=== PATIENT | female | born 1945 | race Caucasian/White ===

== ENCOUNTER 2016-05-27 22:04 | Emergency (ER) | payer OTHER ==
[~2016-05-27] VITALS: Ht 162.6 cm; Wt 49.9 kg
[~2016-05-27 22:04] MED LIST: AMBIEN10 M1 PO; AUGMENTIN 875 M1 TAB PO; BONIVA150 MG PO; CORGARD80 M1 PO; EXCEDRIN EXTRA1 SGL PO; FIORICET 325 MG1 TAB PO; LEADER MELATONIN5 MG PO; LEVOTHYROXINE100 MC1 PO; MULTIVITAMIN1 TAB PO; ONDANSETRON ODT4 MG PO; PRAVACHOL40 M1 PO; PREDNISONE 20MG20 MG PO; PRINIVIL10 M1 PO; SINGULAIR10 M1 PO; SUMATRIPTAN SU100 MG PO; VENLAFAXINE HY150 MG PO; VENLAFAXINE HYD75 MG PO; VITAMIN C500 M3 PO
--- NOTE | 2016-05-27 23:16 | ED HEADACHE COMPLAINT ---
History of Present Illness General Chief Complaint: Headache Stated Complaint: HEADACHE X 2 DAYS,DOUBLE VISION Source: patient Exam Limitations: no limitations Vital Signs & Intake/Output Vital Signs & Intake/Output Vital Signs Date Time Temp Pulse Resp B/P Pulse O2 O2 Flow FiO2 Ox Delivery Rate 05/28 0611 98.5 84 18 125/66 95 Room Air 05/28 0330 101.3 05/28 0134 101.3 83 20 186/94 96 Room Air 05/27 2315 199/98 05/27 2212 101.2 87 18 193/98 93 Room Air ED Intake and Output 05/28 0000 05/27 1200 Intake Total 0 Output Total Balance 0 Intake, Oral 0 Patient 110 lb Weight Allergies Coded Allergies: azithromycin (Intermediate, HIGH BP 05/27/16) carisoprodol (From Soma) (Intermediate, MAKES ME DRUNK 05/27/16) Reconcile Medications Acetaminophen/Butalbital/Caf (Fioricet 325 MG-50 MG-40 MG) 1 TAB TAB 1 TAB PO TID PRN HEADACHES AMOXICILLIN/POTASSIUM CLAV (Augmentin 875-125 Tablet) 875 MG/125 MG TAB 1 TAB PO BID SINSUITIS Ascorbic Acid (Vitamin C) (Unknown Strength) TAB (Unknown Dose) PO DAILY SUPPLEMENT (Reported) ASPIRIN/ACETAMINOPHEN/CAFFEINE (Excedrin Extra Strength Gelcap) 1 SGL SGL 1-5 TAB PO PRN MIGRAINES (Reported) Ibandronate Sodium (Boniva) 150 MG TAB 1 TAB PO Q30D BONES (Reported) on the same date with a full glass of water at least 30 minutes before first food or drink of the day; remain in an upright posi Levothyroxine Sodium (Levothroid Sodium) 0.1 MG TAB 1 TAB PO DAILY HASHIMOTOS (Reported) Lisinopril (Prinivil) 5 MG TAB 1 TAB PO DAILY BP (Reported) Melatonin 5 MG TAB 1 TAB PO QPM SLEEP (Reported) Montelukast Sodium (Singulair) 10 MG TAB 1 TAB PO DAILY COPD (Reported) Multivitamin (Multiple Vitamins) 1 TAB TAB 1 TAB PO DAILY SUPPLEMENT ( Reported) Nadolol 80 MG TAB 1 TAB PO DAILY BP (Reported) Ondansetron (Ondansetron Odt) 4 MG ODT 1 TAB PO PRN N/V (Reported) Oseltamivir Phosphate (Tamiflu) 75 MG CAPSULE 1 CAP PO BID FLU Pravastatin Sodium 40 MG TAB 1 TAB PO QPM CHOLESTEROL (Reported) Prednisone 20 MG TAB 3 TAB PO DAILY MIGRAINE Sumatriptan Succinate 100 MG TAB 1 TAB PO AD PRN MIGRAINES (Reported) may repeat in 2 hours; do not exceed 200 mg in 24 hours VENLAFAXINE HCL (Venlafaxine Hydrochloride) 75 MG TAB 1 TAB PO QAM MENTAL HEALTH (Reported) VENLAFAXINE HCL (Venlafaxine HCl ER) 150 MG CER 1 CAP PO Q1600 MENTAL HEALTH (Reported) Zolpidem Tartrate (Ambien 10MG) 10 MG TAB 1 TAB PO QPM PRN SLEEP (Reported) Triage Note: PT TO TRIAGE WITH C/O HEADACHE 11/09, SINUS CONGESTION, PRODUCTIVE COUGH, NAUSEA x2DAYS. TEMP 101.9 IN TRIAGE, BP 193/98. PT DENIES CHEST PAIN,SOB, DENIES ABD PAIN,V/D, DENIES URINARY S/S. ALSO PT REPORTS DOUBLE VISION TO L EYE WHICH IS CRONIC. Triage Nurses Notes Reviewed? yes HPI: Patient presents for evaluation of a migratory headache that began yesterday. She states she was seen once before for a headache like this and was treated for migraine with improvement. She denies any associated fever or cold symptoms. She denies any trouble moving her neck around. The headache pain described as severe constant and nothing seems to make it feel better or worse. Also had nasal congestion. She had a CAT scan done yesterday by her primary care physician though she doesn't know the result. Past History Travel History Traveled to [place] past 21 day No Medical History Any Pertinent Medical History? see below for history Cardiovascular: hypertension, HIGH CHOLESTEROL Respiratory: COPD Gastrointestinal: DIVERTICULITIS Musculoskeletal: OSTEOPOROSIS Psychiatric: anxiety, depression Endocrine: JENNY'S Cancer(s): BREAST CA Surgical History Surgical History: non-contributory Psychosocial History What is your primary language Persian Tobacco Use: Never used Family History Hx Contributory? No Review of Systems Review of Systems Constitutional: Reports: no symptoms. Eyes: Reports: no symptoms. Ears, Nose, Throat, Mouth: Reports: see HPI. Respiratory: Reports: no symptoms. Cardiovascular: Reports: no symptoms. Gastrointestinal/Abdominal: Reports: no symptoms. Genitourinary: Reports: no symptoms. Musculoskeletal: Reports: no symptoms. Skin: Reports: no symptoms. Neurological/Psychological: Reports: headache. Hematologic/Endocrine: Reports: no symptoms. Endocrine: Reports: no symptoms. Immunologic/Allergic: Reports: no symptoms. All Other Systems: Reviewed and Negative Physical Exam Physical Exam Cranial Nerves: SEE BELOW Comments: Gen.: Well-nourished, well-developed, no acute respiratory distress. Head: Normocephalic, atraumatic. Eyes: Normal inspection bilaterally Ears: Normal inspection bilaterally Nose: Normal inspection Throat/mouth : Moist mucosa Neck: Supple, full range of motion, no goiter Heart: Regular rate and rhythm, no murmurs rubs or gallops Lungs: Clear to auscultation bilaterally with normal air entry Chest: Nontender Back: Normal range of motion Abdomen: Soft, nontender, nondistended, normal bowel sounds Extremities: Normal range of motion grossly, equal radial pulses, no cyanosis clubbing or edema Neurologic: Cranial nerves grossly intact, speech is clear Skin: warm and dry Psychiatric: Calm, cooperative, no apparent delusions or hallucinations Core Measures Severe Sepsis Present: No Septic Shock Present: No Progress Differential Diagnosis: migraine CROCKETT, musculoskeletal pain, viral cephalgia Plan of Care: Orders Procedure Date/time Status RAPID VIRAL INFLUENZA A 05/27 2316 Complete Microbiology 05/27 2317 NASOPHARYN: Influenza Virus A & B Rapid Smear - COMP INFLUENZA TYPE A Comments: 05/28/2016 12:41:19 AM Kristina is unsure if she requires any additional medication. When her nurse came in to give her additional pain medications she stated that she didn't need it. I went in to reevaluate her she stated that her head still hurts. But then she seemed to recanted. Seems that she is rather sedated by the Phenergan so I will reevaluate later and medicate accordingly. Hopefully at that time her sensorium will have cleared. 05/28/2016 3:22:06 AM Kristina is answering questions much more readily and her sensorium seems considerably clearer. She states her headache is now over the right forehead (the headache seems to move around). We will recheck a temperature and give a dose of acetaminophen. 05/28/2016 6:40:20 AM Per patient's RN, she is afebrile and her headache is resolved. Departure Departure Disposition: HOME OR SELF CARE Condition: Stable Clinical Impression Primary Impression: Migraine Qualifiers: Migraine type: unspecified Status migrainosus presence: with status migrainosus Intractability: not intractable Qualified Code: G43.901 - Migraine, unspecified, not intractable, with status migrainosus Secondary Impressions: Influenza Referrals: VISHAL SCHWARZ MD (PCP/Family) Additional Instructions: Tamiflu as prescribed. Ibuprofen 600 mg every 6 hours as needed for fever or cold symptoms or pain. Follow-up with your primary care physician this week for reevaluation if not improving. Return if any concerns or sudden worsening. Departure Forms: Customer Survey General Discharge Information Prescriptions: Current Visit Scripts Oseltamivir Phosphate (Tamiflu) 1 CAP PO BID #10 CAP
[2016-05-28 06:11] VITALS: BP 125/66
[2016-05-28] MEDS ORDERED: TAMIFLU75 M1 PO (06:15)
== END 2016-05-28 07:09 ==
LOC: ERH 22:04
DX: G43.909 Migraine, unspecified, not intractable, without status migrainosus (principal); J11.1 Influenza due to unidentified influenza virus with other respiratory manifestations
CPT/HCPCS: 87804; 87804-59; 96374; 96375; J0131; J1885; J2550

== ENCOUNTER 2016-06-05 05:24 | Inpatient (IN) | payer OTHER ==
[~2016-06-05] VITALS: Ht 161.3 cm; Wt 47.3 kg
[~2016-06-05 05:24] MED LIST changes: +TAMIFLU75 M1 PO
--- NOTE | 2016-06-05 05:42 | NUR ---
PT TO ED C/O INSOMNIA, FATIGUE AND POOR APPETITE FOR 2 DAYS. DX WITH FLU 1 WEEK AGO. JUSTFINISHED TAMILFLU. "FOOD IS TASTELESS" DR ALEJANDRO INTO EVAL PT
--- NOTE | 2016-06-05 05:50 | ED AMS/SEIZURE/WEAK/DIZZY ---
History of Present Illness General Chief Complaint: General Adult Stated Complaint: "NOT ABLE TO SLEEP NOR EAT X2DAYS,WEAKNESS" Source: patient Exam Limitations: no limitations Vital Signs & Intake/Output Vital Signs & Intake/Output Vital Signs Date Time Temp Pulse Resp B/P Pulse O2 O2 Flow FiO2 Ox Delivery Rate 06/05 1457 97.3 68 18 156/90 96 06/05 0651 97.3 68 18 127/69 97 Room Air 06/05 0555 95 Room Air 06/05 0545 184/96 06/05 0540 95.9 79 18 178/101 95 Room Air Allergies Coded Allergies: azithromycin (Intermediate, HIGH BP 05/27/16) carisoprodol (From Soma) (Intermediate, MAKES ME DRUNK 05/27/16) Triage Note: PT TO ED C/O INSOMNIA, FATIGUE AND POOR APPETITE FOR 2 DAYS. DX WITH FLU 1 WEEK AGO. JUSTFINISHED TAMILFLU. "FOOD IS TASTELESS" DR FLAVIA GOMEZ EVAL PT Triage Nurses Notes Reviewed? yes Onset: Gradual Duration: day(s): Timing: recent history Injury Environment: home Severity: moderate Modifying Factors: Improves With: rest. Associated Symptoms: weakness HPI: 70-year-old woman presents with weakness and insomnia. She states that she was diagnosed with influenza last week. She completed 5 days of Tamiflu. She states, "since then I have been so weak. I can't eat. The food tastes so plan. I haven't slept in days. I just feel so weak and so tired all over." She denies fever diarrhea dysuria chest pain shortness of breath. (FLAVIA ESPINOSA,MALCOLM Zamorano) Reconcile Medications Ibandronate Sodium (Boniva) 150 MG TABLET 1 TAB PO Q30D BONE (Reported) on the same date with a full glass of water at least 30 minutes before first food or drink of the day; remain in an upright posi Levothyroxine Sodium 100 MCG TABLET 1 TAB PO DAILY AC THYROID (Reported) Lisinopril (Prinivil) 10 MG TABLET 1 TAB PO DAILY HEART (Reported) Mirtazapine 30 MG TABLET 1 TAB PO QPM SLEEP (Reported) Montelukast Sodium (Singulair) 10 MG TABLET 1 TAB PO DAILY COPD (Reported) Nadolol (Corgard) 80 MG TABLET 1 TAB PO DAILY HEART (Reported) Oseltamivir Phosphate (Tamiflu) 75 MG CAPSULE 1 CAP PO BID FLU Pravastatin Sodium (Pravachol) 40 MG TABLET 1 TAB PO DAILY CHOLESTEROL ( Reported) Zolpidem Tartrate (Ambien) 10 MG TABLET 1 TAB PO QPM SLEEP (Reported) (LIZBETH ESPINOSA,ELIAZAR Fletcher) Past History Travel History Traveled to [place] past 21 day No Medical History Any Pertinent Medical History? see below for history Cardiovascular: hypertension, HIGH CHOLESTEROL Respiratory: COPD Gastrointestinal: DIVERTICULITIS Musculoskeletal: OSTEOPOROSIS Psychiatric: anxiety, depression Endocrine: JENNY'S Cancer(s): BREAST CA Surgical History Surgical History: non-contributory Psychosocial History What is your primary language Italian Family History Hx Contributory? No (FLAVIA ESPINOSA,MALCOLM Zamorano) Review of Systems Review of Systems Constitutional: Reports: no symptoms. EENTM: Reports: no symptoms. Respiratory: Reports: no symptoms. Cardiovascular: Reports: no symptoms. GI: Reports: no symptoms. Genitourinary: Reports: no symptoms. Musculoskeletal: Reports: no symptoms. Skin: Reports: no symptoms. Neurological/Psychological: Reports: no symptoms. Hematologic/Endocrine: Reports: no symptoms. Immunologic/Allergic: Reports: no symptoms. All Other Systems: Reviewed and Negative (FLAVIA ESPINOSA,MALCOLM Zamorano) Physical Exam Physical Exam General Appearance: well developed/nourished, moderate distress Head: atraumatic Eyes: Bilateral: normal appearance. Ears, Nose, Throat: normal pharynx, normal ENT inspection, dry mucosa Neck: normal inspection, supple, full range of motion Respiratory: normal breath sounds, chest non-tender, no respiratory distress, quiet respiration, lungs clear Cardiovascular: regular rate/rhythm Gastrointestinal: normal bowel sounds, soft, non-tender, no organomegaly Back: normal inspection, normal range of motion, vertebral tenderness Extremities: normal range of motion Neurologic/Psych: no motor/sensory deficits, awake, alert, oriented x 3 Skin: intact, normal color, warm/dry Core Measures ACS in differential dx? No CVA/TIA Diagnosis: No Severe Sepsis Present: No Septic Shock Present: No (FLAVIA ESPINOSA,MALCOLM Zamorano) Progress Differential Diagnosis: dehydration versus renal failure versus postviral syndrome versus other Plan of Care: Orders Procedure Date/time Status Regular Diet 06/05 D Active Patient Data - inpatient psych 06/05 1406 Active Admit to inpatient psych 06/05 1406 Active Add-on Test (ER Only) 06/05 1308 Active ED CRISIS PSYCH CONSULT 06/05 1308 Active THYROID STIMULATING HORMONE 06/05 0555 Complete ETHANOL 06/05 0555 Complete Intake & Output 06/05 0554 Active URINE DRUGS OF ABUSE 06/05 0532 Complete URINALYSIS 06/05 0532 Complete TROPONIN LEVEL 06/05 0532 Complete COMPREHENSIVE METABOLIC PANEL 06/05 0532 Complete CBC WITHOUT DIFFERENTIAL 06/05 0532 Complete EKG 06/05 0532 Active Vital Signs 06/05 UNK Active Nursing Misc 06/05 UNK Active Alternative Nursing Therapy 06/05 UNK Active Activity/Ambulation 06/05 UNK Active Current Medications Sig/Dylan Start time Last Medication Dose Stop Time Status Admin Lisinopril 10 MG DAILY 06/06 1000 UNVr (Prinivil) Nadolol 80 MG DAILY 06/06 1000 UNVr (Corgard) Pravastatin Sodium 40 MG DAILY 06/06 1000 UNVr (Pravachol) Levothyroxine Sodium 0.1 MG DAILY AC 06/06 0700 UNVr (Synthroid) Mirtazapine 30 MG AT BEDTIME 06/05 2200 AC (Remeron) Montelukast Sodium 10 MG AT BEDTIME 06/05 2200 AC (Singulair) Zolpidem Tartrate 10 MG AT BEDTIME 06/05 2200 AC (Ambien) Acetaminophen 500 MG Q6P PRN 06/05 1430 UNVr (Tylenol) Al Hydroxide/Mg 30 ML Q6-PRN PRN 06/05 1430 UNVr Hydroxide (Maalox Plus) Magnesium Hydroxide 30 ML AT BEDTIME PRN 06/05 1430 UNVr (Milk Of Magnesia) Laboratory Tests 06/05/16 0850: Urine Opiates Screen < 100.00, Methadone Screen < 40, Barbiturate Screen < 60, Ur Phencyclidine Scrn < 6.00, Amphetamines Screen < 100, U Benzodiazepines Scrn < 85, Urine Cocaine Screen < 50, Urine Cannabis Screen < 5.00, Urine Color YEL, Urine Clarity CLEAR, Urine pH 6.5, Ur Specific [place] 1.010, Urine Protein NEG, Urine Ketones NEG, Urine Nitrite NEG, Urine Bilirubin NEG, Urine Urobilinogen 0.2, Ur Leukocyte Esterase NEG, Ur Microscopic EXAM NOT REQUIRED, Urine Hemoglobin NEG, Urine Glucose NEG 06/05/16 0555: Anion Gap 9, Estimated GFR > 60, BUN/Creatinine Ratio 34.4 H, Glucose 96, Calcium 9.9, Total Bilirubin 0.8, AST 27, ALT 40, Alkaline Phosphatase 56, Troponin I < 0.01, Total Protein 7.1, Albumin 3.7, Globulin 3.4, Albumin/ Globulin Ratio 1.1, TSH 11.800 H, CBC w Diff NO MAN DIFF REQ, RBC 4.85, MCV 86.7, MCH 28.2, RDW 13.2, MPV 6.9 L, Gran % 76.0 H, Lymphocytes % 12.5 L, Monocytes % 8.2, Eosinophils % 2.7, Basophils % 0.6, Absolute Granulocytes 10.7 H, Absolute Lymphocytes 1.8, Absolute Monocytes 1.2 H, Absolute Eosinophils 0.4 , Absolute Basophils 0.1, PUBS MCHC 32.5 L, Serum Alcohol < 10.0 Initial ED EKG: normal axis, normal intervals, normal p-waves, normal QRS complex, normal sinus rhythm Hand-Off Endorsed To: LIZBETH ESPINOSA,ELIAZAR Fletcher Endorsed Time: 717 Pending: labs, other (CLINICAL RESPONSE) (FLAVIA ESPINOSA,MALCOLM Zamorano) Comments: 06/05/2016 10:45:33 AM patient signed out to me by Dr. Davey at shift acid changer. I have reevaluated Kristina and she is still concerned about her worsening insomnia over the past week or so. She states the Ambien is no longer helping her. She states she has been treated for depression in the past and feels that there is an element of depression recently (she doesn't take any antidepressant medications currently). She is willing to speak with crisis about these issues. 06/05/2016 11:33:53 AM patient's case discussed with crisis. 06/05/2016 1:08:37 PM the patient appears to be severely depressed and inpatient psychiatry admission is being considered. (LIZBETH ESPINOSA,ELIAZAR Fletcher) Departure Departure Condition: Stable Departure Forms: Customer Survey General Discharge Information Comments pt with elevated bun/cr ratio... likely post-viral myalgia/dehydration/ weakness... Will hydrate... Pt signed out to dr. smith for clinical response. (FLAVIA ESPINOSA,MALCOLM Zamorano) Departure Disposition: STILL A PATIENT Clinical Impression Primary Impression: Weakness Secondary Impressions: Depression Qualifiers: Depression Type: unspecified Qualified Code: F32.9 - Major depressive disorder, single episode, unspecified Referrals: VISHAL SCHWARZ MD (PCP/Family) (ELIAZAR SMITH MD
--- NOTE | 2016-06-05 05:53 | NUR ---
DRY COUGH NOTED. RHONCHI ON AUSCULTAION PT STATES SHE HAS HAD COUGH FOR A COUPLE OF WEEKS "IT WILL BECOME MORE PRODUCTIVE LATER IN THE DAY, IT ALSWAYS STARTS OUT DRY"
[2016-06-05 06:05] LABS: ABSOLUTE BASOPHIL COUNT 0.1 /CUMM (0.0-0.2); ABSOLUTE EOSINOPHIL COUNT 0.4 /CUMM (0.0-0.7); ABSOLUTE GRANULOCYTE CT 10.7 /CUMM (1.4-6.5); ABSOLUTE LYMPH COUNT 1.8 /CUMM (1.2-3.4); ABSOLUTE MONOCYTE COUNT 1.2 /CUMM (0.10-0.60); BASOPHIL % 0.6 % (0.0-2.0); EOSINOPHIL % 2.7 % (0-5); HEMATOCRIT 42.1 % (37-47); MEAN CORPUSCULAR HGB 28.2 PG (27.0-31.0); MEAN CORPUSCULAR HGB CONC 32.5 G/DL (33.0-37.0); MEAN CORPUSCULAR VOLUME 86.7 FL (81.0-99.0); MEAN PLATELET VOLUME 6.9 FL (7.4-10.4); PLATELET COUNT 414 /CUMM (130-400); RBC DISTRIBUTION WIDTH 13.2 % (11.5-14.5); RED BLOOD CELL CT 4.85 /CUMM (4.20-5.40); WHITE BLOOD CELL COUNT 14.1 /CUMM (4.8-10.8)
--- NOTE | 2016-06-05 06:05 | NUR ---
PT MEDICATED WITH 0.5 MG ATIVAN PO ORDERED. 1L NS INFUSING
--- NOTE | 2016-06-05 07:30 | NUR ---
PT RESTING COMFORTABLY AT THIS TIME, PT AWARE OF NEED FOR URINE SPECIMEN WHEN ABLE TO PROVIDE. PT STATING "I'M JUST WIPED OUT".
--- NOTE | 2016-06-05 07:53 | RADIOLOGY REPORT ---
EXAMINATION: XR PORTABLE CHEST CLINICAL INFORMATION: Cough and dyspnea. COMPARISON: None TECHNIQUE: Portable AP view of the chest was obtained. FINDINGS: The cardiomediastinal silhouette is within normal limits. The lungs are hyperexpanded. There is bronchial wall thickening with reticular nodular opacities throughout both lungs. Biapical scarring. No focal consolidation or effusion. IMPRESSION: Hyperexpanded lungs with airway wall thickening and reticulonodular interstitial pattern throughout both lungs. Findings may reflect chronic bronchitis, but an acute component cannot be excluded as there is no prior for comparison. The nodular opacities may reflect mucous plugging, but true parenchymal nodules cannot be excluded. Recommend CT chest with intravenous contrast for further evaluation.
--- NOTE | 2016-06-05 09:00 | NUR ---
PT AMBULATORY TO BATHROOM, GAIT STABLE. URINE TRIO SENT TO LAB.
--- NOTE | 2016-06-05 09:43 | NUR ---
PT NAPPING AT THIS TIME, NO COMPLAINTS AT PRESENT.
--- NOTE | 2016-06-05 10:20 | NUR ---
PT RESTING ON STRETCHER, WATCHING TV AT THIS TIME. NO COMPLAINTS AT PRESENT, PT STATING "I JUST WISH I COULD SLEEP".
[2016-06-05] MEDS ORDERED: BONIVA150 M1 PO (10:51)
[2016-06-05] MEDS ORDERED: MIRTAZAPINE30 M2 PO (10:51)
--- NOTE | 2016-06-05 12:23 | NUR ---
CRISIS NNAMDI IN TO [facility] PT, PT CURRENTLY ON PHONE WITH DAUGHTER AT THIS TIME.
--- NOTE | 2016-06-05 12:46 | NUR ---
PT NOW OFF PHONE, AMBULATORY TO DOORWAY ASKING OF WATER. PT'S CUP FROM HOME FILLED WITH ICE WATER.
--- NOTE | 2016-06-05 13:10 | NUR ---
CRISIS NNAMDI IN TO [facility] PT CONSENTING FOR CPS ADMISSION. SECURITY MAGALYS AT BEDSIDE FOR WANDING AT THIS TIME.
--- NOTE | 2016-06-05 13:38 | ED PSYCH CRISIS CONSULTATION ---
Crisis Consult Basic Assessment Date of Consult: 06/05/16 Responsible Person/Accompanied By: self Insurance Authorization: Insurance #1: Insurance name: [employer] Phone number: Policy number: [id number] Group number: [id number] Authorization number: ED Provider: Patient's ED Provider: ELIAZAR NIEVES MD Primary Care Physician: Patient's PCP: VISHAL SCHWARZ MD PCP's Current Psychiatrist: none Chief Complaint: General Adult Patient's Quote: "There is no purpose to life anymore" Present Illness: Pt is a 70yo female who self presented to the emergency room due to feeling weak and unable to sleep. As the ED MD was speaking with her it became clear that pt is suffering from severe Depression, so crisis was asked to evaluate her. Pt presents as very despondent and tearful. She reports that she has not been sleeping, eating, going to work, cleaning her home, nor attending to her personal hygiene due to the severity of her depression. Pt also reports that she has been isolating. Pt reports low motivation, lose of interest, hopelessness and helplessness. Pt denies any suicidal ideation, but she does express there is "There is no purpose to life anymore." Pt denies any alcohol or substance use. Pt denies that she is in any current mental health tx, but admits to prior inpt psych tx in the at [facility] and was also in out pt tx ther. Pt does not remember the specific year. Pt would like to be admitted voluntarily to address her depression. Crisis spoke with Pt's daughter Concepción zSymanski [phone] who expressed great concern for her Mom and is worried that if she does not get help that she may become suicidal sincere she is already stating that there is no more purpose. She supports her mother being admitted to treat her depression. She asks that pt not be given xanax as pt was on it for 10 years and became dependent on it. case reviewed with Dr. Ho who approved admit to [facility]. Patient's Address: [address] [place] [address] Other Phone Number: Who Do You Live With? Patient/Self Family/Informants Interviewed: daughter Allergies - Coded Allergies: azithromycin (Intermediate, HIGH BP 05/27/16) carisoprodol (From Soma) (Intermediate, MAKES ME DRUNK 05/27/16) Current Medications - Scheduled Medications Ibandronate Sodium (Boniva) 150 MG TABLET 1 TAB PO Q30D BONE #3 (Reported) Entered as Reported by SUSAN GOMES on 06/05/16 1051 Levothyroxine Sodium 100 MCG TABLET 1 TAB PO DAILY AC THYROID (Reported) Entered as Reported by RODY FARRIS on 02/19/15 190 Lisinopril (Prinivil) 10 MG TABLET 1 TAB PO DAILY HEART (Reported) Entered as Reported by RODY FARRIS on 02/19/15 190 Mirtazapine 30 MG TABLET 1 TAB PO QPM SLEEP #30 (Reported) Entered as Reported by SUSAN GOMES on 06/05/16 1051 Montelukast Sodium (Singulair) 10 MG TABLET 1 TAB PO DAILY COPD (Reported) Entered as Reported by RODY FARRIS on 02/19/15 190 Nadolol (Corgard) 80 MG TABLET 1 TAB PO DAILY HEART (Reported) Entered as Reported by RODY FARRIS on 02/19/15 191 Oseltamivir Phosphate (Tamiflu) 75 MG CAPSULE 1 CAP PO BID FLU #10 CAP Prescribed by ELIAZAR NIEVES MD on 05/28/16 Pravastatin Sodium (Pravachol) 40 MG TABLET 1 TAB PO DAILY CHOLESTEROL ( Reported) Entered as Reported by RODY FARRIS on 02/19/151904 Zolpidem Tartrate (Ambien) 10 MG TABLET 1 TAB PO QPM SLEEP (Reported) Entered as Reported by RODY FARRIS on 02/19/151906 Laboratory Results: Laboratory Tests 06/05/16 0850: Urine Opiates Screen < 100.00, Methadone Screen < 40, Barbiturate Screen < 60, Ur Phencyclidine Scrn < 6.00, Amphetamines Screen < 100, U Benzodiazepines Scrn < 85, Urine Cocaine Screen < 50, Urine Cannabis Screen < 5.00, Urine Color YEL, Urine Clarity CLEAR, Urine pH 6.5, Ur Specific Mcroberts 1.010, Urine Protein NEG, Urine Ketones NEG, Urine Nitrite NEG, Urine Bilirubin NEG, Urine Urobilinogen 0.2, Ur Leukocyte Esterase NEG, Ur Microscopic EXAM NOT REQUIRED, Urine Hemoglobin NEG, Urine Glucose NEG 06/05/16 0555: Anion Gap 9, Estimated GFR > 60, BUN/Creatinine Ratio 34.4 H, Glucose 96, Calcium 9.9, Total Bilirubin 0.8, AST 27, ALT 40, Alkaline Phosphatase 56, Troponin I < 0.01, Total Protein 7.1, Albumin 3.7, Globulin 3.4, Albumin/ Globulin Ratio 1.1, TSH 11.800 H, CBC w Diff NO MAN DIFF REQ, RBC 4.85, MCV 86.7, MCH 28.2, RDW 13.2, MPV 6.9 L, Gran % 76.0 H, Lymphocytes % 12.5 L, Monocytes % 8.2, Eosinophils % 2.7, Basophils % 0.6, Absolute Granulocytes 10.7 H, Absolute Lymphocytes 1.8, Absolute Monocytes 1.2 H, Absolute Eosinophils 0.4 , Absolute Basophils 0.1, PUBS MCHC 32.5 L, Serum Alcohol < 10.0 Past History Past Medical History Cardiovascular: hypertension, HIGH CHOLESTEROL Respiratory: COPD Gastrointestinal: DIVERTICULITIS Musculoskeletal: OSTEOPOROSIS Psychiatric: anxiety, depression Endocrine: JENNY'S Cancer(s): BREAST CA Past Surgical History Surgical History: non-contributory Psychosocial History Strengths/Capabilities: supportive family, accepting help Physical Limitations (Interventions): none reported Psychiatric Treatment History Psych Treatment Psychiatric Treatment Yes Inpatient Treatment Yes Outpatient Treatment Yes Location of Treatment [facility] Reason for Treatment Depression Dates of Treatment Response to Treatment unclear Diagnosis by History: Depression Substance Use/Abuse History Drug Use/Abuse Substances Used/Abused No Substance Abuse Treatment Substance Abuse Treatment Past Substance Abuse [place] No Inpatient Treatment No Outpatient Treatment No Current Mental Status Mental Status Orientation: Person, Place, Situation Affect: Depressed, Hopeless, Sad Speech: WNL Neuro-vegetative: Anhedonia, Appetite Decreased, Concentration Poor, Energy Decreased, Helpless, Loss of Interest, Sleep Disturbance Appearance Appearance- Dress/Hygiene: pt reports that she has only showered 1x in a week Behaviors Thought Process: WNL Thought Content: WNL Memory: WNL Insight: WNL SI/HI Risk Assessment Past Suicidal Ideation/Attempts No Current Suicidal Ideation/Att No Past Homicidal Ideation/Att: No Current Homicidal Ideation/Attempts No Degree of Intent: None Gravely Disabled: Inability Risk Factors: age (under 24/over 65), access to lethal means, isolate/no social support, lives alone, limited support Lethality Ratin PTSD Checklist PTSD Done? patient declined (denies trauma hx) ED Management Sitter: No Restraints: No DSM5/PS Stressors/Medical Prob Diagnosis' (DSM 5, Stressors, Medical): Unspecified Depression F32.9 Current GAF: 25 Departure Disposition Psych Medical Clearance Date: 06/05/16 Medically Cleared at: 1300 Time Started: 1300 Time Ended: 1400 Psychiatrist Consulted: Dr. Sheth Date Disposition Established: 06/05/16 Time Disposition Established: 1400 Plan for Disposition - Modality: Inpatient Psychiatry Facility: [facility] Rationale for Disposition: Treatment to stabilize depression Type of IP Admission: Voluntary Referrals VISHAL SCHWARZ MD (PCP/Family)
--- NOTE | 2016-06-05 14:00 | NUR ---
CRISIS NNAMDI IN TO EVAL.
--- NOTE | 2016-06-05 15:09 | IP CRISIS DIAG ASSESS PSYCH ---
Diagnostic Assessment Basic Assessment Insurance Authorization: Insurance #1: Insurance name: [facility] Phone number: [phone] Policy number: [id number] Group number: [id number] Authorization number: [id number] 5 days approved by Chrystal 06/05/16-06/09/16 Primary Care Physician: Patient's PCP: VISHAL SCHWARZ MD PCP's Patient's Quote: "There is no purpose to life anymore" Present Illness: Pt is a 70yo female who self presented to the emergency room due to feeling weak and unable to sleep. As the ED MD was speaking with her it became clear that pt is suffering from severe Depression, so community hospital was asked to evaluate her. Pt presents as very despondent and tearful. She reports that she has not been sleeping, eating, going to work, cleaning her home, nor attending to her personal hygiene due to the severity of her depression. Pt also reports that she has been isolating. Pt reports low motivation, lose of interest, hopelessness and helplessness. Pt denies any suicidal ideation, but she does express there is "There is no purpose to life anymore." Pt denies any alcohol or substance use. Pt denies that she is in any current mental health tx, but admits to prior inpt psych tx in the at [facility] and was also in out pt tx ther. Pt does not remember the specific year. Pt would like to be admitted voluntarily to address her depression. Crisis spoke with Pt's daughter Concepción Szymanski [phone] who expressed great concern for her Mom and is worried that if she does not get help that she may become suicidal sincere she is already stating that there is no more purpose. She supports her mother being admitted to treat her depression. She asks that pt not be given xanax as pt was on it for 10 years and became dependent on it. case reviewed with Dr. Ho who approved admit to [facility]. Patient's Address: [address] [place] [id number] Other Phone Number: Who Do You Live With? Patient/Self Feel Safe Where You Live? No (afraid to be home right now) Feel Safe in Your Relationship Yes Marital Status: Do You Have Children? Yes Ages? 41 and 43 Primary Language? Erit[place] Language(s) Spoken At Home: Eritrean Family/Informants Interviewed: daughter Allergies - Coded Allergies: azithromycin (Intermediate, HIGH BP 05/27/16) carisoprodol (From Soma) (Intermediate, MAKES ME DRUNK 05/27/16) Current Medications - Scheduled Medications Ibandronate Sodium (Boniva) 150 MG TABLET 1 TAB PO Q30D BONE #3 (Reported) Entered as Reported by SUSAN GOMES on 06/05/16 1051 Levothyroxine Sodium 100 MCG TABLET 1 TAB PO DAILY AC THYROID (Reported) Entered as Reported by RODY FARRIS on 02/19/151908 Lisinopril (Prinivil) 10 MG TABLET 1 TAB PO DAILY HEART (Reported) Entered as Reported by RODY FARRIS on 02/19/151904 Mirtazapine 30 MG TABLET 1 TAB PO QPM SLEEP #30 (Reported) Entered as Reported by SUSAN GOMES on 06/05/16 1051 Montelukast Sodium (Singulair) 10 MG TABLET 1 TAB PO DAILY COPD (Reported) Entered as Reported by RODY FARRIS on 02/19/151905 Nadolol (Corgard) 80 MG TABLET 1 TAB PO DAILY HEART (Reported) Entered as Reported by RODY FARRIS on 02/19/151910 Oseltamivir Phosphate (Tamiflu) 75 MG CAPSULE 1 CAP PO BID FLU #10 CAP Prescribed by ELIAZAR NIEVES MD on 05/28/16 Pravastatin Sodium (Pravachol) 40 MG TABLET 1 TAB PO DAILY CHOLESTEROL ( Reported) Entered as Reported by RODY FARRIS on 02/19/151904 Zolpidem Tartrate (Ambien) 10 MG TABLET 1 TAB PO QPM SLEEP (Reported) Entered as Reported by RODY FARRIS on 02/19/151906 Lab Results: Laboratory Tests 06/05/16 0850: Urine Opiates Screen < 100.00, Methadone Screen < 40, Barbiturate Screen < 60, Ur Phencyclidine Scrn < 6.00, Amphetamines Screen < 100, U Benzodiazepines Scrn < 85, Urine Cocaine Screen < 50, Urine Cannabis Screen < 5.00, Urine Color YEL, Urine Clarity CLEAR, Urine pH 6.5, Ur Specific [place] 1.010, Urine Protein NEG, Urine Ketones NEG, Urine Nitrite NEG, Urine Bilirubin NEG, Urine Urobilinogen 0.2, Ur Leukocyte Esterase NEG, Ur Microscopic EXAM NOT REQUIRED, Urine Hemoglobin NEG, Urine Glucose NEG 06/05/16 0555: Anion Gap 9, Estimated GFR > 60, BUN/Creatinine Ratio 34.4 H, Glucose 96, Calcium 9.9, Total Bilirubin 0.8, AST 27, ALT 40, Alkaline Phosphatase 56, Troponin I < 0.01, Total Protein 7.1, Albumin 3.7, Globulin 3.4, Albumin/ Globulin Ratio 1.1, TSH 11.800 H, CBC w Diff NO MAN DIFF REQ, RBC 4.85, MCV 86.7, MCH 28.2, RDW 13.2, MPV 6.9 L, Gran % 76.0 H, Lymphocytes % 12.5 L, Monocytes % 8.2, Eosinophils % 2.7, Basophils % 0.6, Absolute Granulocytes 10.7 H, Absolute Lymphocytes 1.8, Absolute Monocytes 1.2 H, Absolute Eosinophils 0.4 , Absolute Basophils 0.1, PUBS MCHC 32.5 L, Serum Alcohol < 10.0 Toxicology Screen Completed? Yes Results: negative Past History Past Surgical History Surgical History CATARACT Abuse/Trauma History Trauma History/Current Trauma: Denies Legal History Current Legal Status: none Have you ever been arrested? No Number of Arrests: 0 Psychosocial History Strengths/Capabilities: supportive family, accepting help Physical Limitations (Interventions): none reported Psychiatric Treatment History Psych Treatment Psychiatric Treatment Yes Inpatient Treatment Yes Outpatient Treatment Yes Location of Treatment [facility] Reason for Treatment Depression Dates of Treatment Response to Treatment unclear Diagnosis by History: Depression Risk Factors: age (under 24/over 65), access to lethal means, isolate/no social support, lives alone, limited support Substance Use/Abuse History Drug Use/Abuse minimum 12mo Hx Substances Used/Abused No Substance Abuse Treatment Substance Abuse Treatment Past Substance Abuse [place] No Inpatient Treatment No Outpatient Treatment No Sexual History Sexually Active No # of partners 0 Sexual Orientation Heterosexual Sexual Concerns: none reported Education History Highest Level of Education: bachelor's degree Preferred Learning Style: visual, auditory, experiential Current Mental Status Mental Status Orientation: Person, Place, Situation Affect: Depressed, Hopeless, Sad Speech: WNL Neuro-vegetative: Anhedonia, Appetite Decreased, Concentration Poor, Energy Decreased, Helpless, Loss of Interest, Sleep Disturbance Appearance Appearance- Dress/Hygiene: pt reports that she has only showered 1x in a week Behaviors Thought Process: WNL Thought Content: WNL Memory: WNL Insight: WNL SI/HI Risk Assessment - Minimum 6mo History- Past Suicidal Ideation/Attempts No Current Suicidal Ideation/Att No Past Homicidal Ideation/Att: No Current Homicidal Ideation/Attempts No Degree of Intent: None Gravely Disabled: Inability Risk Factors: age (under 24/over 65), access to lethal means, isolate/no social support, lives alone, limited support Lethality Ratin Needs/Init TX Plan/Goals: safety and stabilization of sx, individual group and family therapy, med eval AUDIT-C Questionnaire: AUDIT-C Questionnaire: Response Value ETOH use in the past year Never 0 # drinks typical/day Doesn't Drink 0 6 or > drinks per occasion Never 0 Total 0 DSM5/PS Stressors/Medical Prob Diagnosis' (DSM 5, Stressors, Medical): Unspecified Depression F32.9 Current GAF: 25
--- NOTE | 2016-06-05 15:14 | SOCIAL WORKER SOCIAL HX PSYCH ---
Social History Basic Assessment Insurance Authorization: Insurance #1: Insurance name: [facility] Phone number: Policy number: [id number] Group number: [id number] Authorization number: Curr Source of Income/Entitlements: employment, Medicare Primary Care Physician: Patient's PCP: VISHAL SCHWARZ MD PCP's Present Problem: Pt is a 70yo female who self presented to the emergency room due to feeling weak and unable to sleep. As the ED MD was speaking with her it became clear that pt is suffering from severe Depression, so crisis was asked to evaluate her. Pt presents as very despondent and tearful. She reports that she has not been sleeping, eating, going to work, cleaning her home, nor attending to her personal hygiene due to the severity of her depression. Pt also reports that she has been isolating. Pt reports low motivation, lose of interest, hopelessness and helplessness. Pt denies any suicidal ideation, but she does express there is "There is no purpose to life anymore." Pt denies any alcohol or substance use. Pt denies that she is in any current mental health tx, but admits to prior inpt psych tx in the at [facility] and was also in out pt tx ther. Pt does not remember the specific year. Pt would like to be admitted voluntarily to address her depression. Crisis spoke with Pt's daughter Concepción Szymanski [phone] who expressed great concern for her Mom and is worried that if she does not get help that she may become suicidal sincere she is already stating that there is no more purpose. She supports her mother being admitted to treat her depression. She asks that pt not be given xanax as pt was on it for 10 years and became dependent on it. case reviewed with Dr. Ho who approved admit to CPS. Primary Language? Pakistani Language(s) Spoken At Home: Pakistani Living Situation Rents or Owns Home? owns Feel Safe Where You Are Living No Feel Safe in Relationships? Yes Comments: Pt lives alone and reports that she is afraid to be in the home alone because if something happened to her no one would know. Allergies - Coded Allergies: azithromycin (Intermediate, HIGH BP 05/27/16) carisoprodol (From Soma) (Intermediate, MAKES ME DRUNK 05/27/16) Current Medications - Scheduled Medications Ibandronate Sodium (Boniva) 150 MG TABLET 1 TAB PO Q30D BONE #3 (Reported) Entered as Reported by SUSAN GOMES on 06/05/16 1051 Levothyroxine Sodium 100 MCG TABLET 1 TAB PO DAILY AC THYROID (Reported) Entered as Reported by RODY FARRIS on 02/19/15 190 Lisinopril (Prinivil) 10 MG TABLET 1 TAB PO DAILY HEART (Reported) Entered as Reported by RODY FARRIS on 02/19/151904 Mirtazapine 30 MG TABLET 1 TAB PO QPM SLEEP #30 (Reported) Entered as Reported by SUSAN GOMES on 06/05/16 1051 Montelukast Sodium (Singulair) 10 MG TABLET 1 TAB PO DAILY COPD (Reported) Entered as Reported by ORDY FARRIS on 02/19/151905 Nadolol (Corgard) 80 MG TABLET 1 TAB PO DAILY HEART (Reported) Entered as Reported by RODY FARRIS on 02/19/15 191 Oseltamivir Phosphate (Tamiflu) 75 MG CAPSULE 1 CAP PO BID FLU #10 CAP Prescribed by ELIAZAR NIEVES MD on 05/28/16 Pravastatin Sodium (Pravachol) 40 MG TABLET 1 TAB PO DAILY CHOLESTEROL ( Reported) Entered as Reported by RODY FARRIS on 02/19/151904 Zolpidem Tartrate (Ambien) 10 MG TABLET 1 TAB PO QPM SLEEP (Reported) Entered as Reported by RODY FARRIS on 02/19/151906 Past History Past Medical History Cardiovascular: hypertension, HIGH CHOLESTEROL Respiratory: COPD Gastrointestinal: DIVERTICULITIS Musculoskeletal: OSTEOPOROSIS Psychiatric: anxiety, depression Endocrine: JENNY'S Cancer(s): BREAST CA Past Surgical History Surgical History: non-contributory /Family History Place/Country of Origin: [place], [place] Childhood Family Constellation: Raised by Mom and Dad with 6 sibs Primary Childhood Caretakers: father, mother Family Life During Childhood: "normal" "fine" DCF Involvement? No Relationship w/Mother: Mom is . Pt reports that she was not close with her Mom Relationship w/Father: Father is . Pt reports she was close with her father Any Sibling(s)? Yes Sibling's Gender(s)/Age(s): female Sibling 1:, female Sibling 2:, male Sibling 3:, male Sibling 4:, male Sibling 5:, male Sibling 6: Relationship w/Sibling(s): Pt reports that hasal her sibs "have pushed away." Relationship w/Friends: Pt reports she has no close friends due to isolating Family Psych/Sub Abuse/Add Hx: Father alcoholism Number of Pregnancies: 2 Number of Miscarriages: 0 Number of Abortions: 0 Abuse/Trauma History Trauma History/Current Trauma: Denies Legal History Current Legal Status: none Have you ever been arrested No Number of Arrests: 0 Hx of Juvenile Legal Charges? No Psychosocial History Primary Support System: daughter, son Strengths/Capabilities: supportive family, accepting help Weaknesses: none identified at this time Physical Limitations (Interventions): none reported Last Physical: 6 months ago History of Seizures? No History of Blackouts? No ADL Limitations: none reported [place]/Social/Peer Relations Pt reports she has been isolative Meaningful Activities: Pt states that she no longer enjoys anything due to her depression but used to enjoy reading, cross stitch, knitting, juani Childhood Hoahaoism: Zoroastrian Current Sabianism Affiliation: Zoroastrian Is Spirituality Important to You? yes Patient's Ethnicity: Pakistani (Cymraes), Syriac, Mexican Cultural/Ethnic Issues: none reported Are There Developmental Issues? No Milestones Achieved: fine motor, gross motor Psychiatric Treatment History Psych Treatment Inpatient Treatment Yes Outpatient Treatment Yes Location of Treatment [place] Reason for Treatment Depression Dates of Treatment Response to Treatment unclear Precipitating Factors: Pt is a 70yo female who self presented to the emergency room due to feeling weak and unable to sleep. As the ED MD was speaking with her it became clear that pt is suffering from severe Depression, so crisis was asked to evaluate her. Pt presents as very despondent and tearful. She reports that she has not been sleeping, eating, going to work, cleaning her home, nor attending to her personal hygiene due to the severity of her depression. Pt also reports that she has been isolating. Pt reports low motivation, lose of interest, hopelessness and helplessness. Pt denies any suicidal ideation, but she does express there is "There is no purpose to life anymore." Pt denies any alcohol or substance use. Pt denies that she is in any current mental health tx, but admits to prior inpt psych tx in the at [facility] and was also in out pt tx ther. Pt does not remember the specific year. Pt would like to be admitted voluntarily to address her depression. Crisis spoke with Pt's daughter Concepción Szymanski [phone] who expressed great concern for her Mom and is worried that if she does not get help that she may become suicidal sincere she is already stating that there is no more purpose. She supports her mother being admitted to treat her depression. She asks that pt not be given xanax as pt was on it for 10 years and became dependent on it. case reviewed with Dr. Ho who approved admit to CPS. Current Ranger Aide: none Treatment of Prior Episodes: Diagnosis: Depression Psychodynamic Issues: isolative behavior Risk Factors: age (under 24/over 65), access to lethal means, isolate/no social support, lives alone, limited support Substance Use/Abuse History Drug Use/Abuse Substance Used/Abused No History Substance Abuse Treatment Substance Abuse Treatment Inpatient Treatment No Outpatient Treatment No Sexual History Sexually Active No # of partners 0 Sexual Orientation Heterosexual Sexual Concerns: none reported Education History Highest Level of Education: bachelor's degree Number of College Years: 4 College Degree/Major: education Preferred Learning Style: visual, auditory, experiential HX of Learning Difficulties: None reported Barriers to Learning: None reported Special Communication Needs: None reported Employment History Employment Employed Vocation/Occupational Hx: works at [employer] for 10 years No. of Jobs in Last 5 Years: 1 Attendance: Normal Performance: Good History Have You Been in The ? No Current Mental Status Problem List: 1. Weakness 2. Depression Mental Status Orientation: Person, Place, Situation Affect: Depressed, Hopeless, Sad Speech: WNL Neuro-vegetative: Anhedonia, Appetite Decreased, Concentration Poor, Energy Decreased, Helpless, Loss of Interest, Sleep Disturbance Appearance Appearance- Dress/Hygiene: pt reports that she has only showered 1x in a week Behaviors Thought Process: WNL Thought Content: WNL Memory: WNL Insight: WNL SI/HI Risk Assessment Past Suicidal Ideation/Attempts No Current Suicidal Ideation/Att No Past Homicidal Ideation/Att: No Current Homicidal Ideation/Attempts No Degree of Intent: None Gravely Disabled: Inability Risk Factors: Age (under 24 or over 65), High Anxiety/Distress, SA/MH Hospitalization(s), Isolated/no social suppor, Lives alone Lethality Ratin - Conclusion and Recommendations for treatment - and discharge planning Summary: Pt is a 70yo female who self presented to the emergency room due to feeling weak and unable to sleep. As the ED MD was speaking with her it became clear that pt is suffering from severe Depression, so crisis was asked to evaluate her. Pt presents as very despondent and tearful. She reports that she has not been sleeping, eating, going to work, cleaning her home, nor attending to her personal hygiene due to the severity of her depression. Pt also reports that she has been isolating. Pt reports low motivation, lose of interest, hopelessness and helplessness. Pt denies any suicidal ideation, but she does express there is "There is no purpose to life anymore." Pt denies any alcohol or substance use. Pt denies that she is in any current mental health tx, but admits to prior inpt psych tx in the at [facility] and was also in out pt tx ther. Pt does not remember the specific year. Pt would like to be admitted voluntarily to address her depression. Crisis spoke with Pt's daughter Concepción Szymanski who expressed great concern for her Mom and is worried that if she does not get help that she may become suicidal sincere she is already stating that there is no more purpose. She supports her mother being admitted to treat her depression. She asks that pt not be given xanax as pt was on it for 10 years and became dependent on it. case reviewed with Dr. Ho who approved admit to CPS.
--- NOTE | 2016-06-05 15:36 | NUR ---
MEDICATION VALUABLE BAG BROUGHT TO PHARMACY. 1 VALUABLE BAG TO MED ROOM SAFE.
--- NOTE | 2016-06-05 15:45 | NUR ---
1 CLOTHING BAG TO CLOSET,1 VALUABLE TO MED ROOM SAFE, 1 MED BAG TO PHARMACY. PT REMAINS CALM AND COOPERATIVE, "I THINK I MADE A GOOD DECISION".
--- NOTE | 2016-06-05 15:54 | NUR ---
REPORT CALLED TO [facility] NURSE ED. DISTRIBUTION CALLED FOR TRANSPORT.
--- NOTE | 2016-06-05 16:13 | NUR ---
PT TRANSPORTED AT THIS TIME. BELONGINGS BAG X 2 (2ND BAG CREATED FOR PATIENTS SHOES AND SOCKS) AND VALUABLES BAG X 1 SENT WITH PATIENT. SECURITY, TRANSPORT AND FEMALE FLOAT TECH BIRD WITH PATIENT ON TRANSPORT.
--- NOTE | 2016-06-05 17:58 | NUR ---
Admitted from ED on voluntary for depression. Denies any thoughts of suicide but reports feeling alone and depressed with decreased appetite, energy and poor sleep. 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 Recently came down with the flu despite getting flu shot. Medical hx of HTN, Hypothyroid, Hypercholesterol and breast CA. Had some lumpectomys, has no restrictions on blood pressure assessments.
--- NOTE | 2016-06-05 19:23 | History & Physical ---
General Information and HPI MD Statement: I have seen and personally examined OZZIE CLEARY and documented this H&P. The patient is a 70 year old F who presented with a patient stated chief complaint of "is no purpose to live anymore"]. Source of Information: patient Exam Limitations: no limitations History of Present Illness: 70-year-old white female who recently had "the flu" has been feeling weak unable to sleep. In the emergency room was noted to be very depressed and tearful and despondent him and not sleeping, eating or going to work him isolating has had lack of interest, feels hopeless and helpless with no suicidal ideations for those reasons is admitted for evaluation and treatment and also was noted that her TSH is high at 11.800 will adjust her medications Allergies/Medications Allergies: Coded Allergies: azithromycin (Intermediate, HIGH BP 05/27/16) carisoprodol (From Soma) (Intermediate, MAKES ME DRUNK 05/27/16) Home Med list Ibandronate Sodium (Boniva) 150 MG TABLET 1 TAB PO Q30D BONE (Reported) on the same date with a full glass of water at least 30 minutes before first food or drink of the day; remain in an upright posi Levothyroxine Sodium 100 MCG TABLET 1 TAB PO DAILY AC THYROID (Reported) Lisinopril (Prinivil) 10 MG TABLET 1 TAB PO DAILY HEART (Reported) Mirtazapine 30 MG TABLET 1 TAB PO QPM SLEEP (Reported) Montelukast Sodium (Singulair) 10 MG TABLET 1 TAB PO DAILY COPD (Reported) Nadolol (Corgard) 80 MG TABLET 1 TAB PO DAILY HEART (Reported) Oseltamivir Phosphate (Tamiflu) 75 MG CAPSULE 1 CAP PO BID FLU Pravastatin Sodium (Pravachol) 40 MG TABLET 1 TAB PO DAILY CHOLESTEROL ( Reported) Zolpidem Tartrate (Ambien) 10 MG TABLET 1 TAB PO QPM SLEEP (Reported) Compliance With Home Meds: GOOD Past History Travel History Traveled to [place] past 21 day No Medical History Neurological: migraine EENT: NONE, cataracts Cardiovascular: hypertension, HIGH CHOLESTEROL Respiratory: COPD Gastrointestinal: DIVERTICULITIS Hepatic: NONE Renal: NONE Musculoskeletal: OSTEOPOROSIS Psychiatric: anxiety, depression Endocrine: JENNY'S Blood Disorders: anemia Cancer(s): BREAST CA 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 Home ETOH Use: denies use Illicit Drug Use: denies illicit drug use Employment History Employment Employed Profession/Employer works at [employer] for 10 years Review of Systems Review of Systems Constitutional: Reports: see HPI. Exam & Diagnostic Data Last 24 Hrs of Vital Signs/I&O Vital Signs Date Time Temp Pulse Resp B/P Pulse O2 O2 Flow FiO2 Ox Delivery Rate 06/05 1600 97.7 76 18 177/93 96 Room Air 06/05 1457 97.3 68 18 156/90 96 06/05 0651 97.3 68 18 127/69 97 Room Air 06/05 0555 95 Room Air 06/05 0545 184/96 06/05 0540 95.9 79 18 178/101 95 Room Air Intake & Output 06/05 1600 06/05 0800 06/05 0000 Intake Total 0 Output Total Balance 0 Intake, Oral 0 Patient 108 lb Weight Physical Exam General Appearance Alert, Oriented X3, Cooperative, No Acute Distress Skin No Rashes, No Breakdown, No Significant Lesion HEENT PERRLA, EOMI Neck Supple, No JVD, No thryomegaly Lymphatic Axillary nl, Cervical nl Cardiovascular Regular Rate Lungs Clear to Auscultation, Normal Air Movement Abdomen Normal Bowel Sounds, Soft, No Tenderness Neurological Exam Findings: Normal Gait, Normal Speech, Strength at 5/5 X4 Ext, Normal Tone, Sensation Intact, Cranial Nerves 3-12 NL, Reflexes 2+ Cranial Nerves II through XII: Intact Extremities No Edema Vascular Normal Pulses, Pulses Symmetrical Last 24 Hrs of Labs/Eddi: Laboratory Tests 06/05/16 0850: Urine Opiates Screen < 100.00, Methadone Screen < 40, Barbiturate Screen < 60, Ur Phencyclidine Scrn < 6.00, Amphetamines Screen < 100, U Benzodiazepines Scrn < 85, Urine Cocaine Screen < 50, Urine Cannabis Screen < 5.00, Urine Color YEL, Urine Clarity CLEAR, Urine pH 6.5, Ur Specific [place] 1.010, Urine Protein NEG, Urine Ketones NEG, Urine Nitrite NEG, Urine Bilirubin NEG, Urine Urobilinogen 0.2, Ur Leukocyte Esterase NEG, Ur Microscopic EXAM NOT REQUIRED, Urine Hemoglobin NEG, Urine Glucose NEG 06/05/16 0555: Anion Gap 9, Estimated GFR > 60, BUN/Creatinine Ratio 34.4 H, Glucose 96, Calcium 9.9, Total Bilirubin 0.8, AST 27, ALT 40, Alkaline Phosphatase 56, Troponin I < 0.01, Total Protein 7.1, Albumin 3.7, Globulin 3.4, Albumin/ Globulin Ratio 1.1, TSH 11.800 H, CBC w Diff NO MAN DIFF REQ, RBC 4.85, MCV 86.7, MCH 28.2, RDW 13.2, MPV 6.9 L, Gran % 76.0 H, Lymphocytes % 12.5 L, Monocytes % 8.2, Eosinophils % 2.7, Basophils % 0.6, Absolute Granulocytes 10.7 H, Absolute Lymphocytes 1.8, Absolute Monocytes 1.2 H, Absolute Eosinophils 0.4 , Absolute Basophils 0.1, PUBS MCHC 32.5 L, Serum Alcohol < 10.0 Diagnostic Data EKG Results Normal Assessment/Plan As Ranked By This Provider Problem List: 1. Depression Qualifiers Depression Type: unspecified Qualified Code: F32.9 - Major depressive disorder, single episode, unspecified 2. Weakness 3. Influenza 4. Hypothyroidism Miscellaneous Miscellaneous Documentation Attending Case Discussed With: THOM ESPINOSA,GABY Primary Care Physician: VISHAL SCHWARZ MD Patient sees these Specialists Psychiatry Level of Patient Care: [facility] Consults Needed: Consulting Specialty: Psychiatry Consulting Physician: Dr Goodman Reason for Consult: increased depression, hypothyroidism
[2016-06-05 19:45] VITALS: BP 138/73
--- NOTE | 2016-06-06 04:16 | NUR ---
SLEPT WELL QUIET NO ISSUES THIS SHIFT.
[2016-06-06 07:37] VITALS: BP 135/90
--- NOTE | 2016-06-06 12:24 | NUR ---
PTS AFFECT IS FLAT AND MOOD IS DEPRESSED. WHEN ASKED SHE DENIED ANY SUICIDAL THOUGHTS BUT FEELS OVERWHELMED AT TIMES. SHE VERBALIZED HER CONCERNS APPROPRIATELY IN GROUPS AND WITH STAFF AND PEERS. SHE IS COMPLIANT WITH SAFF AND UNIT ROUTINE
[2016-06-06 12:48] VITALS: BP 153/78
--- NOTE | 2016-06-06 15:34 | CPS MD/APRN INITIAL ASSE PSYCH ---
Psychiatric Admission Insurance Underwriter's Note Reviewed: Yes Patient Seen and Examined: Yes Identifying Information: 70 yo DWF admitted 06/05/16 on a voluntary basis, referred by ER. Chief Complaint: Depression in the context of recent, confirmed Influenza A. Reaction to Hospitalization: Was feeling ambivalent about it but knew she needed some help. History of Present Illness Onset of Illness: Feeling depressed x months. "I think I'm a robot. I just function." Circumstances Leading to Admission: Had diagnoses Influenza A, was prescribed Tamiflu. Was out of work for a week. Had poor sleep for a week. Reports she was pacing and yelling at herself and could not focus. Buras drained. Had no energy. Wasn't feeling ready to return to work. Daughter and patient felt she was depressed. Problem(s) Justifying Need for Admission: Depressed mood. Low energy. Poor appetite. Poor sleep. 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 Feels she needs to downsize and sell home. Not sure whether to work or to retire. Sleep was good last night; it was spotty x 2 weeks. Appetite: decreased. Not finding food appetizing. Reports weight loss of 6#/couple of months. Energy: very low. Past Psychiatric History Past Diagnosis(es)- if any: Hx depression. Past Precipitating Factors- if any: Depression. - Include inpatient and outpatient treatment Treatment History: Not in outpatient tx. Inpatient at [facility] in the x 1 for depression. History of Suicide Attempts or Gestures No suicide attempts. Substance Abuse History: No tobacco, alcohol or drugs. Allergies: Coded Allergies: azithromycin (Intermediate, HIGH BP 05/27/16) carisoprodol (From Soma) (Intermediate, MAKES ME DRUNK 05/27/16) Home Med List: Nadolol 80 mg daily Lisinopril 10 mg daily Levothyroxine 100 mcg daily Remeron 30 mg qhs Ambient 10 mg qhs Singulair 10 mg qhs Pravachol 40 mg qPM Excedrin or Tylenol for sinus headaches Came of 10 years of Xanax in 12/15. 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 Substance Use: Father was alcoholic. Suicides: None. Social History Living Situation: Lives alone. Significant Relationships (family/friends): Son, 43, in [place]. Daughter, 41, in [place], with patient's 12 yo grandson. Education: Bachelors degree. Vocation/Occupation: Works "[employer]" at [employer] in [place]. Legal: No hx arrests. Healthly Behaviors Screening Tobacco Screening Tobacco Use from ED Docu: Never used - If tobacco counseling indicated - the following topics are required. - #1 Recognizing dangerous situations. - #2 Coping Skills. - #3 Basic information about quitting. Status of Tobacco Cessation Counseling: N/A B/C NO TOB USE Cessation Med Status: No Tobacco Use last 30d Alcohol Screening - ETOH screen POS if BAL >=80 or Audit-C>= M4/F3 Audit-C Score from Diag Assess: 0 Blood Alcohol Level: Laboratory Tests 06/05 0555 Toxicology Serum Alcohol (<10 MG/DL) < 10.0 Alcohol Use Screening Results: Neg per Audit C &/or BAL - If ETOH counseling indicated - the following topics are required. - #1 Express concern about the patient's - drinking at unhealthy levels, include informing - of national norms for moderate drinking: - men <= 14 drinks/week, max 4 drinks/occasion - women <= 7 drinks/week, max 3 drinks/occasion - #2 Providing feedback, including linking alcohol to - negative physical effects (liver injury, hypertension) - negative emotional effects (relationship problems and - depression) - negative occupational consequences (reduced work - performance) - #3 Advising the patient to abstain from alcohol or - to drink below national norms for moderate drinking - (as listed above). Status of ETOH Use Counseling: N/A B/C NO ETOH Use Metabolic Screening - Screen if on a Neuroleptic Medication - Metabolic screening should include: - Blood Pressure, BMI, Glucose or Hgb A1c, & a - Lipid profile from within the past 365 days. Metabolic Screening () Not Applicable, patient not on a neuroleptic. OR () Patient on a neuroleptic(s) . Enter below results for Glucose or Hemoglobin A1C, and lipid panel if obtained during the last 365 days. BMI: 18.000 Blood Pressure: 153/78 Laboratory Results (If applicable): Exam and Plan Mental Status Examination Ambulation Status: Ambulatory, sitting in a chair in NAD. Appearance: Thin WF in blue scrubs, wrapped in a blanket. Attitude towards examiner: Calm, polite and cooperative. Psychomotor activity: No psychomotor agitation/retardation. Behavior: WNL. Quality of speech: Speech normal in volume, rate and tone. Affect: Calm and blunted. Mood: "Kind of down." Sad: "definitely a or 10/09." Anxiety 6-10/09. Unsure if feeling hopeless. Feels helpless and worthless. Denies feeling guilty but states she is angry about the way life turns out. Angry with her siblings. Suicidal Ideation: Denies active and passive SI. Homicidal Ideation: Denies HI. Hallucinations: Denies AH and VH. Paranoid/Delusional Material: Denies PI and magical huggins. Difficulties with thought organization: None. Insight: Fair. Judgment: Fair. Orientation: Ox3. Cognition: Grossly intact. Memory Function: Grossly intact. Estimate of intellectual functioning: Average. Assets/Strengths Patient Identified Assets/Strengths: Very strong work ethic. Compassionate. People skills. Problem-solvinig. Impression/Plan Impression and Plan: The patient's low mood and neurovegetative symptoms may be due to recent ( confirmed) Influenza A. Hopefully symptoms will improve with sleep, hydration and nutrition. The patient is reticent about psychiatric medications. - Include all active medical diagnosis that require tx DSM 5 Diagnosis(es): Unspecified depression. R/o depression due to general medical condition (Influenza A). Hypothyroidism (hx Serjio's). Hypertension. Sinus headaches. Hypercholesterolemia. - Initial Tx Plan for Active Psych & Medical Conditions Treatment Plan: Monitor on the unit for mood, safety and neurovegetative symptoms. Family meeting with daughter will be important. Encourage rest, hydration and nutrition. Hold off on changing psychiatric medications. Anticipate likely discharge within the next 1-3 days to home with referral to an IOP or OPS. - Factors that would help patient function - in a less restrictive setting. Factors: Improved mood, energy, sleep and nutrition.
--- NOTE | 2016-06-06 15:37 | SOCIAL WORKER PROG NOTE PSYCH ---
Social Work Progress Note Progress Note SW met with patient for the first time today. Patient presented reserved with constricted affect and somewhat uneasy. Patient reported that she is unsure if she needs to be here and is concerned about work. Patient denies any suicidal thoughts at present but does report some concern for her recent depressive episode. Patient reports that she feels her depression stemmed from having the flu for a week. Patient reports that she had no thoughts or plans to hurt herself but felt that she was not acting like her normal self which is why she brought herself to the hospital. Patient reports working at [employer] and asked this freelance writer to fax a letter confirming her current hospitalization. Patients daughter, Concepción, was contacted and is coming in for a family meeting tomorrow at 1:30pm. Patient is aware that she will not be in the hospital for too many days and is preparing herself and her daughter for discharge sometime this week.
--- NOTE | 2016-06-06 15:38 | SOCIAL WORKER TX PLAN PSYCH ---
Treatment Plan - Please Document: - Evidence that there is ongoing collaboration between - the patient and the interdisciplinary team, - including the patient's active participation and - responsibility for engaging in the treatment regimen, - and that the treatment plan is individualized and - relevant to the patient's conditions. - Treatment plan should reflect documentation indicating - that all active therapeutic efforts are included. Strengths/Capabilities: supportive family, accepting help Physical Limitations (Interventions): none reported Patient Identified Trmt Goals: " I want to feel better overall and get back to work." Discharge Plan: IOP Problem/Goals #1 Problem #1: depression Goal (Short Term): Today I will attend 2 groups Today I will identify 2 stressors Today I will identify 2 positive supports Today I will work on recognizing 3 emotions I am feeling Goal (Jail): Be free of suicidal thoughts/attempts Develop 3 coping skills to deal with depression Identify 3 positive support systems to call in crisis Develop a crisis plan with 3 moffett people Identify 2 positive traits per week about myself Identify 2 things I have to look forward to Identify 2 positive people in my life and 1 thing I appreciate about them Interventions: Learn ways to manage depressive symptoms accordingly and identify positive supports to manage life stressors and mood fluctuations. Modalities: Encourage groups, education on depression, provide CBT treatment, family meeting. DSM5/PS Stressors/Medical Prob Diagnosis' (DSM 5, Stressors, Medical): Unspecified Depression F32.9 Current GAF: 25 Treatment Team - Responsibilities of members of the treatment team include: - Medication Management- MD or GUILLOTINE TRIMMER - Medication Administration and Monitoring- Nurse - Group Therapy- Occupational Therapist - 1:1 Therapy,Disch Planning,family involvement-Dry Transfer Man
[2016-06-06 16:11] VITALS: BP 150/79
[2016-06-06 19:42] VITALS: BP 130/75
--- NOTE | 2016-06-06 22:43 | NUR ---
PT IS COOPERATIVE WITH STAFF AND PEERS, AND COMPLIANT WITH UNIT RULES. PT REMAINS IN [place] MOST OF THE TIME, INTERACTING WELL WITH STAFF AND PEERS THROUGHOUT EVENING. PT APPEARS EXTREMELY LETHARGIC, COMPLAINING OF BEING TIRED WELL, THOUGH DOES NOT WANT TO FALL ASLEEP BECAUSE SHE EXPRESSES THAT ATTEMPTING TO FALL ASLEEP IS A STRESSOR. PT EVENTUALLY WENT TO PT ROOM DURING THE EVENING TO ATTEMPT TO REST LATER ON. MOOD IS STABLE, AFFECT IS EUTHYMIC TO FULL RANGE, COMMUNICATION IS NORMAL, AND APPETITE IS NORMAL. PT DENIES SI AT THIS TIME.
[2016-06-07 07:34] VITALS: BP 138/87
[2016-06-07 12:24] VITALS: BP 131/75
--- NOTE | 2016-06-07 12:57 | NUR ---
PT VISIBLE IN THE MILIEU TODAY. HER GOAL WAS TO COME UP WITH COPING SKILLS. PT HAS BEEN ATTENDING GROUPS TODAY, AND INTERACTS MINIMALLY WITH OTHERS. PT HAS BEEN COOPERATIVE HOWEVER, AND FOLLOWING THE RULES OF THE UNIT. PT DENIES HAVING THOUGHTS TO HURT HERSELF WHEN SHE WAS ASKED.
--- NOTE | 2016-06-07 14:13 | SOCIAL WORKER PROG NOTE PSYCH ---
Social Work Progress Note Progress Note Patient had family meeting today with her daughter, Concepción. Patient presented very withdrawn in the meeting with little eye contact and head down majority of the time. Patients daughter reported that patient appeared "off" and "down and out" this past week which was concerning to her. Patient had made a comment to her that there was "no point in anything anymore." When asked to elaborate what she meant by this patient reported that she saw no purpose in life, her life was over and she needed to move on. Patients daughter reports that patient appeared to be in a better state yesterday when she visited compared to today. She believes it appears her mother is experiencing a "rollercoaster of emotions, very up and down." Patient expressed great concern over sleep and states that she is having a difficult time sleeping at night which results in her feeling exhausted during the day. Patient inquired about med changes for sleep and this film writer will speak to her prescriber further about this. We discussed the discharge plan of IOP from the hospital and patients daughter was in total support of this plan where as patient was much more reluctant. Patient expressed fear of change and fear of getting better. With the support and encouragement of her daughter patient ultimately agreed to attend and try it out. Patient has intake tomorrow at 9:30AM. Patient denied any suicidal thoughts today but did report continued depression and fear of returning home.
[2016-06-07 15:45] VITALS: BP 130/78
--- NOTE | 2016-06-07 16:36 | CP SOUTH PROGRESS NOTE PSYCH ---
Psych (Inpt) Progress Note Progress Note Progress Note: I discussed this patient's progress to date, current mental status, treatment process in the context of the treatment plan, and discharge planning with staff/ team in the daily morning inpatient team meeting. I also met with the patient myself in individual session. A total of 25 minutes was spent with the patient with more than 50% spent in counseling and/or coordination of care. SUBJECTIVE: "I'm not finding a purpose in life. I feel depleted." OBJECTIVE: Current Medications Sig/Dylan Start time Last Medication Dose Route Stop Time Status Admin Acetaminophen 1,000 MG Q4 HRS NEEDED PRN 06/07 1430 AC 06/07 PO 1455 Acetaminophen 500 MG Q6P PRN 06/05 1430 DC 06/07 PO 1121 Al Hydroxide/Mg 30 ML Q6P PRN 06/05 1430 AC Hydroxide PO Gabapentin 300 MG AT BEDTIME 06/07 2200 AC PO Levothyroxine Sodium 0.125 MG DAILY AC 06/06 0700 AC 06/07 PO 0638 Lisinopril 10 MG DAILY 06/06 1000 AC 06/07 PO 0815 Magnesium Hydroxide 30 ML AT BEDTIME PRN 06/05 1430 AC PO Mirtazapine 30 MG AT BEDTIME 06/05 2200 AC 06/06 PO 2136 Montelukast Sodium 10 MG AT BEDTIME / 2200 AC 06/06 PO 2136 Nadolol 80 MG DAILY 06/06 1000 AC / PO 0815 Pravastatin Sodium 40 MG 1700 /06 1700 AC / PO 1608 Zolpidem Tartrate 10 MG AT BEDTIME 06/05 2200 AC / PO 2136 Vital Signs Date Time Temp Pulse Resp B/P Pulse O2 O2 Flow FiO2 Ox Delivery Rate 06/07 1948 96.9 77 142/79 / 1545 96.9 76 130/78 /08 1224 77 131/75 /08 0815 80 138/87 /08 0815 80 138/87 /08 0734 97.1 80 138/87 ASSESSMENT: Patient reports continuing depression and anxiety. Denies suicidal ideation today. States her primary care physician started her on mirtazapine as an appetite enhancer. Although she has been eating, states that food is "tasteless." States that headache and loss of appetite are related to sinus issues, had sinus surgery last year. States that major problem is insomnia, which is unrelieved with Ambien. We discussed discontinuing or lowering the dose of the Ambien, patient states that she is afraid to do that at this time. We discussed the benefits of attending IOP. Patient states that she will attend IOP, however is reticent to participate. I offered encouragement that IOP could be helpful. 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 Feels that her life no longer has purpose. Depression:8/10; Anxiety:8/10 (with 10 the worst.) Denies suicidal ideation, homicidal ideation, auditory hallucinations, visual hallucinations, paranoid ideation. Speech is well articulated, goal-directed, average in rate, volume and tone. Sad affect. A&Ox3. Calm, cooperative. The patient understands the risks/benefits/side effects of the medication and is agreeable to continue taking them. PLAN:Gabapentin tonight at bedtime for anxiety and to promote sleep. Anticipate discharge tomorrow. Continue with current management as patient is improving. Continue to provide support and encouragement.
[2016-06-07 19:48] VITALS: BP 142/79
--- NOTE | 2016-06-07 20:31 | NUR ---
PT IS CALM, COOPERATIVE WITH STAFF AND PEERS, AND COMPLIANT WITH UNIT RULES. PT REMIANS IN MILIEU, SLIGHTLY ISOLATIVE AND WITHDRAWN, SPENDING MOST OF THE TIME BY SELF. PT WILL INTERACT WHEN DIRECTLY ENGAGED. MOOD IS STABLE, AFFECT IS EUTHYMIC TO FULL RANGE, COMMUNICATION IS NORMAL AND ORGANIZED, AND APPETITE IS NORMAL. PT DENIES SI AT THIS TIME.
--- NOTE | 2016-06-08 05:41 | NUR ---
PT APPEARED TO SLEEP THRU THE NIGHT. EARLY DC AT 0930.
[2016-06-08 07:31] VITALS: BP 147/94
--- NOTE | 2016-06-08 08:09 | NUR ---
PT IS SCHDULED FOR D/C TO [facility] [place]. SHE AGREES TO FOLLOW UP WITH IOP AND HAS HER INTAKE TODAY AT 0930.SHE REPORTS FEELING A LITTLE SLEEPY FROM HER NEW MEDS BUT SHE DENIES ANY THOUGHTS OF SUICIDE OR SELF HARM. SHE IS LOOKING FORWARD TO GOING HOME. SHE IS IVEN EDUCATION R/T MANAGING DEPRESSION AND PREVENTING SUICIDE
--- NOTE | 2016-06-08 08:42 | CP SOUTH PROGRESS NOTE PSYCH ---
Psych (Inpt) Progress Note Progress Note Progress Note: I discussed this patient's progress to date, current mental status, treatment process in the context of the treatment plan, and discharge planning with staff/ team in the daily morning inpatient team meeting. I also met with the patient myself in individual session. A total of 30 minutes was spent with the patient with more than 50% spent in counseling and/or coordination of care. SUBJECTIVE: "I slept like a rock last night (after taking gabapentin)." OBJECTIVE: Current Medications Sig/Dylan Start time Last Medication Dose Route Stop Time Status Admin Acetaminophen 1,000 MG Q4 HRS NEEDED PRN 06/07 1430 AC 06/07 PO 2035 Acetaminophen 500 MG Q6P PRN 06/05 1430 DC 06/07 PO 1121 Al Hydroxide/Mg 30 ML Q6P PRN 06/05 1430 AC Hydroxide PO Gabapentin 300 MG AT BEDTIME 06/07 2200 AC 06/07 PO 2139 Levothyroxine Sodium 0.125 MG DAILY AC 06/06 0700 AC 06/08 PO 0647 Lisinopril 10 MG DAILY 06/06 1000 AC 06/07 PO 0815 Magnesium Hydroxide 30 ML AT BEDTIME PRN 06/05 1430 AC PO Mirtazapine 30 MG AT BEDTIME 06/05 2200 AC / PO 2139 Montelukast Sodium 10 MG AT BEDTIME 06/05 2200 AC / PO 2139 Nadolol 80 MG DAILY 06/06 1000 AC / PO 0815 Pravastatin Sodium 40 MG 1700 /06 1700 AC / PO 1608 Zolpidem Tartrate 10 MG AT BEDTIME 06/05 2200 AC 06/07 PO 2139 Vital Signs Date Time Temp Pulse Resp B/P Pulse O2 O2 Flow FiO2 Ox Delivery Rate 06/08 730 97.6 82 147/94 06/07 1948 96.9 77 142/79 / 1545 96.9 76 130/78 06/07 1224 77 131/75 ASSESSMENT: Patient reports some improvement to her depression and anxiety. Denies suicidal ideation. States of anxiety "I have it controlled." Tolerating her medications well. States she slept well last night, for the first time in a long time, after taking gabapentin 300 mg at bedtime. Reports waking up this morning feeling unsteady, however feels better at the time of this interview, which is approximately 8:30 in the morning. States she now feels safe and steady to walk. She believes at least some of this is due to to her chronic sinus problems, and Mnire's disease. She also appears to be in early recovery from influenza. We discussed the patient's use of Ambien. At this point the patient states that Ambien is no longer helping her for sleep. I suggested that she consider beginning to taper down and off of Ambien, starting with taking 5 mg at bedtime, and then following up with her primary care physician, or her prescriber at [facility]. Depression:5/10; Anxiety:7/10 (with 10 the worst.) Denies suicidal ideation, homicidal ideation, auditory hallucinations, visual hallucinations, paranoid ideation. Patient states and also believes that she will not kill herself. Reports sleeping well last night, after taking gabapentin at bedtime. Reports that her appetite is poor, which is her baseline. Nevertheless she tries to eat healthfully. Speech is well articulated, goal-directed, average in rate, volume and tone. Calm and cooperative. Logical. Alert and oriented 3. The patient understands the risks/benefits/side effects of the medication and is agreeable to continue taking them. PLAN: Discharge today to [facility] intake. Continue with current management as patient is improving. Continue to provide support and encouragement.
--- NOTE | 2016-06-08 08:48 | DISCHARGE SUMMARY REPORT-PSYCH ---
Visit Information Visit Dates/Diagnosis' Admission Date: 06/05/16 Discharge Date: 06/08/16 Reason for Admission: Depression in the context of recent, confirmed Influenza A. Psy Discharge Primary Diag: Unspecified depression. Psy Discharge Secondary Diag: Hypothyroidism (hx Serjio's); HTN: Sinus headaches; Sinus surgery;Hypercholesterole brionna. Hospital Course Significant Lab Findings: Lab BUN 31 mg/dL H 06/05/16 0555 BUN/Creatinine Ratio 34.4 % H 06/05/16 0555 Carbon Dioxide 32 mmol/L H 06/05/16 0555 Creatinine 0.9 mg/dL 06/05/16 0555 Estimated GFR > 60 ml/min 06/05/16 0555 TSH 11.800 uIU/mL H 06/05/16 0555 Plt Count 414 /CUMM H 06/05/16 0555 WBC 14.1 /CUMM H 06/05/16 0555 Course Complications: TSH was high at 11.800. Levothyroxine adjusted as per Dr. Pedroza. Please refer to his H&P for additional information. Consultations: Patient was seen for admission history and physical by Dr. Pedroza. Please refer to his note for additional information. Allergies: Coded Allergies: azithromycin (Intermediate, HIGH BP 05/27/16) carisoprodol (From Soma) (Intermediate, MAKES ME DRUNK 05/27/16) Hospital Course/TX Response: The patient was monitored on the unit for safety, and depression. She participated in multimodal treatments on the unit. Patient was continued on her medications of mirtazapine for depression, and also prescribed by her primary care physician as an appetite enhancer. She was medicated with gabapentin at bedtime for anxiety and as a sleep aid. She was continued on Ambien, which she has been taking on an outpatient basis for insomnia. The patient and I discussed the efficacy of Ambien, and that her current dose is in excess of prescribing guidelines. Patient was advised to decrease her Ambien dose to 5 mg at bedtime, and states she will consider discontinuing Ambien with her outpatient providers. A family meeting was held on the unit by social worker delinquency prevention Keiry Nelson LCSW. Please refer to her note for additional information. Today, the day of discharge, she reports some improvement to her depression and anxiety. Denies suicidal ideation. States of anxiety "I have it controlled." Tolerating her medications well. States she slept well last night, for the first time in a long time, after taking gabapentin 300 mg at bedtime. Reports waking up this morning feeling unsteady, however feels better at the time of this interview, which is approximately 8:30 in the morning. States she now feels safe and steady. She believes the feeling of being unsteady is due to to her chronic sinus problems, and Mnire's disease. She also appears to be in early recovery from influenza. Depression:5/10; Anxiety:7/10 (with 10 the worst.) Denies suicidal ideation, homicidal ideation, auditory hallucinations, visual hallucinations, paranoid ideation. Patient states and also believes that she will not kill herself. Reports sleeping well last night, after taking gabapentin at bedtime. Reports that her appetite is poor, which is her baseline. Nevertheless she tries to eat healthfully. Speech is well articulated, goal-directed, average in rate, volume and tone. Calm and cooperative. Logical. Alert and oriented 3. The patient understands the risks/benefits/side effects of the medication and is agreeable to continue taking them. Patient reports tolerating her medications well, without complaint. States she feels safe and ready for discharge. Discharge HBIPS - Tobacco Use Treatment Offered Post DC Medications Offered: NA-No Tob Use >30 days Post DC Tobacco Treatment Plan: NA-No Tobacco use >30days - EtOH/Drug Use D/O Treatment Offered Post DC Medications Offered: NA-No EtOH/Drug Use D/O Post DC EtOH/SubAbuse TX Plan: NA-No EtOH/Drug Use D/O Metabolic Screening - Screen if on a Neuroleptic Medication - Metabolic screening should include: - Blood Pressure, BMI, Glucose or Hgb A1c, & a - Lipid profile from within the past 365 days. Metabolic Screening ([x]) Not Applicable, patient not on a neuroleptic. OR () Patient on a neuroleptic(s) . Enter below results for Glucose or Hemoglobin A1C, and lipid panel if obtained during the last 365 days. BMI: 18.000 Blood Pressure: 147/94 Laboratory Results (If applicable): Discharge Instructions General Discharge Information Discharge Medications: Discharge Medications- (Dose, route, freq, indication): START taking these NEW Home Medications: Gabapentin Dose: ORAL, AT BEDTIME for Qty: 14 Printed (Gabapentin) 300 MG 300 Milligram ANXIETY AND SLEEP Refills: 0 CAPSULE Last Taken:06/07/16 Time:0 Levothyroxine Sodium Dose: ORAL, DAILY BEFORE Qty: 14 Printed (Synthroid) 125 MCG 0.125 BREAKFAST for THYROID Refills: 0 TABLET Milligram Last Taken:06/08/16 Time:0645 CONTINUE taking these Home Medications: Lisinopril (Prinivil) 10 Dose: ORAL, DAILY for HEART MG TABLET 1 Tablet Last Taken:06/08/16 Time:0900 Pravastatin Sodium Dose: ORAL, DAILY for (Pravachol) 40 MG TABLET 1 Tablet CHOLESTEROL Last Taken:06/07/16 Time:1600 Montelukast Sodium Dose: ORAL, DAILY for COPD (Singulair) 10 MG TABLET 1 Tablet Last Taken:06/07/16 Time:2129 Nadolol (Corgard) 80 MG Dose: ORAL, DAILY for HEART TABLET 1 Tablet Last Taken:06/08/16 Time:0900 Mirtazapine Dose: ORAL, Every night for (Mirtazapine) 30 MG 1 Tablet APPETITE TABLET Ibandronate Sodium Dose: ORAL, ONCE A MONTH for (Boniva) 150 MG TABLET 1 Tablet BONE on the same date with a full glass of water at least 30 minutes before first food or drink of the day; remain in an upright posi STOP taking these DISCONTINUED Home Medications: Zolpidem Tartrate (Ambien) 10 Dose: ORAL, Every night for SLEEP MG TABLET 1 Tablet Please start to taper down Ambien, using 5mg for a few nights. Please follow up with your doctor or IOP prescriber. Reason Stopped: Per Doctor Decision Levothyroxine Sodium Dose: ORAL, DAILY BEFORE BREAKFAST for (Levothyroxine Sodium) 100 MCG 1 Tablet THYROID TABLET Reason Stopped: Changed Dose Oseltamivir Phosphate Dose: ORAL, TWICE DAILY for FLU (Tamiflu) 75 MG CAPSULE 1 Capsule Reason Stopped: Pt Decision, not taking Your Preferred Pharmacy [facility]/pharmacy #[id number] [place] [id number] Multiple Neuroleptics: (x) Not Applicable OR Document below three failed attempts at monotherapy, or a plan to taper to monotherapy, or augmentation of Clozapine. () Patient's Diet: Regular Patient's Activity: No restrictions DC Disposition: Patient returning to her home. Recommendations: Follow-up at IOP. Follow-up with primary care to follow thyroid function. Take medications as prescribed. Referred To: [facility] Service Date: 06/08/16 [address], [place] [id number] Notes: [facility] intake today, 06/08/16, @9:30am. [address] [address]. [phone] Copies To: Dr. Merlin Chapa; [facility]
--- NOTE | 2016-06-08 09:01 | SOCIAL WORKER PROG NOTE PSYCH ---
Social Work Progress Note Progress Note Patient to discharge home today. Patient reports feeling nervous to go home today but denies any thoughts or plans to hurt herself. Patient has agreed to try IOP although initial and continued reluctance. Patient has intake today at 9 :30am and her daughter will pick her up after. Patient plans to return to work in the near future and has agreed to inform them of her availability based on her work schedule. Patient is still concerned about difficulty with sleep and has been encouraged to discuss this with her new prescriber in IOP. Patient has both her daughter and son for support and has agreed that if she starts to have negative thoughts that she can re-present to the ED at anytime.
[2016-06-08 09:03] VITALS: BP 147/94
[2016-06-08] MEDS ORDERED: GABAPENTIN300 M2 PO (09:11)
[2016-06-08] MEDS ORDERED: SYNTHROID125 MCG PO (09:12)
== END 2016-06-08 10:00 | DRG 881 ==
LOC: ENRESERVTM → ENRESERVDT → ERH 05:24 → CP SOUTH 14:06 → ERHI 14:06 → CP SOUTH 16:15
PROVIDERS: Pediatrics; ADMIT Psychiatry & Neurology Psychiatry
DX: F32.9 Major depressive disorder, single episode, unspecified (principal); I10 Essential (primary) hypertension; E03.9 Hypothyroidism, unspecified; G44.89 Other headache syndrome; E78.00 Pure hypercholesterolemia, unspecified
CPT/HCPCS: 80307; 81003; 93005; 93010; 96360; 96361; G0480

== ENCOUNTER 2017-05-31 11:57 | Observation (INO) | payer OTHER ==
[~2017-05-31] VITALS: Ht 162.6 cm; Wt 44.7 kg
[~2017-05-31 11:57] MED LIST changes: +BONIVA150 M1 PO; +BUPROPION XL150 MG PO; +EXCEDRIN EXTRA1 EACH PO; +FAMOTIDINE20 M1 PO; +GABAPENTIN300 M2 PO; +IBUPROFEN400 M1 PO; +IPRATROPIUM BRO30 M2 NASB; +LEVOFLOXACIN500 M1 PO; +LISINOPRIL10 M1 PO; +LOVENOX40 MG/0.1 SC; +MIRTAZAPINE15 M2 PO; +MIRTAZAPINE30 M2 PO; +SYNTHROID125 MCG PO; +TRAMADOL HCL50 M1 PO; +ZOLPIDEM TARTRA10 M1 PO
[2017-05-31 12:20] LABS: ABSOLUTE BASOPHIL COUNT 0 /CUMM (0.0-0.2); ABSOLUTE EOSINOPHIL COUNT 0.3 /CUMM (0.0-0.7); ABSOLUTE GRANULOCYTE CT 13.8 /CUMM (1.4-6.5); ABSOLUTE LYMPH COUNT 1.7 /CUMM (1.2-3.4); ABSOLUTE MONOCYTE COUNT 1.3 /CUMM (0.10-0.60); BASOPHIL % 0.1 % (0.0-2.0); EOSINOPHIL % 1.7 % (0-5); GRANULOCYTE % 80.7 % (42.2-75.2); MEAN CORPUSCULAR HGB 27.7 PG (27.0-31.0); MEAN CORPUSCULAR HGB CONC 32.7 G/DL (33.0-37.0); MEAN CORPUSCULAR VOLUME 84.7 FL (81.0-99.0); MEAN PLATELET VOLUME 6.9 FL (7.4-10.4); PLATELET COUNT 482 /CUMM (130-400); RBC DISTRIBUTION WIDTH 14.2 % (11.5-14.5); RED BLOOD CELL CT 4.83 /CUMM (4.20-5.40); WHITE BLOOD CELL COUNT 17.1 /CUMM (4.8-10.8)
--- NOTE | 2017-05-31 12:45 | ED SYNCOPE COMPLAINT ---
History of Present Illness General Chief Complaint: Syncope and Near-Syncope Stated Complaint: BIBA NEAR SYNCOPE Source: patient Exam Limitations: no limitations Vital Signs & Intake/Output Vital Signs & Intake/Output Vital Signs Date Time Temp Pulse Resp B/P B/P Pulse O2 O2 Flow FiO2 Mean Ox Delivery Rate 05/31 1553 97.6 65 16 144/88 96 Room Air 05/31 1409 74 141/76 05/31 1341 98.1 64 20 119/68 98 Room Air 05/31 1222 98 Room Air 05/31 1158 97.9 70 20 132/71 97 Room Air Allergies Coded Allergies: azithromycin (Intermediate, HIGH BP 11/01/16) carisoprodol (From Soma) (Intermediate, MAKES ME DRUNK 11/01/16) Reconcile Medications Bupropion HCl (Bupropion XL) 150 MG TAB.ER.24H 1 TAB PO DAILY MENTAL HEALTH ( Reported) Famotidine 20 MG TABLET 1 TAB PO BID GI (Reported) Gabapentin 300 MG CAPSULE 300 MG PO AT BEDTIME ANXIETY AND SLEEP Ibandronate Sodium (Boniva) 150 MG TABLET 1 TAB PO Q30D BONE (Reported) on the same date with a full glass of water at least 30 minutes before first food or drink of the day; remain in an upright posi Ipratropium [place] 21 MCG (0.03 %) SPRAY 2 SPRAY NASB BID RHINITIS (Reported ) Levothyroxine Sodium (Synthroid) 125 MCG TABLET 0.125 MG PO DAILY AC THYROID Nadolol (Corgard) 80 MG TABLET 1 TAB PO DAILY HEART (Reported) Olmesartan/Hydrochlorothiazide (Benicar Hct 20-12.5 MG Tablet) 20 MG-12.5 MG TABLET 1 TAB PO DAILY HEART (Reported) Pravastatin Sodium (Pravachol) 40 MG TABLET 1 TAB PO DAILY CHOLESTEROL ( Reported) Zolpidem Tartrate 10 MG TABLET 5 MG PO QPM SLEEP (Reported) Triage Note: PT ARRIVES VIA EMS. POSSIBLE SYNCOPY Triage Nurses Notes Reviewed? yes Timing: single episode today Precipitating Factors: FLUSHED, SLURRED SPEECH Episode Description: Patient suddenly became flushed had slurred speech woke up on the ground sitting Loss of Consciousness: brief (seconds) LMP (ages 10-50): post menopausal : No Patient currently breastfeeds: No HPI: 71-year-old female past medical history hypertension, COPD presents for evaluation after a possible syncopal episode. Patient states that she was at work standing when she suddenly felt very flushed. Her coworker stated that she had slurred speech. The next thing she remembers she was sitting on the ground. Patient states she did not hit her head. She was out for several seconds. She is able to stand up on her own and currently feels well. There is no chest pain shortness of breath lightheadedness dizziness or changes in vision. No hemoptysis or lower extremity edema. No other associated symptoms. She does note that she was recently treated for a Pseudomonas pneumonia with Cipro and prednisone. She stopped prednisone 3 days ago and Cipro was stopped yesterday. Patient denies any fevers no urinary symptoms no abdominal pain. (Ilan Dickey) Past History Travel History Traveled to [place] past 21 day No Medical History Any Pertinent Medical History? 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: hypertension, hyperlipidemia Respiratory: COPD Gastrointestinal: DIVERTICULITIS Hepatic: NONE Renal: NONE Musculoskeletal: OSTEOPOROSIS Psychiatric: anxiety, depression Endocrine: Serjio's thyroiditis Blood Disorders: anemia Cancer(s): R BREAST CA CHARGE NURSE/Reproductive: NONE History of MRSA: No History of VRE: No History of CDIFF: No Pneumonia Vaccine: 01/31/17 Influenza Vaccine: 02/15/17 Surgical History Surgical History: lumpectomy (R), Sinus surgery Psychosocial History Who do you live with Patient/Self Services at Home None What is your primary language Vincentian Tobacco Use: Never used Family History Hx Contributory? No (Ilan Dickey) Review of Systems Review of Systems Constitutional: Reports: no symptoms. EENTM: Reports: no symptoms. Respiratory: Reports: no symptoms. Cardiovascular: Reports: no symptoms. GI: Reports: no symptoms. Genitourinary: Reports: no symptoms. Musculoskeletal: Reports: no symptoms. Skin: Reports: no symptoms. Neurological/Psychological: Reports: see HPI (SYNCOPE). All Other Systems: Reviewed and Negative (Ilan Dickey) Physical Exam Physical Exam General Appearance: well developed/nourished, no apparent distress, alert, awake , thin Head: atraumatic, normal appearance Eyes: Bilateral: normal appearance, PERRL, EOMI. Ears, Nose, Throat: normal pharynx, normal ENT inspection, hearing grossly normal Neck: normal inspection, supple, full range of motion, NO jvd NO CAROTID BRUITS Respiratory: normal breath sounds, chest non-tender, no respiratory distress, lungs clear Cardiovascular: regular rate/rhythm, normal peripheral pulses Gastrointestinal: normal bowel sounds, soft, non-tender, no organomegaly Back: normal inspection, normal range of motion, no vertebral tenderness Extremities: normal inspection, normal range of motion, no edema Psychiatric: awake, alert, oriented x 3 Cranial Nerves: normal hearing, normal speech, PERRL Coordination/Gait: normal finger to nose, normal gait Motor/Sensory: no motor/sensory deficits Skin: intact, normal color, warm/dry Core Measures ACS in differential dx? No CVA/TIA Diagnosis: No Sepsis Present: No Sepsis Focused Exam Completed? No (Manuel NGUYEN,Ilan) Progress Differential Diagnosis: AMI, aortic valve, drug induced syncope, orthostatic syncope, other valvular disease, seizure, subarachnoid hem., TIA/CVA, vasodepressor syncope, ventricular tach/fib Diagnostic Imaging: Viewed by Me: Radiology Read, CT Scan. Discussed w/RAD: Radiology Read, CT Scan. Radiology Impression: PATIENT: OZZIE CLEARY PRESENT AGE: 71 PATIENT ACCOUNT NO: [id number] : 44 LOCATION: [facility] ORDERING PHYSICIAN: Ilan NGUYEN SERVICE DATE: 05/31/17 EXAM TYPE: CAT - CT HEAD WO IV CONTRAST EXAMINATION: CT HEAD WITHOUT CONTRAST CLINICAL INFORMATION: Syncope, weakness, vomiting. Slurred speech. Presumptive diagnosis of intracranial hemorrhage, mass, trauma. COMPARISON: CT scan of the head dated 02/19/2015. TECHNIQUE: Contiguous axial imaging was performed from the skull base to vertex without intravenous administration of contrast. DLP: 620.91 mGy- cm FINDINGS: Evaluation mildly limited by motion artifact. There is no evidence of acute intracranial hemorrhage or territorial infarction. No abnormal mass effect or midline shift is seen. [place] to white matter differentiation is well preserved. No extra-axial fluid collections are identified. The ventricles and sulci are mildly enlarged, consistent with involutional changes. Mild periventricular deep white matter low-attenuation is seen, consistent with ischemic small vessel disease. The osseous structures and soft tissues are normal. There is opacification of several of the ethmoid air cells and of the left sphenoid sinus and portions of the left mastoid sinus and left maxillary sinus. Frontal sinuses are underpneumatized. There is a convex left nasal septal deviation. IMPRESSION: 1. No acute intracranial pathology. 2. Findings consistent with ischemic small vessel disease. 3. Sinus disease. DICTATED BY: Starla Richey MD DATE/TIME DICTATED:05/31/171309 HIDE WASHER:MARILU DATE/TIME TRANSCRIBED:05/31/171309 CONFIDENTIAL, DO NOT COPY WITHOUT APPROPRIATE AUTHORIZATION. CXR Impression: PATIENT: OZZIE CLEARY PRESENT AGE: 71 PATIENT ACCOUNT NO: [id number] : 44 LOCATION: [facility] ORDERING PHYSICIAN: Ilan NGUYEN SERVICE DATE: 05/31/17 EXAM TYPE: RAD - XRY- PORTABLE CHEST XRAY EXAMINATION: XR PORTABLE CHEST CLINICAL INFORMATION: Syncope. Presumptive diagnosis of pneumonia, CHF. COMPARISON: Chest x-rays dated 03/12/2017 and 06/05/2016. TECHNIQUE: Portable AP semierect view of the chest was obtained. FINDINGS: The cardiomediastinal silhouette is within normal limits in size. Lungs bilaterally are symmetrically hyperinflated and again demonstrate diffusely increased reticular opacities, most prominent in the lung apices. Appearance is overall unchanged from prior studies and is suspicious for diffuse underlying interstitial lung disease. No definite new superimposed focal process appreciated. No focal consolidation, effusion or pneumothorax is seen. Bony structures are unremarkable. IMPRESSION: Hyperinflated lungs with chronic diffuse increased reticular opacities, suggestive of obstructive lung disease and associated interstitial changes. Findings are similar to older exams. No new superimposed acute process appreciated. Close clinical correlation and follow-up recommended. DICTATED BY: Starla Richey MD DATE/TIME DICTATED:05/31/171252 HIDE WASHER:MARILU DATE/TIME TRANSCRIBED:05/31/171252 CONFIDENTIAL, DO NOT COPY WITHOUT APPROPRIATE AUTHORIZATION. Initial ED EKG: normal sinus rhythm, no ST T wave changes (Ilan Dickey) Plan of Care: Orders Procedure Date/time Status LACTIC ACID 05/31 1922 Active LACTIC ACID 05/31 1622 Complete Misc Message 05/31 161 Active ED Holding Orders 05/31 161 Active Admit to inpatient 05/31 1615 Active Vital Signs 05/31 161 Active Code Status 05/31 161 Active Add-on Test (ER Only) 05/31 1543 Active MISTAKE 05/31 1250 Active URINALYSIS 05/31 1159 Complete TROPONIN LEVEL 05/31 1159 Complete COMPREHENSIVE METABOLIC PANEL 05/31 1159 Complete CBC WITHOUT DIFFERENTIAL 05/31 1159 Complete EKG 05/31 1159 Active Laboratory Tests 05/31/17 1620: Lactic Acid 1.0 05/31/17 1525: Urine Color YEL, Urine Clarity CLEAR, Urine pH 6.5, Ur Specific [place] 1.015, Urine Protein NEG, Urine Ketones NEG, Urine Nitrite NEG, Urine Bilirubin NEG, Urine Urobilinogen 0.2, Ur Leukocyte Esterase NEG, Ur Microscopic EXAM NOT REQUIRED, Urine Hemoglobin NEG, Urine Glucose NEG 05/31/17 1210: Anion Gap 14, Estimated GFR 55 L, BUN/Creatinine Ratio 38.0 H, Glucose 99, Calcium 10.0, Total Bilirubin 0.5, AST 21, ALT 21, Alkaline Phosphatase 54, Troponin I < 0.01, Total Protein 7.3, Albumin 3.9, Globulin 3.4, Albumin/ Globulin Ratio 1.1, CBC w Diff MAN DIFF ORDERED, RBC 4.83, MCV 84.7, MCH 27.7, MCHC 32.7 L, RDW 14.2, MPV 6.9 L, Gran % 80.7 H, Lymphocytes % 10.0 L, Monocytes % 7.5, Eosinophils % 1.7, Basophils % 0.1, Absolute Granulocytes 13.8 H, Absolute Lymphocytes 1.7, Absolute Monocytes 1.3 H, Absolute Eosinophils 0.3 , Absolute Basophils 0, Platelet Estimate ADEQUATE, Normocytic RBCs VERIFIED, Normochromic RBCs VERIFIED PT seen and evaluated. She had a possible syncopal episode. Due to the slurred speech component TIA also needs to be considered. Patient is currently feeling well and has no concerns. She denies any chest pain or shortness of breath. EKG is stable without ST or T-wave changes. Troponin is negative. CT scan of the brain does not blood cell count of 17.1 however this is decreased from 18, 000 a few days ago. She was recently treated with prednisone. Patient will be admitted to the hospital for observation after a syncopal episode and also to rule out a possible TIA. Patient will require telemetry, serial labs, serial EKGs, echocardiogram, carotid ultrasound, cardiology consult, neurology consult, and monitoring of vital signs. Case discussed with Dr. Mondragon he agrees. (Ilan Dickey) (Alanna ESPINOSA,Ming Smith) Departure Departure Disposition: STILL A PATIENT Condition: Stable Clinical Impression Primary Impression: Syncope Qualifiers: Syncope type: unspecified Qualified Code: R55 - Syncope and collapse Referrals: Merlin Chapa MD (PCP/Family) Departure Forms: Customer Survey General Discharge Information Observation Note Spoke With: Evon Bustos MD Physician Advisor Notified: BRETT ESPINOSA,KIRIT [address]au[address] Place Patient In: Non-ED OBS Care Area Rationale for Observation: My rational for observation is as follows [telemetry, serial EKGs, serial labs, cardiology consult, echocardiogram, medication adjustment, carotid ultrasound neurology consult]. (Ilan Dickey) PA/LUMBER KILN OPERATOR Co-Sign Statement Statement: ED Attending supervision documentation- [X] I saw and evaluated the patient. I have also reviewed all the pertinent lab results and diagnostic results. I agree with the findings and the plan of care as documented in the PA's/LUMBER KILN OPERATOR's documentation. Patient presents for evaluation of a syncopal episode while at work. Physical examination reveals a nonfocal neurologic exam. [] I have reviewed the ED Record and agree with the PA's/LUMBER KILN OPERATOR's documentation. [] Additions or exceptions (if any) to the PAs/LUMBER KILN OPERATOR's note and plan are summarized below: [] (Alanna ESPINOSA,Ming Smith) ED Attending Observation Initial Observation Note: I have seen and personally examined OZZIE CLEARY on 05/31/17 at 1612. I agree with the current emergency department documentation. The disposition (admission or discharge) is uncertain at this time, she needs a period of observation for the following reason(s): The ED Nurse caring for this patient has been personally informed as to what the patient is being observed for. (Ilan Dickey)
[2017-05-31] MEDS ORDERED: BENICAR HCT 201 EACH PO (12:51)
--- NOTE | 2017-05-31 12:59 | RADIOLOGY REPORT ---
EXAMINATION: XR PORTABLE CHEST CLINICAL INFORMATION: Syncope. Presumptive diagnosis of pneumonia, CHF. COMPARISON: Chest x-rays dated 03/12/2017 and 06/05/2016. TECHNIQUE: Portable AP semierect view of the chest was obtained. FINDINGS: The cardiomediastinal silhouette is within normal limits in size. Lungs bilaterally are symmetrically hyperinflated and again demonstrate diffusely increased reticular opacities, most prominent in the lung apices. Appearance is overall unchanged from prior studies and is suspicious for diffuse underlying interstitial lung disease. No definite new superimposed focal process appreciated. No focal consolidation, effusion or pneumothorax is seen. Bony structures are unremarkable. IMPRESSION: Hyperinflated lungs with chronic diffuse increased reticular opacities, suggestive of obstructive lung disease and associated interstitial changes. Findings are similar to older exams. No new superimposed acute process appreciated. Close clinical correlation and follow-up recommended.
--- NOTE | 2017-05-31 13:36 | CT SCAN REPORT ---
EXAMINATION: CT HEAD WITHOUT CONTRAST CLINICAL INFORMATION: Syncope, weakness, vomiting. Slurred speech. Presumptive diagnosis of intracranial hemorrhage, mass, trauma. COMPARISON: CT scan of the head dated 02/19/2015. TECHNIQUE: Contiguous axial imaging was performed from the skull base to vertex without intravenous administration of contrast. DLP: 620.91 mGy-cm FINDINGS: Evaluation mildly limited by motion artifact. There is no evidence of acute intracranial hemorrhage or territorial infarction. No abnormal mass effect or midline shift is seen. [place] to white matter differentiation is well preserved. No extra-axial fluid collections are identified. The ventricles and sulci are mildly enlarged, consistent with involutional changes. Mild periventricular deep white matter low-attenuation is seen, consistent with ischemic small vessel disease. The osseous structures and soft tissues are normal. There is opacification of several of the ethmoid air cells and of the left sphenoid sinus and portions of the left mastoid sinus and left maxillary sinus. Frontal sinuses are underpneumatized. There is a convex left nasal septal deviation. IMPRESSION: 1. No acute intracranial pathology. 2. Findings consistent with ischemic small vessel disease. 3. Sinus disease.
--- NOTE | 2017-05-31 16:31 | History & Physical ---
Ryan Lucio 05/31/17 1631: General Information and HPI History of Present Illness: Ms. Szymanski is a 71 yo f with a PMH of hypothyroidism, HTN, HLD, migraines, osteoporosis, COPD, MAC infection, breast nodules (biopsies negative) BIBA to the ED for slurred speech and near syncope this morning. Patient reports today was her first day back to work ([employer]) since 03/2017 after a left hip replacement (rehab for 1 week). She went to work this morning around 8 AM and did her usual routine, she took a call around 11 AM and suddenly began to lose focus and only was able to type 2 letters on the computer before stopping. She felt a "flutter" in her chest. She stated she "could feel something going on". She became hot and flushed and subsequently had visual changes. Her unclaimed property manager who was nearby reported to her that she was leaning forward over the counter at a 30 herself on the floor. She leaned her on her side after which she vomited once the applesauce she ate that morning. She is unsure how long the event lasted but she feels as though it lasted seconds to a minute. She reports she is unable to put weight on and she has been dealing with chronic weight loss. She also does not keep herself hydrated and only "sips" water. She had a previous episode 2 years ago and was worked up for a TIA/CVA and was told at that time her symptoms were due to her blood pressure and dehydration. She also reports once she arrived to the ED and went to use the toilet she found fecal contents inside her garments. She is unsure at what point she lost her bowels. Yesterday she had a tension headache and took Excedrin without relief. She denies fever, chills, CROCKETT, trauma, paresthesias, paralysis, lightheadedness, CP, noncompliance with medication, jerking movements, urinary incontinence, tinnitus , edema, orthopnea. 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 Exam & Diagnostic Data Last 24 Hrs of Vital Signs/I&O Vital Signs Date Time Temp Pulse Resp B/P B/P Pulse O2 O2 Flow FiO2 Mean Ox Delivery Rate 05/31 1553 97.6 65 16 144/88 96 Room Air 05/31 1409 74 141/76 05/31 1341 98.1 64 20 119/68 98 Room Air 05/31 1222 98 Room Air 05/31 1158 97.9 70 20 132/71 97 Room Air Intake & Output 05/31 1600 05/31 0800 05/31 0000 Intake Total 0 Output Total Balance 0 Intake, Oral 0 Physical Exam General Appearance Alert, Oriented X3, Cooperative, No Acute Distress HEENT Atraumatic, PERRLA, EOMI, Mucous Membr. moist/pink Neck Supple, No JVD, No thryomegaly, Mild BL carotid bruit Lymphatic No LAD Cardiovascular Regular Rate, Normal S1, Normal S2, No Murmurs Lungs Clear to Auscultation, Normal Air Movement Abdomen Normal Bowel Sounds, Soft, No Tenderness Neurological Normal Speech, Strength at 5/5 X4 Ext, Normal Tone, Sensation Intact, Cranial Nerves 3-12 NL Extremities No Edema, Normal Pulses, No Tenderness/Swelling Last 24 Hrs of Labs/Eddi: Laboratory Tests 05/31/17 1620: Lactic Acid 1.0 05/31/17 1525: Urine Color YEL, Urine Clarity CLEAR, Urine pH 6.5, Ur Specific [place] 1.015, Urine Protein NEG, Urine Ketones NEG, Urine Nitrite NEG, Urine Bilirubin NEG, Urine Urobilinogen 0.2, Ur Leukocyte Esterase NEG, Ur Microscopic EXAM NOT REQUIRED, Urine Hemoglobin NEG, Urine Glucose NEG 05/31/17 1210: Anion Gap 14, Estimated GFR 55 L, BUN/Creatinine Ratio 38.0 H, Glucose 99, Calcium 10.0, Total Bilirubin 0.5, AST 21, ALT 21, Alkaline Phosphatase 54, Troponin I < 0.01, Total Protein 7.3, Albumin 3.9, Globulin 3.4, Albumin/ Globulin Ratio 1.1, CBC w Diff MAN DIFF ORDERED, RBC 4.83, MCV 84.7, MCH 27.7, MCHC 32.7 L, RDW 14.2, MPV 6.9 L, Gran % 80.7 H, Lymphocytes % 10.0 L, Monocytes % 7.5, Eosinophils % 1.7, Basophils % 0.1, Absolute Granulocytes 13.8 H, Absolute Lymphocytes 1.7, Absolute Monocytes 1.3 H, Absolute Eosinophils 0.3 , Absolute Basophils 0, Platelet Estimate ADEQUATE, Normocytic RBCs VERIFIED, Normochromic RBCs VERIFIED Diagnostic Data EKG Results 12:11 NSR, ? incomplete RBBB (V2) HR 71 QTc 422 CXR Results IMPRESSION: Hyperinflated lungs with chronic diffuse increased reticular opacities, suggestive of obstructive lung disease and associated interstitial changes. Findings are similar to older exams. No new superimposed acute process appreciated. Close clinical correlation and follow-up recommended. Other Results CT HEAD WO IV CONTRAST FINDINGS: Evaluation mildly limited by motion artifact. There is no evidence of acute intracranial hemorrhage or territorial infarction. No abnormal mass effect or midline shift is seen. [place] to white matter differentiation is well preserved. No extra-axial fluid collections are identified. The ventricles and sulci are mildly enlarged, consistent with involutional changes. Mild periventricular deep white matter low-attenuation is seen, consistent with ischemic small vessel disease. The osseous structures and soft tissues are normal. There is opacification of several of the ethmoid air cells and of the left sphenoid sinus and portions of the left mastoid sinus and left maxillary sinus. Frontal sinuses are underpneumatized. There is a convex left nasal septal deviation. IMPRESSION: 1. No acute intracranial pathology. 2. Findings consistent with ischemic small vessel disease. 3. Sinus disease. Assessment/Plan Assessment: Ms. Szymanski is a 71 yo f with a PMH of hypothyroidism, HTN, HLD, migraines, osteoporosis, COPD, MAC infection, breast nodules (biopsies negative) BIBA to the ED for slurred speech and near syncope this morning. Syncope/near syncope likely secondary to TIA versus dehydration CT negative for any acute changes. The fact that she had mild BL carotid bruit with spontaneous resolution of her slurred speech TIA is high on differentials. Her orthostatics were negative. She passed bed side swallow. * Admit to 23 hour observation * Cardiology consult * Neurology consult * Serial TROP/ECG to r/o ACS * Carotid US to r/o > 50% carotid stenosis * ECHO to r/o SHD and/or RWMA * MRI brain to r/o CVA * NS IVF 1 bag * Stat ASA 81 mg * Resume home med high dose statin * Lipid panel, TSH/T4 Leukocytosis most likely reactive * CBC daily to monitor white count As Ranked By This Provider Problem List: 1. Syncope Qualifiers Syncope type: unspecified Qualified Code: R55 - Syncope and collapse 2. Near syncope Core Measures/Misc (12/17) Acute Coronary Syndrome ACS Diagnosis: No Congestive Heart Failure Congestive Heart Failure Diagnosis No Cerebrovascular Accident CVA/TIA Diagnosis: No VTE (View Protocol) VTE Risk Factors Age>40 No Mechanical VTE Prophylaxis d/t N/A MechProphylax Ordered No VTE Pharm Prophylaxis d/t NA PharmProphylax ordered Sepsis (View protocol) Sepsis Present: No [facility] 1752: Resident Review Statement Resident Statement: examined this patient, discussed with environmental engineering intern, agreed with environmental engineering intern, discussed with family Other Findings: Ms Szymanski is a 71 year-old woman with a past medical history of migraine, HTN, HLD, COPD, osteoporosis, diverticulitis, MAC infection, R breast cancer status post lumpectomy, left hip fracture status post repair in March 2017, anemia and hypothyroidism brought to the ER on account of syncopal episode according this morning. She had recently been released from short-term rehabilitation last week following hospitalization for Pseudomonas pneumonia 2 weeks ago. She was in her usual state of health and admitted feeling fine and return to her walk at the [facility] this morning. She had her regular breakfast with a glass of orange juice and started work at 8 AM. She was on her feet from 8 AM until around 11 AM and suddenly became acutely confused while she was typing on a computer. She then felt facial flushing, and "fogginess", and some palpitations while speaking to a client over the phone. She does not recall any other details, but a coworker stated that she subsequently leaned forward on the desk and had slurred speech before lowering herself to the ground in the sitting position. The coworker assisted her to lie on her side and she vomited her recently ingested meal. She abruptly became more conscious after the vomiting and the entire episode lasted about 1 minute. There was no tongue biting, tonic-clonic seizure activity, headache, weakness, numbness or tingling of any part of the body. She had an episode of fecal incontinence during this episode that she noted later on. The patient states that she has had similar sensation 2 years ago that was treated in [facility] with the possibility of a TIA being entertained but she was found to be dehydrated and she improved after IV hydration. She was subsequently brought to the ER by ambulance. Vital signs on presentation showed a temperature of 97.9 F, 70 bpm, RR 20, BP 132/71 mmhg, PO2 97% on Room Air. Physical exam at presentation: General appearance: Alert, Oriented X3, Cooperative, No Acute Distress HEENT: Atraumatic, PERRLA, EOMI, Mucous Membr. moist/pink Neck: Supple, No JVD, No thryomegaly, Bilateral carotid bruit R>L Lymphatic: No LAD Cardiovascular: Regular Rate, Normal S1, Normal S2, No Murmurs Lungs: Clear to Auscultation, Normal Air Movement Abdomen: Normal Bowel Sounds, Soft, No Tenderness Neurological: Normal Speech, Strength at 5/5 X4 Ext, Normal Tone, Sensation Intact, Cranial Nerves 3-12 NL, Brisk deep tendon reflexes bila Extremities No Edema, Normal Pulses, No Tenderness/Swelling Patient passed bedside swallow evaluation. Labs significant for CBC with WBC 17.1, Hb 13.4, Hct 41, platelet 482. Chemistries show Na 135, K 4.1, CO2 31, Anion gap 14, BUN 38, creat 1. Troponin <0.01. Urinalysis unremarkable. Head CT: no acute intracranial abnormality. Chest X-ray: Obstructive lung disease. No new superimposed acute process appreciated. Problem list 1. TIA 2. Syncope probably secondary to dehydration 3. Hypertension 4. Hypothyroidism 5. History of COPD 6. History of depression and anxiety Plan * Place in observation in telemetry floor * Start aspirin 81 mg daily and atorvastatin 40 mg daily * Orthostatic vital signs were negative * Normal saline 1 L @ 75 cc/hr * Carotid ultrasound * MRI brain in the AM * Lipid panel in the AM * Neurology consult * PT consult/OT consult * Patient passed a bedside swallow evaluation * Speech and swallow evaluation in the AM * Serial EKG and troponins to rule out an acute coronary syndrome * Echocardiogram in the AM to evaluate for valvular abnormalities * Cardiology consult in the AM * Add on TSH and Free T4 * Continue synthroid 0.125 mg daily * Repeat CBC in the AM to monitor leukocytosis * Continue home medications for hypertension: nadolol, Losartan substituted for Olmesartan, hydrochlorothiazide, depression: bupropion, anxiety: ambien and gabapentin DVT prophylaxis with SC Lovenox 40 mg daily Code status is full code Akash ESPINOSA,Evon 06/04/17 1113: General Information and HPI Allergies/Medications Home Med list Apixaban (Eliquis) 5 MG TABLET 1 TAB PO BID CVA Aspirin (Ecotrin*) 81 MG TABLET.DR 81 MG PO DAILY heart . Bupropion HCl (Bupropion XL) 150 MG TAB.ER.24H 1 TAB PO DAILY MENTAL HEALTH ( Reported) Famotidine 20 MG TABLET 1 TAB PO BID GI (Reported) Gabapentin 300 MG CAPSULE 300 MG PO AT BEDTIME ANXIETY AND SLEEP Ibandronate Sodium (Boniva) 150 MG TABLET 1 TAB PO Q30D BONE (Reported) on the same date with a full glass of water at least 30 minutes before first food or drink of the day; remain in an upright posi Ipratropium [place] 21 MCG (0.03 %) SPRAY 2 SPRAY NASB BID RHINITIS (Reported ) Levothyroxine Sodium (Synthroid) 125 MCG TABLET 0.125 MG PO DAILY AC THYROID Nadolol (Corgard) 80 MG TABLET 1 TAB PO DAILY HEART (Reported) Olmesartan/Hydrochlorothiazide (Benicar Hct 20-12.5 MG Tablet) 20 MG-12.5 MG TABLET 1 TAB PO DAILY HEART (Reported) Pravastatin Sodium (Pravachol) 40 MG TABLET 1 TAB PO DAILY CHOLESTEROL ( Reported) Zolpidem Tartrate 10 MG TABLET 5 MG PO QPM SLEEP (Reported) Attending MD Review Statement Attending Statement Attending MD Statement: examined this patient, discuss w/resident/PA/BOTTOMING ROOM INSPECTOR, agreed w/resident/PA/BOTTOMING ROOM INSPECTOR, discussed with family, reviewed EMR data (avail), discussed with nursing, discussed with case mgmt, reviewed images, amended to note Attending Assessment/Plan: See my addnedum.
--- NOTE | 2017-05-31 19:03 | PN- Att Addend ---
Attending Addendum Attending Brief Note 71 y/o F with pmh sig for hypothyroidism, HTN, HLD, migraines, osteoporosis, COPD, MAC infection, breast nodules, recent left hip fracture s/p repair 3 months ago BIBA after having a syncopal episode. Today was the first day patient reports that she was back to work. She started hurting around 8:00 at work and was doing her regular chores. She was helping somebody eventually started to feel 14 and could not maintain her focus. She was noted bilateral the coworkers that she was leaning on the [place] red 30 and found to have a slurred speech. Next thing she remembers is sitting on the ground. She doesn't remember if she fell or she was lowered to the ground. She was laid on her side and then afterwards she vomited. In the emergency room patient was also found to have lost her bowel control and was soiled. Patient denies any preceding headache, blurriness of vision, chest pain. She just didn't feel right and was feeling somewhat flushed and foggy. Her vital signs are stable and she is not orthostatic. About 2 years ago she had a similar episode and she was admitted to [facility] with possibility of TIA but found to have dehydration and improved after IV hydration. She does admit to eating and drinking normally. Vital Signs Date Time Temp Pulse Resp B/P B/P Pulse O2 O2 Flow FiO2 Mean Ox Delivery Rate 05/31 1553 97.6 65 16 144/88 96 Room Air 05/31 1409 74 141/76 05/31 1341 98.1 64 20 119/68 98 Room Air 05/31 1222 98 Room Air 05/31 1158 97.9 70 20 132/71 97 Room Air on exam; aox3, nad. cv; s1,s2, rrr resp; clear abd; soft, nt, bs+ ext; no edema. neuro; non focal. Laboratory Tests 05/31 05/31 05/31 1827 1620 1525 Chemistry Lactic Acid (0.7 - 2.1 mmol/L) 1.0 Troponin I Pending Urines Urine Color (YEL,AMB,STR) YEL Urine Clarity (CLEAR) CLEAR Urine pH (5.0 - 8.0) 6.5 Ur Specific [place] (1.001 - 1.035) 1.015 Urine Protein (NEG,<30 MG/DL) NEG Urine Ketones (NEG) NEG Urine Nitrite (NEG) NEG Urine Bilirubin (NEG) NEG Urine Urobilinogen (0.1 - 1.0 EU/dl) 0.2 Ur Leukocyte Esterase (NEG) NEG Ur Microscopic EXAM NOT REQUIRED Urine Hemoglobin (NEG) NEG Urine Glucose (N MG/DL) NEG 05/31 1210 Chemistry Sodium (137 - 145 mmol/L) 135 L Potassium (3.5 - 5.1 mmol/L) 4.1 Chloride (98 - 107 mmol/L) 90 L Carbon Dioxide (22 - 30 mmol/L) 31 H Anion Gap (5 - 16) 14 BUN (7 - 17 mg/dL) 38 H Creatinine (0.5 - 1.0 mg/dL) 1.0 Estimated GFR (>60 ml/min) 55 L BUN/Creatinine Ratio (7 - 25 %) 38.0 H Glucose (65 - 99 mg/dL) 99 Calcium (8.4 - 10.2 mg/dL) 10.0 Total Bilirubin (0.2 - 1.3 mg/dL) 0.5 AST (14 - 36 U/L) 21 ALT (9 - 52 U/L) 21 Alkaline Phosphatase (<127 U/L) 54 Troponin I (< 0.11 ng/ml) < 0.01 Total Protein (6.3 - 8.2 g/dL) 7.3 Albumin (3.5 - 5.0 g/dL) 3.9 Globulin (1.9 - 4.2 gm/dL) 3.4 Albumin/Globulin Ratio (1.1 - 2.2 %) 1.1 Hematology CBC w Diff MAN DIFF ORDERED WBC (4.8 - 10.8 /CUMM) 17.1 H RBC (4.20 - 5.40 /CUMM) 4.83 Hgb (12.0 - 16.0 G/DL) 13.4 Hct (37 - 47 %) 41.0 MCV (81.0 - 99.0 FL) 84.7 MCH (27.0 - 31.0 PG) 27.7 MCHC (33.0 - 37.0 G/DL) 32.7 L RDW (11.5 - 14.5 %) 14.2 Plt Count (130 - 400 /CUMM) 482 H MPV (7.4 - 10.4 FL) 6.9 L Gran % (42.2 - 75.2 %) 80.7 H Lymphocytes % (20.5 - 51.1 %) 10.0 L Monocytes % (1.7 - 9.3 %) 7.5 Eosinophils % (0 - 5 %) 1.7 Basophils % (0.0 - 2.0 %) 0.1 Absolute Granulocytes (1.4 - 6.5 /CUMM) 13.8 H Absolute Lymphocytes (1.2 - 3.4 /CUMM) 1.7 Absolute Monocytes (0.10 - 0.60 /CUMM) 1.3 H Absolute Eosinophils (0.0 - 0.7 /CUMM) 0.3 Absolute Basophils (0.0 - 0.2 /CUMM) 0 Platelet Estimate (ADEQUATE) ADEQUATE Normocytic RBCs VERIFIED Normochromic RBCs VERIFIED EKG shows sinus rhythm. CT head; IMPRESSION: 1. No acute intracranial pathology. 2. Findings consistent with ischemic small vessel disease. 3. Sinus disease. CXR: IMPRESSION: Hyperinflated lungs with chronic diffuse increased reticular opacities, suggestive of obstructive lung disease and associated interstitial changes. Findings are similar to older exams. No new superimposed acute process appreciated. Close clinical correlation and follow-up recommended. A/P; 71 y/o F with pmh sig for hypothyroidism, HTN, HLD, migraines, osteoporosis , COPD, MAC infection, breast nodules, recent left hip fracture s/p repair 3 months ago will be placed on telemetry observation with syncopal episode. There is a possibility of TIA also with the slurred speech. Patient will be on telemetry observation. She will be monitored on telemetry. Will get carotid Doppler, echocardiogram and MRI of the brain. Cardiology will be consulted. Please trend her troponins and consult cardiology. Patient can receive gentle IV hydration. Please add a baby aspirin and statin. Patient should have a swallow eval. Patient should be seen by PT/OT/speech therapist. Continue the rest of her home medications. Pharmacologic DVT prophylaxis. Full code. Discussed with her daughter at bedside.
[2017-05-31 20:40] VITALS: BP 152/78
[2017-06-01 07:00] VITALS: BP 122/84
--- NOTE | 2017-06-01 07:16 | PN- Housestaff ---
Assessment/Plan Assessment: Ms. Szymanski is a 71 yo f with a PMH of hypothyroidism, HTN, HLD, migraines, osteoporosis, COPD, MAC infection, breast nodules (biopsies negative) BIBA to the ED for slurred speech and near syncope this morning. Syncope/near syncope likely secondary to TIA versus dehydration CT negative for any acute changes. The fact that she had mild BL carotid bruit with spontaneous resolution of her slurred speech TIA is high on differentials. Her orthostatics were negative. She passed bed side swallow. * Admit to 23 hour observation * Cardiology consult * Neurology consult * Serial TROP/ECG to r/o ACS * Carotid US to r/o > 50% carotid stenosis * ECHO to r/o SHD and/or RWMA * MRI brain to r/o CVA * NS IVF 1 bag * Stat ASA 81 mg * Resume home med high dose statin * Lipid panel, TSH/T4 Leukocytosis most likely reactive * CBC daily to monitor white co
--- NOTE | 2017-06-01 07:18 | PN-Observation ---
See Addendum Observation Note Observation Note _ I have personally examined OZZIE SZYMANSKI. her disposition is uncertain at this time. Before a determination can be made, she requires continued observation for the following reasons syncope. Assessment/Plan Medical Assessment: Ms. Szymanski is a 71 yo f with a PMH of hypothyroidism, HTN, HLD, migraines, osteoporosis, COPD, MAC infection, breast nodules (biopsies negative) BIBA to the ED for slurred speech and near syncope this morning. Syncope/near syncope likely secondary to TIA versus dehydration CT negative for any acute changes. The fact that she had mild BL carotid bruit with spontaneous resolution of her slurred speech TIA is high on differentials. Her orthostatics were negative. She passed bed side swallow. * Continue 23 hour observation * Cardiology recommendations appreciated * Neurology recommendations appreciated * Serial TROP/ECG neg for ACS * Carotid US reported < 50% carotid stenosis * ECHO to r/o SHD and/or RWMA * MRI brain neg for CVA * NS IVF 1 bag * continue ASA 81 mg * Resume home med high dose statin * Stable for discharge today if Neuro and Cardio clears her Leukocytosis most likely reactive * CBC daily to monitor white co Problem List: 1. Syncope Qualifiers Syncope type: unspecified Qualified Code: R55 - Syncope and collapse 2. Near syncope Subjective Follow-up For: Syncope/near syncope Tele-Events Since Last Visit: SR HR 65-74 Subjective: No complaints. No acute events overnight. Review of Systems Constitutional: Reports: see HPI. Objective Last 24 Hrs of Vital Signs/I&O Vital Signs Date Time Temp Pulse Resp B/P B/P Pulse O2 O2 Flow FiO2 Mean Ox Delivery Rate 06/01 0700 98.0 65 18 122/84 94 Room Air 05/31 2040 98.2 71 18 152/78 95 Room Air / 1553 97.6 65 16 144/88 96 Room Air / 1409 74 141/76 03/ 1341 98.1 64 20 119/68 98 Room Air 05/31 1222 98 Room Air / 1158 97.9 70 20 132/71 97 Room Air Intake & Output 03/ 1600 03/02 0800 03/02 0000 Intake Total 700 65 Output Total Balance 700 65 Intake, IV 600 5 Intake, Oral 100 60 Patient 98 lb 7 oz Weight Weight Reported by Patient Measurement Method Physical Exam General Appearance: Alert, Oriented X3, Cooperative, No Acute Distress HEENT: Atraumatic, PERRLA, EOMI, Mucous Membr. moist/pink Cardiovascular: Regular Rate, Normal S1, Normal S2, No Murmurs Lungs: Clear to Auscultation, Normal Air Movement Abdomen: Normal Bowel Sounds, Soft, No Tenderness Extremities: No Edema, Ecchymosis on promixal RUE on lateral aspect Current Medications: Current Medications Sig/Dylan Start time Last Medication Dose Route Stop Time Status Admin Aspirin Buffered 81 MG DAILY 05/31 1844 AC 05/31 PO 2155 Atorvastatin Calcium 40 MG 1700 06/01 1700 AC PO Bupropion HCl 150 MG DAILY 06/01 1000 AC PO Enoxaparin Sodium 40 MG 1900 06/01 1900 AC SC Enoxaparin Sodium 0 .STK-MED ONE 05/31 1918 DC SC Enoxaparin Sodium 40 MG DAILY 05/31 184 DC 05/31 SC 1922 Famotidine 20 MG DAILY 06/01 1000 AC PO Gabapentin 300 MG AT BEDTIME 05/31 2200 AC 05/31 PO 2155 Guaifenesin 10 ML Q4 HRS NEEDED PRN 05/31 184 AC PO Hydrochlorothiazide 12.5 MG DAILY 06/01 1000 AC PO Levothyroxine Sodium 0.125 MG DAILY AC 06/01 0700 AC 06/01 PO 0634 Losartan Potassium 50 MG DAILY 06/01 1000 AC PO Nadolol 80 MG DAILY 06/01 1000 AC PO Pravastatin Sodium 40 MG 1700 05/31 184 DC 05/31 PO 2155 Sodium Chloride 1,000 ML ONCE ONE 05/31 1844 DC 05/31 IV 06/01 0804 2156 Zolpidem Tartrate 5 MG QPM 05/31 2200 AC 05/31 PO 2155 Last 24 Hrs of Labs/Mics: Laboratory Tests 06/01/17 0637: Sodium Pending, Potassium Pending, Chloride Pending, Carbon Dioxide Pending, Anion Gap Pending, BUN Pending, Creatinine Pending, BUN/Creatinine Ratio Pending , Triglycerides Pending, Cholesterol Pending, LDL Cholesterol, Calc Pending, HDL Cholesterol Pending, Cholesterol/HDL Ratio Pending, CBC w Diff NO MAN DIFF REQ, RBC 4.45, MCV 84.3, MCH 27.9, MCHC 33.1, RDW 14.3, MPV 7.3 L, Gran % 74.5, Lymphocytes % 12.2 L, Monocytes % 10.1 H, Eosinophils % 2.6, Basophils % 0.6, Absolute Granulocytes 8.8 H, Absolute Lymphocytes 1.5, Absolute Monocytes 1.2 H, Absolute Eosinophils 0.3, Absolute Basophils 0.1 06/01/17 0000: Troponin I < 0.01 05/31/17 1922: Lactic Acid Cancelled 05/31/17 1827: Troponin I < 0.01 05/31/17 1620: Lactic Acid 1.0 05/31/17 1525: Urine Color YEL, Urine Clarity CLEAR, Urine pH 6.5, Ur Specific [place] 1.015, Urine Protein NEG, Urine Ketones NEG, Urine Nitrite NEG, Urine Bilirubin NEG, Urine Urobilinogen 0.2, Ur Leukocyte Esterase NEG, Ur Microscopic EXAM NOT REQUIRED, Urine Hemoglobin NEG, Urine Glucose NEG 05/31/17 1210: Anion Gap 14, Estimated GFR 55 L, BUN/Creatinine Ratio 38.0 H, Glucose 99, Calcium 10.0, Total Bilirubin 0.5, AST 21, ALT 21, Alkaline Phosphatase 54, Troponin I < 0.01, Total Protein 7.3, Albumin 3.9, Globulin 3.4, Albumin/ Globulin Ratio 1.1, TSH 4.400 H, Free T4 1.82, CBC w Diff MAN DIFF ORDERED, RBC 4.83, MCV 84.7, MCH 27.7, MCHC 32.7 L, RDW 14.2, MPV 6.9 L, Gran % 80.7 H, Lymphocytes % 10.0 L, Monocytes % 7.5, Eosinophils % 1.7, Basophils % 0.1, Absolute Granulocytes 13.8 H, Absolute Lymphocytes 1.7, Absolute Monocytes 1.3 H, Absolute Eosinophils 0.3, Absolute Basophils 0, Platelet Estimate ADEQUATE, Normocytic RBCs VERIFIED, Normochromic RBCs VERIFIED 06/01/17-0800 MRI-HEAD W/O ZARA IMPRESSION: 1. No acute infarct, mass lesion, intracranial hemorrhage, or evidence of hydrocephalus. 2. Moderate nonspecific foci of T2 hyperintensity in the bilateral cerebral white matter is most typical of small vessel ischemic changes. 3. 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 There is a probable subacute infarct within the left dentate nucleus. 4. Moderate chronic inflammatory changes in the paranasal sinuses and small amount of fluid in the mastoids. 05/31/17 [id number] DOPPLER IMPRESSION: There is plaque present in the right internal carotid artery with normal velocities consistent with a minimal 0-49% stenosis. The left side is normal with no plaque seen.
[2017-06-01 08:07] LABS: ABSOLUTE BASOPHIL COUNT 0.1 /CUMM (0.0-0.2); ABSOLUTE EOSINOPHIL COUNT 0.3 /CUMM (0.0-0.7); ABSOLUTE GRANULOCYTE CT 8.8 /CUMM (1.4-6.5); ABSOLUTE LYMPH COUNT 1.5 /CUMM (1.2-3.4); ABSOLUTE MONOCYTE COUNT 1.2 /CUMM (0.10-0.60); BASOPHIL % 0.6 % (0.0-2.0); EOSINOPHIL % 2.6 % (0-5); GRANULOCYTE % 74.5 % (42.2-75.2); HEMATOCRIT 37.5 % (37-47); MEAN CORPUSCULAR HGB 27.9 PG (27.0-31.0); MEAN CORPUSCULAR HGB CONC 33.1 G/DL (33.0-37.0); MEAN CORPUSCULAR VOLUME 84.3 FL (81.0-99.0); MEAN PLATELET VOLUME 7.3 FL (7.4-10.4); PLATELET COUNT 462 /CUMM (130-400); RBC DISTRIBUTION WIDTH 14.3 % (11.5-14.5); RED BLOOD CELL CT 4.45 /CUMM (4.20-5.40); WHITE BLOOD CELL COUNT 11.9 /CUMM (4.8-10.8)
--- NOTE | 2017-06-01 08:27 | ULTRASOUND REPORT ---
EXAMINATION: DUPLEX BILATERAL CAROTID ULTRASOUND CLINICAL INFORMATION: Syncope. Visual disturbances. COMPARISON: None. TECHNIQUE: Duplex bilateral carotid US was performed using real-time ultrasound and Doppler techniques (integrating B-mode 2D vascular images, Doppler spectral analysis and color flow Doppler imaging). These techniques were utilized to interrogate the extracranial carotid and vertebral arteries bilaterally. The degree of stenosis is based off criteria similar to NASCET. FINDINGS: 1. On the right: Plaque is present at the carotid bifurcation but velocity measurements are normal and do not suggest a stenosis of greater than 50% diameter reduction in the right ICA. The vertebral artery is patent demonstrating antegrade flow. 2. On the left: No plaque is present at the carotid bifurcation and all velocity measurements are normal and do not suggest a stenosis of greater than 50% diameter reduction in the left ICA. The vertebral artery is patent demonstrating antegrade flow. The external carotid arteries appear unremarkable. IMPRESSION: There is plaque present in the right internal carotid artery with normal velocities consistent with a minimal 0-49% stenosis. The left side is normal with no plaque seen.
--- NOTE | 2017-06-01 11:12 | MRI REPORT ---
EXAMINATION: MR BRAIN WITHOUT CONTRAST CLINICAL INFORMATION: Syncope at work. Transient slurred speech. Evaluate for cerebral infarcts. COMPARISON: Head CT 05/31/2017. TECHNIQUE: Multiplanar, multisequence imaging of the brain was performed without intravenous contrast. \H\ \N\FINDINGS: There is no acute infarct, hemorrhage, or mass lesion. There is no extra-axial collection. There are moderate scattered foci of T2 hyperintensity throughout the bilateral cerebral white matter and central mateusz. There is nonspecific T2 hyperintensity in the bilateral central tegmental tracts. There are chronic appearing bilateral basal ganglia and thalamic lacunar infarcts. A focus of facilitated diffusion within the left dentate nucleus likely represents a subacute lacunar infarct (series 3 image 54/72). The flow voids of the major intracranial arteries appear intact. There is moderate scattered paranasal sinus mucosal thickening predominantly involving the left maxillary sinus and ethmoid air cells. There are small amount of fluid in the bilateral mastoid air cells. There are bilateral lens replacements. IMPRESSION: 1. No acute infarct, mass lesion, intracranial hemorrhage, or evidence of hydrocephalus. 2. Moderate nonspecific foci of T2 hyperintensity in the bilateral cerebral white matter is most typical of small vessel ischemic changes. 3. 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 There is a probable subacute infarct within the left dentate nucleus. 4. Moderate chronic inflammatory changes in the paranasal sinuses and small amount of fluid in the mastoids.
[2017-06-01] MEDS ORDERED: ASPIRIN EC81 M1 PO ×2 (13:21→15:30)
--- NOTE | 2017-06-01 13:23 | Patient Discharge Instructions ---
Discharge Instructions General Discharge Information You were seen/treated for: Syncope/Near syncope You had these procedures: NONE Special Instructions: Follow up with your PCP upon discharge Follow up with the president ergonomic consulting within 1 week after discharge Diet Recommended Diet: Heart Healthy Activity Full Activity/No Limits: Yes Acute Coronary Syndrome Inclusion Criteria At DC or during hospital stay patient has or had the following: ACS DIAGNOSIS No Discharge Core Measures Meds if any: Prescribed or Continued at Discharge Meds if any: NOT Prescribed or Continued at Discharge Congestive Heart Failure Inclusion Criteria At DC or during hospital stay patient has or had the following: CHF DIAGNOSIS No Discharge Core Measures Meds if any: Prescribed or Continued at Discharge Meds if any: NOT Prescribed or Continued at Discharge Cerebrovascular accident Inclusion Criteria At DC or during hospital stay patient has or had the following: CVA/TIA Diagnosis Yes Discharge Core Measures Meds if any: Prescribed or Continued at Discharge Meds if any: NOT Prescribed or Continued at Discharge Venous thromboembolism Inclusion Criteria VTE Diagnosis No VTE Type NONE VTE Confirmed by (Test) NONE Discharge Core Measures - Per Current guidelines, there needs to be overlap - treatment for the first 5 days of Warfarin therapy. - If discharged on Warfarin prior to 5 days of - overlap therapy, the patient will need to be - assessed for post discharge needs including - *Post discharge parental anticoagulation - *Warfarin and/or parental anticoagulation education - *Follow up date to check INR post discharge At least 5 days overlap therapy as Inpatient No Meds if any: Prescribed or Continued at Discharge Note: Overlap Therapy is Warfarin and Anticoagulant Meds if any: NOT Prescribed or Continued at Discharge
[2017-06-01 14:37] VITALS: BP 118/69
--- NOTE | 2017-06-01 16:22 | Cons- Neurology ---
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 She was typing at a computer when suddenly she felt off. Her language paused, she developed slurred speech and per observers was tilting to one side.She also saw bright visual obscurations in both visual field. She cannot recall how she went down to the floor but next thing she knew she was laying on the floor. An ambulance was called. By the time it got there she was back to normal. She was taken to the hospital. She admits to having treated hypertension and hyperlipidemia. She was not taking an anti-platelet. She has life long migraines, and visual auras THAT ARE NOT followed by a migraine headache. However those visual auras are different and usually more complex. One interesting aspect is that prior to this event she felt a flutter of her heart. She admits that in the days leading to the event she had more fluttering then ever. She has however had this flutter since her youth. Allergies/Medications Allergies: Coded Allergies: azithromycin (Intermediate, HIGH BP 11/01/16) carisoprodol (From Soma) (Intermediate, MAKES ME DRUNK 11/01/16) Home Med List: Aspirin (Ecotrin*) 81 MG TABLET.DR 81 MG PO DAILY heart . Bupropion HCl (Bupropion XL) 150 MG TAB.ER.24H 1 TAB PO DAILY MENTAL HEALTH ( Reported) Famotidine 20 MG TABLET 1 TAB PO BID GI (Reported) Gabapentin 300 MG CAPSULE 300 MG PO AT BEDTIME ANXIETY AND SLEEP Ibandronate Sodium (Boniva) 150 MG TABLET 1 TAB PO Q30D BONE (Reported) on the same date with a full glass of water at least 30 minutes before first food or drink of the day; remain in an upright posi Ipratropium Saline 21 MCG (0.03 %) SPRAY 2 SPRAY NASB BID RHINITIS (Reported ) Levothyroxine Sodium (Synthroid) 125 MCG TABLET 0.125 MG PO DAILY AC THYROID Nadolol (Corgard) 80 MG TABLET 1 TAB PO DAILY HEART (Reported) Olmesartan/Hydrochlorothiazide (Benicar Hct 20-12.5 MG Tablet) 20 MG-12.5 MG TABLET 1 TAB PO DAILY HEART (Reported) Pravastatin Sodium (Pravachol) 40 MG TABLET 1 TAB PO DAILY CHOLESTEROL ( Reported) Zolpidem Tartrate 10 MG TABLET 5 MG PO QPM SLEEP (Reported) Current Medications: Current Medications Sig/Dylan Start time Last Medication Dose Route Stop Time Status Admin Aspirin Buffered 81 MG DAILY 05/31 1845 AC 06/01 PO 1027 Atorvastatin Calcium 40 MG 1700 06/01 1700 AC PO Bupropion HCl 150 MG DAILY 06/01 1000 AC 06/01 PO 1027 Enoxaparin Sodium 40 MG 1900 06/01 1900 AC SC Enoxaparin Sodium 0 .STK-MED ONE 05/31 1918 DC SC Enoxaparin Sodium 40 MG DAILY 05/31 1845 DC 05/31 SC 1922 Famotidine 20 MG DAILY 06/01 1000 AC 06/01 PO 1027 Gabapentin 300 MG AT BEDTIME 05/31 2200 AC 05/31 PO 2155 Guaifenesin 10 ML Q4 HRS NEEDED PRN 05/31 1845 AC PO Hydrochlorothiazide 12.5 MG DAILY 06/01 1000 AC 06/01 PO 1027 Levothyroxine Sodium 0.125 MG DAILY AC 06/01 0700 AC 06/01 PO 0634 Losartan Potassium 50 MG DAILY 06/01 1000 AC 06/01 PO 1027 Nadolol 80 MG DAILY 06/01 1000 AC 06/01 PO 1026 Patient Medication 1 ED ONE ONE 06/01 1530 DC Teaching ED 06/01 1531 Pravastatin Sodium 40 MG 1700 05/31 1845 DC 05/31 PO 2155 Sodium Chloride 1,000 ML ONCE ONE 05/31 1845 DC 03 IV 06/01 0804 2156 Zolpidem Tartrate 5 MG QPM 05/31 2200 AC 05/31 PO 2155 Review of Systems Review of Systems: As per HPI. Past History Travel History Traveled to [place] past 21 day No Medical History Blood Transfusion Hx: Yes Neurological: migraine EENT: cataracts, Sinus headaches Cardiovascular: hypertension, hyperlipidemia Respiratory: COPD Gastrointestinal: DIVERTICULITIS Hepatic: NONE Renal: NONE Musculoskeletal: OSTEOPOROSIS Psychiatric: anxiety, depression Endocrine: Serjio's thyroiditis Blood Disorders: anemia Cancer(s): R BREAST CA [employer] PRACTITIONER/Reproductive: NONE Surgical History Surgical History: lumpectomy (R), Sinus surgery Psychosocial History Where Do You Live? Home Services at Home: None Smoking Status: Never Smoked Functional Ability Ambulation: independent Exam & Diagnostic Data Vital Signs and I&O Vital Signs Date Time Temp Pulse Resp B/P B/P Pulse O2 O2 Flow FiO2 Mean Ox Delivery Rate 06/01 1437 98.4 69 15 118/69 93 Room Air 06/01 1027 76 122/84 06/01 1026 76 122/84 06/01 0800 94 Room Air 06/01 0700 98.0 65 18 122/84 94 Room Air 05/31 2040 98.2 71 18 152/78 95 Room Air Intake & Output 06/01 1600 / 0800 06/01 0000 Intake Total 1150 700 65 Output Total Balance 1150 700 65 Intake, IV 450 600 5 Intake, Oral 700 100 60 Patient 98 lb 6.98 oz 98 lb 7 oz Weight Weight Reported by Patient Measurement Method Physical Exam: Alert and oriented x 3. Lucid. Fluent, not slurred, comprehends everything. S12 normal RRR. EOMI, YA, no nsytagmus, faced symmetric, tongue midline, V1-V3 normal, TPZ strong, VF intact. Strength 5/5 throughout distribution. Reflexes normal with downgoing toes. FNF normal. Romberg negative,Sensory normal. Gait normal. Last 48 Hours of Lab Results: Laboratory Tests 06/01 06/01 05/31 0637 0000 1922 Chemistry Sodium (137 - 145 mmol/L) 135 L Potassium (3.5 - 5.1 mmol/L) 4.1 Chloride (98 - 107 mmol/L) 95 L Carbon Dioxide (22 - 30 mmol/L) 28 Anion Gap (5 - 16) 12 BUN (7 - 17 mg/dL) 24 H Creatinine (0.5 - 1.0 mg/dL) 0.8 Estimated GFR (>60 ml/min) > 60 BUN/Creatinine Ratio (7 - 25 %) 30.0 H Lactic Acid Cancelled Troponin I (< 0.11 ng/ml) < 0.01 Triglycerides (<150 mg/dL) 150 Cholesterol (<200 MG/DL) 145 LDL Cholesterol, Calc (65 - 129 mg/dL) 71 HDL Cholesterol (40 - 60 mg/dL) 44 Cholesterol/HDL Ratio (0.00 - 4.23 %) 3 Hematology CBC w Diff NO MAN DIFF REQ WBC (4.8 - 10.8 /CUMM) 11.9 H RBC (4.20 - 5.40 /CUMM) 4.45 Hgb (12.0 - 16.0 G/DL) 12.4 Hct (37 - 47 %) 37.5 MCV (81.0 - 99.0 FL) 84.3 MCH (27.0 - 31.0 PG) 27.9 MCHC (33.0 - 37.0 G/DL) 33.1 RDW (11.5 - 14.5 %) 14.3 Plt Count (130 - 400 /CUMM) 462 H MPV (7.4 - 10.4 FL) 7.3 L Gran % (42.2 - 75.2 %) 74.5 Lymphocytes % (20.5 - 51.1 %) 12.2 L Monocytes % (1.7 - 9.3 %) 10.1 H Eosinophils % (0 - 5 %) 2.6 Basophils % (0.0 - 2.0 %) 0.6 Absolute Granulocytes (1.4 - 6.5 /CUMM) 8.8 H Absolute Lymphocytes (1.2 - 3.4 /CUMM) 1.5 Absolute Monocytes (0.10 - 0.60 /CUMM) 1.2 H Absolute Eosinophils (0.0 - 0.7 /CUMM) 0.3 Absolute Basophils (0.0 - 0.2 /CUMM) 0.1 05/31 05/31 05/31 1827 1620 1525 Chemistry Lactic Acid (0.7 - 2.1 mmol/L) 1.0 Troponin I (< 0.11 ng/ml) < 0.01 Urines Urine Color (YEL,AMB,STR) YEL Urine Clarity (CLEAR) CLEAR Urine pH (5.0 - 8.0) 6.5 Ur Specific [place] (1.001 - 1.035) 1.015 Urine Protein (NEG,<30 MG/DL) NEG Urine Ketones (NEG) NEG Urine Nitrite (NEG) NEG Urine Bilirubin (NEG) NEG Urine Urobilinogen (0.1 - 1.0 EU/dl) 0.2 Ur Leukocyte Esterase (NEG) NEG Ur Microscopic EXAM NOT REQUIRED Urine Hemoglobin (NEG) NEG Urine Glucose (N MG/DL) NEG 05/31 1210 Chemistry Sodium (137 - 145 mmol/L) 135 L Potassium (3.5 - 5.1 mmol/L) 4.1 Chloride (98 - 107 mmol/L) 90 L Carbon Dioxide (22 - 30 mmol/L) 31 H Anion Gap (5 - 16) 14 BUN (7 - 17 mg/dL) 38 H Creatinine (0.5 - 1.0 mg/dL) 1.0 Estimated GFR (>60 ml/min) 55 L BUN/Creatinine Ratio (7 - 25 %) 38.0 H Glucose (65 - 99 mg/dL) 99 Calcium (8.4 - 10.2 mg/dL) 10.0 Total Bilirubin (0.2 - 1.3 mg/dL) 0.5 AST (14 - 36 U/L) 21 ALT (9 - 52 U/L) 21 Alkaline Phosphatase (<127 U/L) 54 Troponin I (< 0.11 ng/ml) < 0.01 Total Protein (6.3 - 8.2 g/dL) 7.3 Albumin (3.5 - 5.0 g/dL) 3.9 Globulin (1.9 - 4.2 gm/dL) 3.4 Albumin/Globulin Ratio (1.1 - 2.2 %) 1.1 TSH (0.270 - 4.200 uIU/mL) 4.400 H Free T4 (0.78 - 2.44 ng/dL) 1.82 Hematology CBC w Diff MAN DIFF ORDERED WBC (4.8 - 10.8 /CUMM) 17.1 H RBC (4.20 - 5.40 /CUMM) 4.83 Hgb (12.0 - 16.0 G/DL) 13.4 Hct (37 - 47 %) 41.0 MCV (81.0 - 99.0 FL) 84.7 MCH (27.0 - 31.0 PG) 27.7 MCHC (33.0 - 37.0 G/DL) 32.7 L RDW (11.5 - 14.5 %) 14.2 Plt Count (130 - 400 /CUMM) 482 H MPV (7.4 - 10.4 FL) 6.9 L Gran % (42.2 - 75.2 %) 80.7 H Lymphocytes % (20.5 - 51.1 %) 10.0 L Monocytes % (1.7 - 9.3 %) 7.5 Eosinophils % (0 - 5 %) 1.7 Basophils % (0.0 - 2.0 %) 0.1 Absolute Granulocytes (1.4 - 6.5 /CUMM) 13.8 H Absolute Lymphocytes (1.2 - 3.4 /CUMM) 1.7 Absolute Monocytes (0.10 - 0.60 /CUMM) 1.3 H Absolute Eosinophils (0.0 - 0.7 /CUMM) 0.3 Absolute Basophils (0.0 - 0.2 /CUMM) 0 Platelet Estimate (ADEQUATE) ADEQUATE Normocytic RBCs VERIFIED Normochromic RBCs VERIFIED Imaging/Other Studies: MRI brain: IMPRESSION: 1. No acute infarct, mass lesion, intracranial hemorrhage, or evidence of hydrocephalus. 2. Moderate nonspecific foci of T2 hyperintensity in the bilateral cerebral white matter is most typical of small vessel ischemic changes. 3. 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 There is a probable subacute infarct within the left dentate nucleus. 4. Moderate chronic inflammatory changes in the paranasal sinuses and small amount of fluid in the mastoids. CD: IMPRESSION: There is plaque present in the right internal carotid artery with normal velocities consistent with a minimal 0-49% stenosis. The left side is normal with no plaque seen. Assessment/Plan Assessment: 71 year old woman with a likely POSTERIOR CIRCULATION TIA, very short lived, possibly secondary to occult Afib. The patient HAS HAD PRIOR small vessels INFARCTIONS. Patients with migraine with aura are at an increased risk of strokes as they age , especially when coupled with other traditional cardiovascular risk factors. Recommendations: 1. Telemetry. If nothign found HAS TO GET 3 MONTHS OF LINQ MONITORING FOR PAF. 2. Start baby aspirin, in addition to statin and ARB that she is already on. 3. Echo. 4. I had discussed with her possibly starting a tiny dose of Nortriptyline as an outpt to reduce her chronic mixed headache disorder (she takes Excedrin every day). Consult Acknowledgment - Thank you for your consult request.
--- NOTE | 2017-06-01 17:08 | ECHOCARDIOGRAM REPORT ---
OZZIE CLEARY Age: 71 : 1945 Gender: F Exam Date: 06/01/2017 12:24 Exam Location: [place] Ht (in): 64 Wt (lb): 100 BSA: 1.42 BP: 122 / 84 Ordering Physician: Mitzy Kapoor MD Referring Physician: Mitzy Kapoor MD Technologist: Antonio Jean Baptiste [facility] Room Number: 174-1 Indications: PRESYNCOPE/SYNCOPE Rhythm: Sinus Technical Quality: good FINDINGS Left Ventricle Normal left ventricular size, wall thickness and systolic function with no obvious regional wall motion abnormalities. Normal left ventricular diastolic filling pattern for age. The ejection fraction is visually estimated at 60%. Right Ventricle The right ventricle is normal in size and function. Right Atrium The right atrium is normal in size. Left Atrium The left atrium is normal in size. The interatrial septum is intact. Mitral Valve The mitral valve is normal in structure and function. There is no mitral regurgitation. Aortic Valve Structurally normal aortic valve without significant sclerosis or stenosis. There is no aortic regurgitation. Tricuspid Valve The tricuspid valve is normal in structure and function. There is trace tricuspid regurgitation. Pulmonary artery systolic pressure is mildly elevated to 49mmHg. Pulmonic Valve Structurally normal pulmonic valve. There is no pulmonic regurgitation. Pericardium Normal pericardium without effusion. No pleural effusion. Great Vessels Normal aortic root dimension. The aortic arch and great vessels are well seen and are normal. CONCLUSIONS 1. Normal EF of 60%. 2. Trace tricuspid regurgitation. 3. Mild pulmonary hypertension. Jama Velásquez M.D. (Electronically Signed) Final Date: 01 June 2017 17:07 MEASUREMENTS (Male / Female) Normal Values 2D ECHO LV Diastolic Diameter PLAX 3.8 cm 4.2 - 5.9 / 3.9 - 5.3 cm LV Systolic Diameter PLAX 2.1 cm 2.1 - 4.0 cm LV Fractional Shortening PLAX 44.7 % 25 - 46 % LV Ejection Fraction 2D Teich 76.7 % IVS Diastolic Thickness 1.1 cm LVPW Diastolic Thickness 1.0 cm LV Relative Wall Thickness 0.6 LVOT Diameter 2.0 cm Aortic Root Diameter 2.9 cm LA Systolic Diameter LX 1.7 cm 3.0 - 4.0 / 2.7 - 3.8 cm Ascending Aorta Diameter 3.1 cm DOPPLER AV Peak Velocity 110.0 cm/s AV Peak Gradient 4.8 mmHg AV Mean Velocity 68.9 cm/s AV Mean Gradient 2.0 mmHg AV Velocity Time Integral 21.0 cm LVOT Peak Velocity 72.2 cm/s LVOT Peak Gradient 2.1 mmHg LVOT Mean Velocity 44.4 cm/s LVOT Mean Gradient 1.0 mmHg LVOT Velocity Time Integral 17.6 cm LVOT Stroke Volume 55.3 cm AV Area Cont Eq vti 2.6 cm AV Area Cont Eq pk 2.1 cm MV Peak Velocity 82.7 cm/s MV Peak Gradient 2.7 mmHg MV Mean Velocity 53.1 cm/s MV Mean Gradient 1.0 mmHg Mitral E Point Velocity 60.2 cm/s Mitral A Point Velocity 72.1 cm/s Mitral E to A Ratio 0.8 MV PHT Velocity 73.3 cm/s MV Deceleration [place] 232.0 cm/s MV Pressure Half Time 94.8 ms MV Area PHT 2.3 cm MV Deceleration Time 271.0 ms TR Peak Velocity 333.0 cm/s TR Peak Gradient 44.4 mmHg Right Atrial Pressure 5.0 mmHg Pulmonary Artery Systolic Pressu 49.4 mmHg Right Ventricular Systolic Press 49.4 mmHg PV Peak Velocity 56.5 cm/s PV Peak Gradient 1.3 mmHg PV Mean Velocity 36.6 cm/s PV Mean Gradient 1.0 mmHg PV Velocity Time Integral 10.8 cm LV E' Lateral Velocity 6.8 cm/s Mitral E to LV E' Lateral Ratio 8.8 LV E' Septal Velocity 6.8 cm/s Mitral E to LV E' Septal Ratio 8.8
[2017-06-01] MEDS ORDERED: ELIQUIS5 M1 PO (17:09)
--- NOTE | 2017-06-01 17:35 | Cons- Cardiology ---
General Information and HPI Consulting Request Date of Consult: 06/01/17 Requested By: Ye Conde MD History of Present Illness: Ms. Szymanski is a 71 year old female with history of hypertension and dyslipidemia who presented to the ER with symptoms of slurred speech and tilting to one side consistent with a CVA. This occured while typing at a computer at work and the patient was found lying on the floor. She cannot recall any palpitations at the time of this event but she does admit to palpitations at other times. In fact, she has had palpitations since a teenager that typically last for a few seconds at a time and are often associated with shortness of breath. At baseline, this patient is mildly active. She does not engage in vigorous activity however. She denies chest pain, pressure, tightness, shortness of breath at her current level of activity or significant lightheadedness. She is now back to her baseline without any residual deficits. The patient does have visual migraines without headache. Allergies/Medications Allergies: Coded Allergies: azithromycin (Intermediate, HIGH BP 11/01/16) carisoprodol (From Soma) (Intermediate, MAKES ME DRUNK 11/01/16) Home Med List: Apixaban (Eliquis) 5 MG TABLET 1 TAB PO BID CVA Aspirin (Ecotrin*) 81 MG TABLET.DR 81 MG PO DAILY heart . Bupropion HCl (Bupropion XL) 150 MG TAB.ER.24H 1 TAB PO DAILY MENTAL HEALTH ( Reported) Famotidine 20 MG TABLET 1 TAB PO BID GI (Reported) Gabapentin 300 MG CAPSULE 300 MG PO AT BEDTIME ANXIETY AND SLEEP Ibandronate Sodium (Boniva) 150 MG TABLET 1 TAB PO Q30D BONE (Reported) on the same date with a full glass of water at least 30 minutes before first food or drink of the day; remain in an upright posi Ipratropium [place] 21 MCG (0.03 %) SPRAY 2 SPRAY NASB BID RHINITIS (Reported ) Levothyroxine Sodium (Synthroid) 125 MCG TABLET 0.125 MG PO DAILY AC THYROID Nadolol (Corgard) 80 MG TABLET 1 TAB PO DAILY HEART (Reported) Olmesartan/Hydrochlorothiazide (Benicar Hct 20-12.5 MG Tablet) 20 MG-12.5 MG TABLET 1 TAB PO DAILY HEART (Reported) Pravastatin Sodium (Pravachol) 40 MG TABLET 1 TAB PO DAILY CHOLESTEROL ( Reported) Zolpidem Tartrate 10 MG TABLET 5 MG PO QPM SLEEP (Reported) Review of Systems Review of Systems: visual auras Past History Travel History Traveled to [place] past 21 day No Medical History Blood Transfusion Hx: Yes Neurological: migraine EENT: cataracts, Sinus headaches Cardiovascular: hypertension, hyperlipidemia Respiratory: COPD Gastrointestinal: DIVERTICULITIS Hepatic: NONE Renal: NONE Musculoskeletal: OSTEOPOROSIS Psychiatric: anxiety, depression Endocrine: Serjio's thyroiditis Blood Disorders: anemia 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 Mother: cerebral aneurysm Father: aneurysm Psychosocial History Where Do You Live? Home Services at Home: None Smoking Status: Never Smoked Functional Ability Ambulation: independent Exam & Diagnostic Data Vital Signs and I&O Vital Signs Date Time Temp Pulse Resp B/P B/P Pulse O2 O2 Flow FiO2 Mean Ox Delivery Rate 06/01 1600 93 Room Air 06/01 1437 98.4 69 15 118/69 93 Room Air 06/01 1027 76 122/84 06/01 1026 76 122/84 06/01 0800 94 Room Air / 0700 98.0 65 18 122/84 94 Room Air 05/31 2040 98.2 71 18 152/78 95 Room Air Intake & Output 06/01 1600 06/01 0800 06/01 0000 05/31 1600 05/31 0800 05/31 0000 Intake Total 1150 700 65 0 Output Total Balance 1150 700 65 0 Intake, IV 450 600 5 Intake, Oral 700 100 60 0 Patient 98 lb 6.98 oz 98 lb 7 oz Weight Weight Reported by Patient Measurement Method Physical Exam: General: WD/WN female in NAD; alert and oriented x 3 HEENT: NC/AT, PERRL, EOMI Neck: no JVD, no carotid bruit Heart: RRR w/o murmur Lungs: clear bilaterally Abdomen: soft, NT, +ve bowel sounds Extremities: no edema Neuro: non-focal and cranial nerves 2-12 grossly intact Assessment/Plan Assessment/Plan * This patient admits to longstanding palpitations with a varying history regarding their possible increase in frequency as of late. There is concern that she may have had a TIA from a cardio-embolic event. Fortunately, no thrombus was noted on her echocardiogram which otherwise showed a normal EF of 60%, normal left atrial size and mild pulmonary hypertension. It is reasonable and recommended to anticoagulate this patient with Eliquis 5mg BID while continuing her evaluation for paroxysmal atrial fibrillation. We will plan on implantation of a cardiac loop monitor as an outpatient to assess for A. Fib. She will need to stop Eliquis for 2 days prior to implantation of this device. * Continue aspirin at 81mg daily and a statin. * Continue her usual BP medications. * Follow up in the office in one week. Consult Acknowledgment - Thank you for your consult request.
== END 2017-06-01 19:00 ==
LOC: ERH 11:57 → 1NO 16:15 → ERHI 16:15 → ENRESERV 19:02 → ENTRNSPT 20:10 → EDTRNSPTSTS 20:20 → 1NO 20:25 → CMPTRNSPT 20:42 → 1NO 06-01 07:34
PROVIDERS: Internal Medicine; Physician Assistant Medical
DX: R55 Syncope and collapse (principal); F41.9 Anxiety disorder, unspecified; F32.9 Major depressive disorder, single episode, unspecified; Z78.0 Asymptomatic menopausal state; E78.5 Hyperlipidemia, unspecified; E06.3 Autoimmune thyroiditis; I10 Essential (primary) hypertension; J44.9 Chronic obstructive pulmonary disease, unspecified; G43.909 Migraine, unspecified, not intractable, without status migrainosus; Z85.3 Personal history of malignant neoplasm of breast; D64.9 Anemia, unspecified; M81.0 Age-related osteoporosis without current pathological fracture
CPT/HCPCS: 1NSP; 70551; 36415; 36592; 71045; 81003; 82436; 92610-GN; 93005; 93010; 93306; 96372; 97110-GO; 97116-GO; 97161-GP; 97166-GO; G0378; G8996-GN; G8997-GN; G8998-GN; J1650

== ENCOUNTER 2017-10-08 00:03 | Inpatient (IN) | payer OTHER ==
[~2017-10-08] VITALS: Ht 162.6 cm; Wt 41.4 kg
[~2017-10-08 00:03] MED LIST changes: +ASPIRIN EC81 M1 PO; +BENICAR HCT 201 EACH PO; +ELIQUIS5 M1 PO
--- NOTE | 2017-10-08 00:41 | ED MVC/FALL/TRAUMA COMPLAINT ---
History of Present Illness General Chief Complaint: Fall Stated Complaint: BIBA S/P FALL 9:30PM Source: patient, EMS Exam Limitations: no limitations Vital Signs & Intake/Output Vital Signs & Intake/Output Vital Signs Date Time Temp Pulse Resp B/P B/P Pulse O2 O2 Flow FiO2 Mean Ox Delivery Rate 10/08 0432 99.0 82 16 164/86 92 Room Air 10/08 0248 98.1 78 18 178/84 94 Room Air 10/08 0018 96.8 90 20 192/108 93 Room Air Allergies Coded Allergies: azithromycin (Intermediate, HIGH BP 10/08/17) carisoprodol (From Soma) (Intermediate, MAKES ME DRUNK 10/08/17) Reconcile Medications Aspirin (Ecotrin*) 81 MG TABLET.DR 81 MG PO DAILY heart . Bupropion HCl (Bupropion XL) 150 MG TAB.ER.24H 1 TAB PO DAILY MENTAL HEALTH ( Reported) Famotidine 20 MG TABLET 1 TAB PO BID GI (Reported) Gabapentin 300 MG CAPSULE 300 MG PO AT BEDTIME ANXIETY AND SLEEP Ibandronate Sodium (Boniva) 150 MG TABLET 1 TAB PO Q30D BONE (Reported) on the same date with a full glass of water at least 30 minutes before first food or drink of the day; remain in an upright posi Ipratropium [place] 21 MCG (0.03 %) SPRAY 2 SPRAY NASB BID RHINITIS (Reported ) Levothyroxine Sodium (Synthroid) 125 MCG TABLET 0.125 MG PO DAILY AC THYROID Nadolol (Corgard) 80 MG TABLET 1 TAB PO DAILY HEART (Reported) Olmesartan/Hydrochlorothiazide (Benicar Hct 20-12.5 MG Tablet) 20 MG-12.5 MG TABLET 1 TAB PO DAILY HEART (Reported) Pravastatin Sodium (Pravachol) 40 MG TABLET 1 TAB PO DAILY CHOLESTEROL ( Reported) Zolpidem Tartrate 10 MG TABLET 5 MG PO QPM SLEEP (Reported) Triage Note: TRIAGE: PATIENT TO ER FROM HOME REPORTING S/P MECHANICAL FELL 9:30PM, "WALKED OFF A STEP BECAUSE I THOUGHT IT WAS FLAT. LANDED ON R SIDE, -LOC/ -HIT HEAD. HURT MY R ARM AND THEN SAT ON STEP FOR 15-20 MINUTES. WALKED TO MY CAR, ACHEY IN R HIP, BUT OKAY. NOW CAN'T WALK. TRIED TO COME IN BUT THERE WAS NO PARKING AND THERE WAS STANDING ROOM IN THE WAITING ROOM ONLY. I DIDN'T WANT TO BE HERE UNTIL 3AM." PATIENT INCONTINENT OF URINE ON ARRIVAL D/T "COULDN'T WALK TO BATHROOM BEFORE COMING, TOO PAINFUL." PLACED ON BEDPAN IMMEDIATLEY ON ARRIVAL. Triage Nurses Notes Reviewed? yes Onset: Abrupt Duration: hour(s): Timing: single episode today Severity: moderate Injuries/Fall Location: lower extremity Method of Injury: fall Loss of Consciousness: no loss of consciousness Modifying Factors: Worsens With: movement, palpation. Associated Symptoms: RIGHT HIP PAIN HPI: 71-year-old woman in prior good health presents after mechanical fall. She states that she was walking up the front steps of her friend and missed a step. She tripped and landed on her right hip. She notes pain and difficulty with ambulation. She states, "I stood up and tried to walk and that the pain did me in." This fall took place approximately 3 hours ago. She notes abrasion on her right forearm. She did not hit her head or pass out. She notes no chest pain palpitations dizziness or presyncopal type symptoms. She is otherwise well. Past History Travel History Traveled to [place] past 21 day No Medical History Any Pertinent Medical History? 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 No Review of Systems Review of Systems Constitutional: Reports: no symptoms. Eyes: Reports: no symptoms. Ears, Nose, Throat, Mouth: Reports: no symptoms. Respiratory: Reports: no symptoms. Cardiovascular: Reports: no symptoms. Gastrointestinal/Abdominal: Reports: no symptoms. Genitourinary: Reports: no symptoms. Musculoskeletal: Reports: no symptoms. Skin: Reports: no symptoms. Neurological/Psychological: Reports: no symptoms. All Other Systems: Reviewed and Negative Physical Exam Physical Exam General Appearance: well developed/nourished, moderate distress Head: atraumatic, normal appearance Eyes: Bilateral: normal appearance. Ears, Nose, Throat, Mouth: hearing grossly normal, moist mucous membrane Neck: normal inspection, supple, full range of motion Respiratory: normal breath sounds, chest non-tender, no respiratory distress, quiet respiration, lungs clear Cardiovascular: regular rate/rhythm Peripheral Pulses: 2+ carotid (R), 2+ carotid (L) Back: normal inspection Extremities: right leg is shortened and externally rotated. 2+distal pulse, light touch intact. Neurologic/Psych: no motor/sensory deficits, awake, alert, oriented x 3 Skin: intact, normal color, warm/dry Core Measures ACS in differential dx? No CVA/TIA Diagnosis No Sepsis Present: No Sepsis Focused Exam Completed? No Progress Differential Diagnosis: hIP FRACTURE VERSUS OTHER Plan of Care: Orders Procedure Date/time Status Nothing by Mouth 10/08 B Active CBC WITHOUT DIFFERENTIAL 10/08 06 Active BASIC ELECTROLYTES PLUS BUN&CR 10/08 06 Active Weight 10/08 0450 Active Vital Signs 10/08 0450 Active Teach/Educate 10/08 045 Active Pain Treatment and Response 10/08 045 Active Nutritional Intake, Monitor 10/08 045 Active Isolation 10/08 0450 Active Intake & Output 10/08 0450 Active Patient Care Conference 10/08 0450 Active Activity/Ambulation 10/08 0450 Active Pathway - chart 10/08 0417 Active House Staff 10/08 0417 Active Code Status 10/08 0417 Active Patient Data 10/08 0326 Active Saline Lock 10/08 0318 Active Misc Message 10/08 0318 Active ED Holding Orders 10/08 0318 Active Admit to inpatient 10/08 0318 Active Vital Signs 10/08 0318 Active Code Status 10/08 0318 Complete TSH REFLEX 10/08 013 Complete TOTAL TRIODOTHYROXINE 10/08 013 Complete FREE T4 10/08 013 Complete Farris, Insertion/Removal/Asses 10/08 0105 Active CULTURE,URINE 10/08 0105 Active URINALYSIS 10/08 0105 Complete TROPONIN LEVEL 10/08 004 Complete PARTIAL THROMBOPLASTIN TIME 10/08 004 Complete PROTHROMBIN TIME 10/08 004 Complete COMPREHENSIVE METABOLIC PANEL 10/08 004 Complete CBC WITHOUT DIFFERENTIAL 10/08 40 Complete EKG 10/08 40 Active TYPE & SCREEN (NOT X-MATCH) 10/08 40 Complete Intake & Output 10/08 0004 Active VTE Mechanical Prophylaxis 10/08 UNK Active Vital Signs 10/08 UNK Active Intake & Output 10/08 UNK Active Current Medications Sig/Dylan Start time Last Medication Dose Stop Time Status Admin Gabapentin 300 MG AT BEDTIME 10/08 2099 AC (Neurontin) Zolpidem Tartrate 5 MG QPM 10/08 2099 AC (Ambien) Pravastatin Sodium 40 MG 1700 10/08 1700 AC (Pravachol) Bupropion HCl 150 MG DAILY 10/08 899 AC (Wellbutrin XL) Famotidine 20 MG BID 10/08 899 AC (Pepcid) Nadolol 80 MG DAILY 10/08 899 AC (Corgard) Levothyroxine Sodium 0.125 MG DAILY AC 10/08 699 AC (Synthroid) Hydromorphone HCl 0.4 MG Q4P PRN 10/08 0430 AC (Dilaudid) Sodium Chloride 1,000 ML ONCE ONE 10/08 023 AC 10/08 (Normal Saline 0.9%) 10/08 1029 0240 Laboratory Tests 10/08/17 0230: Urine Color STRAW, Urine Clarity HAZY H, Urine pH 7.0, Ur Specific [place] 1.015, Urine Protein 30 H, Urine Ketones NEG, Urine Nitrite NEG, Urine Bilirubin NEG, Urine Urobilinogen 0.2, Ur Leukocyte Esterase TRACE H, Ur Microscopic SEDIMENT EXAMINED, Urine RBC 3-5, Urine WBC 1-3 H, Ur Epithelial Cells FEW, Urine Bacteria RARE H, Urine Mucus FEW, Urine Hemoglobin TRACE- INTACT, Urine Glucose NEG 10/08/17 0130: Anion Gap 15, Estimated GFR > 60, BUN/Creatinine Ratio 38.3 H, Glucose 117 H, Calcium 9.8, Total Bilirubin 0.5, AST 33, ALT 35, Alkaline Phosphatase 96, Troponin I < 0.01, Total Protein 8.1, Albumin 4.1, Globulin 4.0, Albumin/ Globulin Ratio 1.0 L, Free T4 1.75, Total T3 1.17, TSH &T3 &Free T4 Intrp 7.600 H, PT 12.3, INR 1.13, APTT 27, CBC w Diff MAN DIFF ORDERED, RBC 4.97, MCV 82.8, MCH 26.9 L, MCHC 32.5 L, RDW 14.3, MPV 7.0 L, Gran % 89.2 H, Lymphocytes % 4.5 L, Monocytes % 4.8, Eosinophils % 1.2, Basophils % 0.3, Absolute Granulocytes 16.1 H, Segmented Neutrophils 86 H, Absolute Lymphocytes 0.8 L, Lymphocytes 6 L, Monocytes 6, Absolute Monocytes 0.9 H, Eosinophils 1, Absolute Eosinophils 0.2, Basophils 1, Absolute Basophils 0, Platelet Estimate INCREASED, Polychromasia 1+, Hypochromic-Microcytic 1+, Poikilocytosis 1+, Ovalocytes 1+, Stomatocytes FEW, Fld Total RBCs Counted 100 10/08/17 0129: TSH &T3 &Free T4 Intrp Cancelled Microbiology 10/08 0230 URINE ROUT: Urine Culture - RECD Diagnostic Imaging: Viewed by Me: Radiology Read. Discussed w/RAD: Radiology Read. Pre-Hospital EKG: PATIENT: OZZIE CLEARY PRESENT AGE: 71 PATIENT ACCOUNT NO: [id number] : 44 LOCATION: [facility] ORDERING PHYSICIAN: Saul Davey MD SERVICE DATE: 10/08/17 EXAM TYPE: RAD - XRY-PORTABLE CHEST XRAY EXAMINATION: XR PORTABLE CHEST CLINICAL INFORMATION: Preoperative COMPARISON: 05/31/2017 TECHNIQUE: Portable frontal view of the chest was obtained. FINDINGS: Cardiac Loop recorder noted. The lungs are well expanded. Prominent chronic interstitial change. Biapical pleural thickening and scarring. No pleural effusion or pneumothorax. No new consolidation. The cardiomediastinal silhouette is unchanged. IMPRESSION: Similar findings of chronic interstitial lung disease. No superimposed acute process noted. DICTATED BY: Jeff Diaz MD DATE/TIME DICTATED:10/08/17108 [employer] LAYOUT:MARILU DATE/TIME TRANSCRIBED:10/08/17108 CONFIDENTIAL, DO NOT COPY WITHOUT APPROPRIATE AUTHORIZATION. <Electronically signed in Other Vendor System> SIGNED BY: Jeff Diaz MD 10/08/17 0114 Initial ED EKG: normal axis, normal intervals, normal p-waves, normal QRS complex, normal sinus rhythm Departure Departure Disposition: STILL A PATIENT Condition: Stable Clinical Impression Primary Impression: Closed right hip fracture Secondary Impressions: Fall Referrals: Merlin Chapa MD (PCP/Family) Departure Forms: Customer Survey General Discharge Information Comments 10/08/17, 1:48am... discussed with dr. lowery and surgical PA. Surgical PA to evaluate patient. Admission Note Spoke With: Curt Bustos MD Documentation of Exam: Documentation of any treatments & extenuating circumstances including Concerns Regarding Discharge (functional status, medication knowledge or non-compliance, living conditions, etc.) that warrant an admission rather than observation: pt with right femoral neck fracture... to be admitted to medical service for clearance prior to surgical repair. Critical Care Note Critical Care Note Critical Care Time: 30-74 min
--- NOTE | 2017-10-08 01:14 | RADIOLOGY REPORT ---
EXAMINATION: XR PORTABLE CHEST CLINICAL INFORMATION: Preoperative COMPARISON: 05/31/2017 TECHNIQUE: Portable frontal view of the chest was obtained. FINDINGS: Cardiac Loop recorder noted. The lungs are well expanded. Prominent chronic interstitial change. Biapical pleural thickening and scarring. No pleural effusion or pneumothorax. No new consolidation. The cardiomediastinal silhouette is unchanged. IMPRESSION: Similar findings of chronic interstitial lung disease. No superimposed acute process noted.
--- NOTE | 2017-10-08 01:15 | RADIOLOGY REPORT ---
EXAMINATION: XR HIP, RIGHT CLINICAL INFORMATION: Fall COMPARISON: None TECHNIQUE: Two views of the right hip. FINDINGS: There is a right femoral neck fracture. Varus angulation at the fracture site. The femoral head remains seated within its acetabulum. The joint space is preserved. The visualized right hemipelvis is intact. The bowel gas pattern is unremarkable. IMPRESSION: Right femoral neck fracture with varus angulation.
--- NOTE | 2017-10-08 01:52 | Cons- Orthopedic ---
General Information and HPI Consulting Request Date of Consult: 10/08/17 Requested By: Dr. Davey Reason for Consult: hip fx History of Present Illness: 71yoF BIBA to ed with r hip pain after fall. Fall occured this evening, missed the step down when walking out to patio. No loc, no head injury. Denies cp, palps, sob, dizziness at time of fall. Does have hx falls, and is s/p left hip orif last year (gina). No other complaints at this time. Allergies/Medications Allergies: Coded Allergies: azithromycin (Intermediate, HIGH BP 10/08/17) carisoprodol (From Soma) (Intermediate, MAKES ME DRUNK 10/08/17) Home Med List: Aspirin (Ecotrin*) 81 MG TABLET.DR 81 MG PO DAILY heart . Bupropion HCl (Bupropion XL) 150 MG TAB.ER.24H 1 TAB PO DAILY MENTAL HEALTH ( Reported) Famotidine 20 MG TABLET 1 TAB PO BID GI (Reported) Gabapentin 300 MG CAPSULE 300 MG PO AT BEDTIME ANXIETY AND SLEEP Ibandronate Sodium (Boniva) 150 MG TABLET 1 TAB PO Q30D BONE (Reported) on the same date with a full glass of water at least 30 minutes before first food or drink of the day; remain in an upright posi Ipratropium [place] 21 MCG (0.03 %) SPRAY 2 SPRAY NASB BID RHINITIS (Reported ) Levothyroxine Sodium (Synthroid) 125 MCG TABLET 0.125 MG PO DAILY AC THYROID Nadolol (Corgard) 80 MG TABLET 1 TAB PO DAILY HEART (Reported) Olmesartan/Hydrochlorothiazide (Benicar Hct 20-12.5 MG Tablet) 20 MG-12.5 MG TABLET 1 TAB PO DAILY HEART (Reported) Pravastatin Sodium (Pravachol) 40 MG TABLET 1 TAB PO DAILY CHOLESTEROL ( Reported) Zolpidem Tartrate 10 MG TABLET 5 MG PO QPM SLEEP (Reported) Past History Medical History Neurological: migraine EENT: cataracts, Sinus headaches Cardiovascular: hypertension, hyperlipidemia, LINK HEART MONITOR Respiratory: COPD Gastrointestinal: DIVERTICULITIS Musculoskeletal: OSTEOPOROSIS Psychiatric: anxiety, depression Endocrine: Serjio's thyroiditis Blood Disorders: anemia Cancer(s): R BREAST CA Surgical History Pertinent Surgical History: lumpectomy (R), Sinus surgery Psychosocial History Services at Home: None Functional Ability Ambulation: independent Exam & Diagnostic Data Vital Signs and I&O Vital Signs Date Time Temp Pulse Resp B/P B/P Pulse O2 O2 Flow FiO2 Mean Ox Delivery Rate 10/08 0018 96.8 90 20 192/108 93 Room Air Intake & Output 10/08 0800 10/08 0000 10/07 1600 10/07 0800 10/07 0000 10/06 1600 Intake Total Output Total 500 Balance -500 Output, Urine 500 Patient 99 lb 15.99 oz Weight Weight Reported by Patient Measurement Method Physical Exam: gen- nad card-s1s2 rrr pulm- no audible wheeze ext- rle shortened, ext rotated. palp dp bl. feet warm, gross sensation and motor intact, calves soft nt. r hip ttp, no ecchymosis, no open skin. Last 24 Hours of Labs: Laboratory Tests 10/08 10/08 0130 0129 Chemistry Sodium Pending Potassium Pending Chloride Pending Carbon Dioxide Pending Anion Gap Pending BUN Pending Creatinine Pending BUN/Creatinine Ratio Pending Glucose Pending Calcium Pending Total Bilirubin Pending AST Pending ALT Pending Alkaline Phosphatase Pending Troponin I Pending Total Protein Pending Albumin Pending Globulin Pending Albumin/Globulin Ratio Pending TSH &T3 &Free T4 Intrp Pending Cancelled Coagulation PT Pending INR Pending APTT Pending Hematology CBC w Diff Pending WBC Pending RBC Pending Hgb Pending Hct Pending MCV Pending MCH Pending MCHC Pending RDW Pending Plt Count Pending MPV Pending Imaging Results: SERVICE DATE: 10/08/17 EXAM TYPE: RAD - XRY-HIP 2-3 VIEWS, RIGHT EXAMINATION: XR HIP, RIGHT CLINICAL INFORMATION: Fall COMPARISON: None TECHNIQUE: Two views of the right hip. FINDINGS: There is a right femoral neck fracture. Varus angulation at the fracture site. The femoral head remains seated within its acetabulum. The joint space is preserved. The visualized right hemipelvis is intact. The bowel gas pattern is unremarkable. IMPRESSION: Right femoral neck fracture with varus angulation. Assessment/Plan Assessment/Plan A- 71yoF with right femoral neck fx sp mechanical fall, with multiple medical comorbidites, otherwise stable P- will require OR once medically cleared hold home asa npo, ivf prn pain meds shady moran will dw attending Problem List: 1. Closed right hip fracture Consult Acknowledgment - Thank you for your consult request.
[2017-10-08 01:57] LABS: ABSOLUTE BASOPHIL COUNT 0 /CUMM (0.0-0.2); ABSOLUTE EOSINOPHIL COUNT 0.2 /CUMM (0.0-0.7); ABSOLUTE GRANULOCYTE CT 16.1 /CUMM (1.4-6.5); ABSOLUTE LYMPH COUNT 0.8 /CUMM (1.2-3.4); ABSOLUTE MONOCYTE COUNT 0.9 /CUMM (0.10-0.60); BASOPHIL % 0.3 % (0.0-2.0); EOSINOPHIL % 1.2 % (0-5); GRANULOCYTE % 89.2 % (42.2-75.2); HEMATOCRIT 41.2 % (37-47); MEAN CORPUSCULAR HGB 26.9 PG (27.0-31.0); MEAN CORPUSCULAR HGB CONC 32.5 G/DL (33.0-37.0); MEAN CORPUSCULAR VOLUME 82.8 FL (81.0-99.0); PLATELET COUNT 544 /CUMM (130-400); RBC DISTRIBUTION WIDTH 14.3 % (11.5-14.5); RED BLOOD CELL CT 4.97 /CUMM (4.20-5.40); WHITE BLOOD CELL COUNT 18.1 /CUMM (4.8-10.8)
[2017-10-08 01:59] LABS: PT 12.3 SEC (9.4-12.5); PTT 27 SEC (25-37)
--- NOTE | 2017-10-08 03:33 | History & Physical ---
Zoë ESPINOSA,[facility] 10/08/17 0333: General Information and HPI MD Statement: I have seen and personally examined OZZIE SZYMANSKI and documented this H&P. The patient is a 71 year old F who presented with a patient stated chief complaint of [Fall]. Source of Information: patient Exam Limitations: no limitations History of Present Illness: Ms Szymanski is a 71-year-old lady past medical history of hypertension, hyperlipidemia, COPD, diverticulitis, anxiety, depression, Hashimotos thyroiditis and right breast cancer presents after a fall around 9:30 p.m. According to the patient she was getting out of her friend's house, didn't realize she had to take the stairs, she stepped down, tripped and fell on her right side. Denies hitting her head or loss of consciousness. Also denies any chest pain, palpitations, lightheadedness/dizziness, weakness/numbness or tingling any part of her body or headaches prior to or after the fall. She was able to get up and drive herself to [facility], but because of a longer wait time she decided to drive back home and come back in the morning. She had to take a flight of stairs to her house, just put pressure on her right leg, mentions hearing a crack in her leg gave away and she sat down because she was unable to get up because of the excruciating pain. Her neighbor called the ambulance and she was brought into the [place] [facility]. Past History Travel History Traveled to [place] past 21 day No Medical History Neurological: migraine EENT: cataracts, Sinus headaches Cardiovascular: hypertension, hyperlipidemia, LINK HEART MONITOR Respiratory: COPD Gastrointestinal: DIVERTICULITIS Musculoskeletal: OSTEOPOROSIS Psychiatric: anxiety, depression Endocrine: Serjio's thyroiditis Blood Disorders: anemia Cancer(s): R BREAST CA History of MRSA: No History of VRE: No History of CDIFF: No Pneumonia Vaccine: 01/31/17 Influenza Vaccine: 02/15/17 Surgical History Surgical History: lumpectomy (R), Sinus surgery Past Family/Social History Family History Relations & Conditions if any MOTHER FATHER FHx: hypertension SISTER FHx: breast cancer BROTHER FH: myocardial infarction FHx: liver cancer Psychosocial History Where do you live? Home Who Do You Live With? self Services at Home: None Smoking Status: Never Smoked ETOH Use: denies use Illicit Drug Use: denies illicit drug use Functional Ability ADLs Independent: dressing, eating, toileting, bathing. Ambulation: independent IADLs Independent: shopping, housework, finances, food prep, telephone, transportation , medication admin. Review of Systems Review of Systems Constitutional: Reports: no symptoms. EENTM: Reports: no symptoms. Cardiovascular: Reports: no symptoms. Respiratory: Reports: no symptoms. GI: Reports: no symptoms. Genitourinary: Reports: no symptoms. Musculoskeletal: Reports: joint pain. Skin: Reports: no symptoms. Neurological/Psychological: Reports: no symptoms. Hematologic/Endocrine: Reports: no symptoms. Immunologic/Allergic: Reports: no symptoms. All Other Systems: Reviewed and Negative Exam & Diagnostic Data Last 24 Hrs of Vital Signs/I&O Vital Signs Date Time Temp Pulse Resp B/P B/P Pulse O2 O2 Flow FiO2 Mean Ox Delivery Rate 10/08 050 93 Nasal 2.0L Cannula 10/08 0501 99.1 87 18 160/96 93 Nasal 2.0L Cannula 10/08 0432 99.0 82 16 164/86 92 Room Air 10/08 0248 98.1 78 18 178/84 94 Room Air 10/08 0018 96.8 90 20 192/108 93 Room Air Intake & Output 10/08 0800 10/08 0000 10/07 1600 Intake Total Output Total 1300 Balance -1300 Output, Urine 1300 Patient 91 lb 3 oz Weight Weight Bed scale Measurement Method Physical Exam General Appearance Alert, Oriented X3, No Acute Distress, Moderate Distress Skin No Rashes, No Breakdown HEENT Atraumatic, PERRLA, EOMI, Mucous Membr. moist/pink Neck Supple, No JVD Cardiovascular Regular Rate, Normal S1, Normal S2 Lungs Clear to Auscultation, Normal Air Movement Abdomen Normal Bowel Sounds, Soft, No Tenderness, No Hepatospenomegaly Extremities No Clubbing, No Cyanosis, No Edema, Unable to move right lower ext( hip joint) because of pain Last 24 Hrs of Labs/Eddi: Laboratory Tests 10/08/17 0230: Urine Color STRAW, Urine Clarity HAZY H, Urine pH 7.0, Ur Specific [place] 1.015, Urine Protein 30 H, Urine Ketones NEG, Urine Nitrite NEG, Urine Bilirubin NEG, Urine Urobilinogen 0.2, Ur Leukocyte Esterase TRACE H, Ur Microscopic SEDIMENT EXAMINED, Urine RBC 3-5, Urine WBC 1-3 H, Ur Epithelial Cells FEW, Urine Bacteria RARE H, Urine Mucus FEW, Urine Hemoglobin TRACE- INTACT, Urine Glucose NEG 10/08/17 0130: Anion Gap 15, Estimated GFR > 60, BUN/Creatinine Ratio 38.3 H, Glucose 117 H, Calcium 9.8, Total Bilirubin 0.5, AST 33, ALT 35, Alkaline Phosphatase 96, Troponin I < 0.01, Total Protein 8.1, Albumin 4.1, Globulin 4.0, Albumin/ Globulin Ratio 1.0 L, Free T4 1.75, Total T3 1.17, TSH &T3 &Free T4 Intrp 7.600 H, PT 12.3, INR 1.13, APTT 27, CBC w Diff MAN DIFF ORDERED, RBC 4.97, MCV 82.8, MCH 26.9 L, MCHC 32.5 L, RDW 14.3, MPV 7.0 L, Gran % 89.2 H, Lymphocytes % 4.5 L, Monocytes % 4.8, Eosinophils % 1.2, Basophils % 0.3, Absolute Granulocytes 16.1 H, Segmented Neutrophils 86 H, Absolute Lymphocytes 0.8 L, Lymphocytes 6 L, Monocytes 6, Absolute Monocytes 0.9 H, Eosinophils 1, Absolute Eosinophils 0.2, Basophils 1, Absolute Basophils 0, Platelet Estimate INCREASED, Polychromasia 1+, Hypochromic-Microcytic 1+, Poikilocytosis 1+, Ovalocytes 1+, Stomatocytes FEW, Fld Total RBCs Counted 100 10/08/17 0129: TSH &T3 &Free T4 Intrp Cancelled Microbiology 10/08 0230 URINE ROUT: Urine Culture - RECD Diagnostic Data EKG Results NSR HR 85 QTc 457 CXR Results IMPRESSION: Similar findings of chronic interstitial lung disease. No superimposed acute process noted. Other Results XRY-HIP 2-3 VIEWS, RIGHT IMPRESSION: Right femoral neck fracture with varus angulation. Assessment/Plan Assessment: 71-year-old lady past medical history of hypertension, hyperlipidemia, COPD, diverticulitis, anxiety, depression, Hashimotos thyroiditis and right breast cancer presents after a fall around 9:30 p.m. Vitals on admission were temperature 96.8, heart rate 90, respiratory rate 20, BP 192/108, and oxygen saturation 90% on room air. She had a WBC count of 18.1, H&H 13.4/41.2, platelet count 544, INR 1.54 and unremarkable BEP. Right hip x-ray showed femoral neck fracture with Varus angulation. Problem List; 1. Mechanical Fall 2. Right femoral neck fracture 3. Leukocytosis and thrombosytosis - liekly reactive 4. Hypertension - BP 192/108 likely 2/2 to pain 5. Hx of Hypothyroidism and HLD - RCRI risk score of 0, she is at a low risk (0.4% ) of any major cardiac events for this intermediate risk surgery. - Keep nothing by mouth in anticipation of surgery in the morning. - Hold aspirin. - Ortho Consult. - Repeat labs in am - Pain Managment - Continue rest of the home medication. DVT Prophylaxis; ALPS Patient is full code As Ranked By This Provider Problem List: 1. Hip fracture Core Measures/Misc (12/17) Acute Coronary Syndrome ACS Diagnosis: No Congestive Heart Failure Congestive Heart Failure Diagnosis No Cerebrovascular Accident CVA/TIA Diagnosis: No VTE (View Protocol) VTE Risk Factors Age>40 No Mechanical VTE Prophylaxis d/t N/A MechProphylax Ordered No VTE Pharm Prophylaxis d/t Surgical Contraindication Sepsis (View protocol) Sepsis Present: No If YES complete Sepsis Event Note If YES complete Sepsis Event Note Juli ESPINOSADane 10/08/17 0610: General Information and HPI MD Statement: I have seen and personally examined OZZIE SZYMANSKI and documented this H&P. The patient is a 71 year old F who presented with a patient stated chief complaint of [hip pain ]. Source of Information: patient Exam Limitations: no limitations Allergies/Medications Allergies: Coded Allergies: azithromycin (Intermediate, HIGH BP 10/08/17) carisoprodol (From Soma) (Intermediate, MAKES ME DRUNK 10/08/17) Home Med list Aspirin (Ecotrin*) 81 MG TABLET.DR 81 MG PO DAILY heart . Bupropion HCl (Bupropion XL) 150 MG TAB.ER.24H 1 TAB PO DAILY MENTAL HEALTH ( Reported) Famotidine 20 MG TABLET 1 TAB PO BID GI (Reported) Gabapentin 300 MG CAPSULE 300 MG PO AT BEDTIME ANXIETY AND SLEEP Ibandronate Sodium (Boniva) 150 MG TABLET 1 TAB PO Q30D BONE (Reported) on the same date with a full glass of water at least 30 minutes before first food or drink of the day; remain in an upright posi Ipratropium [place] 21 MCG (0.03 %) SPRAY 2 SPRAY NASB BID RHINITIS (Reported ) Levothyroxine Sodium (Synthroid) 125 MCG TABLET 0.125 MG PO DAILY AC THYROID Nadolol (Corgard) 80 MG TABLET 1 TAB PO DAILY HEART (Reported) Olmesartan/Hydrochlorothiazide (Benicar Hct 20-12.5 MG Tablet) 20 MG-12.5 MG TABLET 1 TAB PO DAILY HEART (Reported) Pravastatin Sodium (Pravachol) 40 MG TABLET 1 TAB PO DAILY CHOLESTEROL ( Reported) Zolpidem Tartrate 10 MG TABLET 5 MG PO QPM SLEEP (Reported) Past History Medical History Neurological: migraine EENT: cataracts, Sinus headaches Cardiovascular: hypertension, hyperlipidemia Respiratory: COPD Gastrointestinal: DIVERTICULITIS Psychiatric: anxiety, depression Endocrine: Serjio's thyroiditis Blood Disorders: anemia Surgical History Surgical History: hip replacement, lumpectomy Review of Systems Review of Systems Constitutional: Reports: see HPI. Exam & Diagnostic Data Last 24 Hrs of Vital Signs/I&O Vital Signs Date Time Temp Pulse Resp B/P B/P Pulse O2 O2 Flow FiO2 Mean Ox Delivery Rate 10/08 0501 93 Nasal 2.0L Cannula 10/08 0501 99.1 87 18 160/96 93 Nasal 2.0L Cannula 10/08 0432 99.0 82 16 164/86 92 Room Air 10/08 0248 98.1 78 18 178/84 94 Room Air 10/08 0018 96.8 90 20 192/108 93 Room Air Intake & Output 10/08 0800 10/08 0000 10/07 1600 Intake Total Output Total 1100 Balance -1100 Output, Urine 1100 Patient 91 lb 3 oz Weight Weight Bed scale Measurement Method Physical Exam General Appearance Alert, Oriented X3, No Acute Distress Skin No Rashes HEENT Atraumatic, PERRLA, EOMI Neck Supple, No JVD Lymphatic Axillary nl, Cervical nl Cardiovascular Regular Rate, Normal S1, Normal S2 Lungs Clear to Auscultation, Normal Air Movement Abdomen Normal Bowel Sounds, Soft, No Tenderness, No Hepatospenomegaly Neurological Normal Speech Last 24 Hrs of Labs/Eddi: Laboratory Tests 10/08/17 0230: Urine Color STRAW, Urine Clarity HAZY H, Urine pH 7.0, Ur Specific [place] 1.015, Urine Protein 30 H, Urine Ketones NEG, Urine Nitrite NEG, Urine Bilirubin NEG, Urine Urobilinogen 0.2, Ur Leukocyte Esterase TRACE H, Ur Microscopic SEDIMENT EXAMINED, Urine RBC 3-5, Urine WBC 1-3 H, Ur Epithelial Cells FEW, Urine Bacteria RARE H, Urine Mucus FEW, Urine Hemoglobin TRACE- INTACT, Urine Glucose NEG 10/08/17 0130: Anion Gap 15, Estimated GFR > 60, BUN/Creatinine Ratio 38.3 H, Glucose 117 H, Calcium 9.8, Total Bilirubin 0.5, AST 33, ALT 35, Alkaline Phosphatase 96, Troponin I < 0.01, Total Protein 8.1, Albumin 4.1, Globulin 4.0, Albumin/ Globulin Ratio 1.0 L, Free T4 1.75, Total T3 1.17, TSH &T3 &Free T4 Intrp 7.600 H, PT 12.3, INR 1.13, APTT 27, CBC w Diff MAN DIFF ORDERED, RBC 4.97, MCV 82.8, MCH 26.9 L, MCHC 32.5 L, RDW 14.3, MPV 7.0 L, Gran % 89.2 H, Lymphocytes % 4.5 L, Monocytes % 4.8, Eosinophils % 1.2, Basophils % 0.3, Absolute Granulocytes 16.1 H, Segmented Neutrophils 86 H, Absolute Lymphocytes 0.8 L, Lymphocytes 6 L, Monocytes 6, Absolute Monocytes 0.9 H, Eosinophils 1, Absolute Eosinophils 0.2, Basophils 1, Absolute Basophils 0, Platelet Estimate INCREASED, Polychromasia 1+, Hypochromic-Microcytic 1+, Poikilocytosis 1+, Ovalocytes 1+, Stomatocytes FEW, Fld Total RBCs Counted 100 10/08/17 0129: TSH &T3 &Free T4 Intrp Cancelled Microbiology 10/08 0230 URINE ROUT: Urine Culture - RECD Core Measures/Misc (12/17) Sepsis (View protocol) If YES complete Sepsis Event Note If YES complete Sepsis Event Note Attending MD Review Statement Attending Statement Attending MD Statement: examined this patient, discuss w/resident/PA/BLOW MOLD OPERATOR, agreed w/resident/PA/BLOW MOLD OPERATOR, amended to note Attending Assessment/Plan: This patient is a 71-year-old white female with a significant past medical history for migraines, hyperlipidemia, hypertension, ORIF (left hip )and COPD. She is into to the emergency department after suffering a mechanical fall approximately 3 hours prior to presentation. Upon evaluation she was found to be afebrile with an elevated white blood cell count 18.1, platelet count of 544 and at BUN of 23. The hip x-ray demonstrated a right femoral neck fracture with varus angulation. An orthopedic consult was called. Will hold off antibiotics and give fluids while monitoring labs.
[2017-10-08 05:01] VITALS: BP 160/96
--- NOTE | 2017-10-08 07:34 | PN- Housestaff ---
Arnie Barrios 10/08/17 0733: Subjective Follow-up For: R Hip Fx s/p Fall Subjective: Patient seen and examined at bedside. Patient recently admitted status post fall, right hip fracture. Pt states pain to R hip, denies other complaints. Began vomiting, was controlled with IV Zofran. Patient to possibly go to the OR today. Review of Systems Constitutional: Reports: see HPI. Objective Last 24 Hrs of Vital Signs/I&O Vital Signs Date Time Temp Pulse Resp B/P B/P Pulse O2 O2 Flow FiO2 Mean Ox Delivery Rate 10/08 050 93 Nasal 2.0L Cannula 10/08 050 99.1 87 18 160/96 93 Nasal 2.0L Cannula 10/08 0432 99.0 82 16 164/86 92 Room Air 10/08 0248 98.1 78 18 178/84 94 Room Air 10/08 0018 96.8 90 20 192/108 93 Room Air Intake & Output 10/08 0800 10/08 0000 10/07 1600 Intake Total Output Total 1300 Balance -1300 Output, Urine 1300 Patient 91 lb 3 oz Weight Weight Bed scale Measurement Method Physical Exam General Appearance: Alert, Oriented X3, Cooperative, Mild Distress Skin Temp/Moisture Exam: Warm/Dry Cardiovascular: Regular Rate, Normal S1, Normal S2 Lungs: Clear to Auscultation, Normal Air Movement Abdomen: Soft, No Tenderness Extremities: No Edema, R Leg tenderness; rotated internally, shorter than L Current Medications: Current Medications Sig/Dylan Start time Last Medication Dose Route Stop Time Status Admin Bupropion HCl 150 MG DAILY 10/08 899 AC PO Famotidine 20 MG BID 10/08 899 AC PO Gabapentin 300 MG AT BEDTIME 10/08 2100 AC PO Hydromorphone HCl 0.4 MG Q4P PRN 10/08 429 AC IV Hydromorphone HCl 0 .STK-MED ONE 10/08 424 DC .ROUTE Hydromorphone HCl 0.4 MG ONCE ONE 10/08 414 DC 10/08 IV 10/09 415 0427 Levothyroxine Sodium 0.125 MG DAILY AC 10/08 699 AC PO Morphine Sulfate 2 MG ONCE ONE 10/08 0230 DC 10/08 IV 10/08 023 0240 Morphine Sulfate 0 .STK-MED ONE 10/08 022 DC .ROUTE Nadolol 80 MG DAILY 10/08 899 AC PO Ondansetron HCl 4 MG ONCE ONE 10/08 023 DC 10/08 IV 10/08 0231 0240 Ondansetron HCl 0 .STK-MED ONE 10/08 022 DC .ROUTE Pravastatin Sodium 40 MG 1700 10/08 1700 AC PO Sodium Chloride 1,000 ML ONCE ONE 10/08 0230 AC 10/08 IV 10/08 1029 0240 Zolpidem Tartrate 5 MG QPM 10/08 2100 AC PO Last 24 Hrs of Lab/Eddi Results Last 24 Hrs of Labs/Mics: Laboratory Tests 10/08/17 0230: Urine Color STRAW, Urine Clarity HAZY H, Urine pH 7.0, Ur Specific [place] 1.015, Urine Protein 30 H, Urine Ketones NEG, Urine Nitrite NEG, Urine Bilirubin NEG, Urine Urobilinogen 0.2, Ur Leukocyte Esterase TRACE H, Ur Microscopic SEDIMENT EXAMINED, Urine RBC 3-5, Urine WBC 1-3 H, Ur Epithelial Cells FEW, Urine Bacteria RARE H, Urine Mucus FEW, Urine Hemoglobin TRACE- INTACT, Urine Glucose NEG 10/08/17 0130: Anion Gap 15, Estimated GFR > 60, BUN/Creatinine Ratio 38.3 H, Glucose 117 H, Calcium 9.8, Total Bilirubin 0.5, AST 33, ALT 35, Alkaline Phosphatase 96, Troponin I < 0.01, Total Protein 8.1, Albumin 4.1, Globulin 4.0, Albumin/ Globulin Ratio 1.0 L, Free T4 1.75, Total T3 1.17, TSH &T3 &Free T4 Intrp 7.600 H, PT 12.3, INR 1.13, APTT 27, CBC w Diff MAN DIFF ORDERED, RBC 4.97, MCV 82.8, MCH 26.9 L, MCHC 32.5 L, RDW 14.3, MPV 7.0 L, Gran % 89.2 H, Lymphocytes % 4.5 L, Monocytes % 4.8, Eosinophils % 1.2, Basophils % 0.3, Absolute Granulocytes 16.1 H, Segmented Neutrophils 86 H, Absolute Lymphocytes 0.8 L, Lymphocytes 6 L, Monocytes 6, Absolute Monocytes 0.9 H, Eosinophils 1, Absolute Eosinophils 0.2, Basophils 1, Absolute Basophils 0, Platelet Estimate INCREASED, Polychromasia 1+, Hypochromic-Microcytic 1+, Poikilocytosis 1+, Ovalocytes 1+, Stomatocytes FEW, Fld Total RBCs Counted 100 10/08/17 0129: TSH &T3 &Free T4 Intrp Cancelled Microbiology 10/08 0230 URINE ROUT: Urine Culture - RECD Assessment/Plan Assessment: Ms Szymanski is a 71-year-old lady past medical history of hypertension, hyperlipidemia, COPD, diverticulitis, anxiety, depression, Hashimotos thyroiditis and right breast cancer presents after a fall around 9:30 p.m. Xray shows R femoral neck fx. #R Femoral Neck Fx -REVISED CARDIAC RISK CLASS I -Not high risk surgery -No history of ischemic heart disease -No history of congestive heart failure -No History of cerebrovascular disease -No Pre-operative treatment with insulin -Pre-operative creatinine <2 -Pt to go to OR today for ORIF -Appreciate Ortho consult -Appreciate Cardio consult : Per cardio, if pt hypertensive perioperative give IV Labetalol to control. -Pain control PRN #HTN Restarted home meds. Will monitor closely. #COPD -Not on oxygen at home. Will monitor for wheezes or exacerbation DVT ppx per ortho IV Access NPO for surgery Disposition Problem List: 1. Closed right hip fracture Pain Ratin Pain Location: R hip Pain Goal: Pain 4 or less Pain Plan: Dilaudid, Tylenol PRN Tomorrow's Labs & Rationales: Yaniv Silva 10/08/17 1255: Attending MD Review Statement Attending Statement Attending MD Statement: examined this patient, discuss w/resident/PA/TOBACCO WEIGHER, agreed w/resident/PA/TOBACCO WEIGHER, discussed with family, reviewed EMR data (avail), discussed with nursing, discussed with case mgmt, reviewed images, amended to note Attending Assessment/Plan: Patient with pmh of hypertension, hyperlipidmeia and syncope comes with right hip fracture. Patient c/o pain at hip and otherwise no complaints. Patient is slightly hypertensive this morning. Right hip pain and fracture. Orhtopedics consult and plan to OR. Hypertension uncontrolled Asked nurse to give home PO meds and recheck blood pressure. Obtain cardiology consult and recommend patient cleared for surgery with use of iv labetalol in hien-operative period. HELD ASA. COPD not on home oxygen stable not in exacerbation without wheezes. Patient is low to moderate risk for surgery. Patient has no active contraindciations for the orthopedic procedure and can be safely taken to OR. If blood pressure is raised consider iv labetalol for control. DVT prophyalxis as per orthopedics.
[2017-10-08 10:02] LABS: ABSOLUTE BASOPHIL COUNT 0 /CUMM (0.0-0.2); ABSOLUTE GRANULOCYTE CT 12.2 /CUMM (1.4-6.5); BASOPHIL % 0.3 % (0.0-2.0); MEAN CORPUSCULAR VOLUME 82.2 FL (81.0-99.0); WHITE BLOOD CELL COUNT 14.1 /CUMM (4.8-10.8)
[2017-10-08 11:00] LABS: ABSOLUTE EOSINOPHIL COUNT 0.2 /CUMM (0.0-0.7); ABSOLUTE LYMPH COUNT 0.8 /CUMM (1.2-3.4); ABSOLUTE MONOCYTE COUNT 0.9 /CUMM (0.10-0.60); EOSINOPHIL % 1.4 % (0-5); MEAN CORPUSCULAR HGB 26.9 PG (27.0-31.0); MEAN CORPUSCULAR HGB CONC 32.7 G/DL (33.0-37.0); MEAN PLATELET VOLUME 7.4 FL (7.4-10.4); PLATELET COUNT 463 /CUMM (130-400); RBC DISTRIBUTION WIDTH 14.5 % (11.5-14.5); RED BLOOD CELL CT 4.26 /CUMM (4.20-5.40)
[2017-10-08 11:06] LABS: HEMATOCRIT 35.1 % (37-47)
[2017-10-08 11:25] LABS: GRANULOCYTE % 86.2 % (42.2-75.2)
[2017-10-08 14:45] VITALS: BP 120/80
--- NOTE | 2017-10-08 19:40 | RADIOLOGY REPORT ---
EXAMINATION: XR HIP, RIGHT CLINICAL INFORMATION: Status post hemiarthroplasty. COMPARISON: None TECHNIQUE: Portable frontal view of the right hip obtained in the PACU. FINDINGS: Patient is status post right hemiarthroplasty placement. The femoral component is well seated within both the femur and acetabulum. No evidence for hardware failure. Expected soft tissue gas. IMPRESSION: Anatomic alignment status post right hemiarthroplasty
[2017-10-08 20:22] VITALS: BP 120/72
--- NOTE | 2017-10-08 22:09 | PN- Orthopedic ---
Subjective Subjective: Post op check Awake post op without specific complaints Pain is tolerable at this time Objective Vital Signs and I&Os Vital Signs Date Time Temp Pulse Resp B/P B/P Pulse O2 O2 Flow FiO2 Mean Ox Delivery Rate 10/08 2021 97.8 70 16 120/72 95 Nasal 3.0L Cannula 10/08 1445 97.9 83 20 120/80 92 07/ 0929 Nasal 2.0L Cannula 10/08 0816 87 160/96 10/08 0800 Nasal 2.0L Cannula 10/08 0501 93 Nasal 2.0L Cannula 10/08 0501 99.1 87 18 160/96 93 Nasal 2.0L Cannula 10/08 0432 99.0 82 16 164/86 92 Room Air 10/08 0248 98.1 78 18 178/84 94 Room Air 10/08 0018 96.8 90 20 192/108 93 Room Air Intake & Output 10/08 1600 10/08 0800 / 0000 / 1600 10/07 0800 10/07 0000 Intake Total 375 Output Total 600 1300 Balance -225 -1300 Intake, IV 375 Output, Urine 600 1300 Patient 91 lb 3 oz Weight Weight Bed scale Measurement Method Physical Exam: Ext: warm, no edema, normosensate, good 5/5 ENMA Wd: dressed, dry Assessment/Plan Assessment/Plan 71yo female s/p R femoral neck fx - rafal lovenox for dvt ppx - recommend beginning tomorrow evening 10/09 ALPS reinforce dressing as needed PT - wbat all other plan per medical team
[2017-10-09] VITALS (8 sets, daily range): BP systolic 120–158; BP diastolic 70–90
--- NOTE | 2017-10-09 08:05 | Patient Discharge Instructions ---
Discharge Instructions General Discharge Information You were seen/treated for: Right hip fracture status post hemiarthroplasty Transient ischemic attack Special Instructions: - Please follow up with your primary care physician within 1-2 weeks of discharge. Inform your primary care physician of this admission to [facility]. - Continue your current medications per discharge instructions. 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 Needs five more weeks of anticoagulation with Pradaxa still 11/19/2017 Diet Continue normal diet: Yes Activity Full Activity/No Limits: No Activity Self Limited: Yes Activity Limited to: Weight bear as tolerated Acute Coronary Syndrome Inclusion Criteria At DC or during hospital stay patient has or had the following: ACS DIAGNOSIS No Discharge Core Measures Meds if any: Prescribed or Continued at Discharge Meds if any: NOT Prescribed or Continued at Discharge Congestive Heart Failure Inclusion Criteria At DC or during hospital stay patient has or had the following: CHF DIAGNOSIS No Discharge Core Measures Meds if any: Prescribed or Continued at Discharge Meds if any: NOT Prescribed or Continued at Discharge Cerebrovascular accident Inclusion Criteria At DC or during hospital stay patient has or had the following: CVA/TIA Diagnosis No Discharge Core Measures Meds if any: Prescribed or Continued at Discharge Meds if any: NOT Prescribed or Continued at Discharge Venous thromboembolism Inclusion Criteria VTE Diagnosis No VTE Type NONE VTE Confirmed by (Test) NONE Discharge Core Measures - Per Current guidelines, there needs to be overlap - treatment for the first 5 days of Warfarin therapy. - If discharged on Warfarin prior to 5 days of - overlap therapy, the patient will need to be - assessed for post discharge needs including - *Post discharge parental anticoagulation - *Warfarin and/or parental anticoagulation education - *Follow up date to check INR post discharge At least 5 days overlap therapy as Inpatient No Meds if any: Prescribed or Continued at Discharge Note: Overlap Therapy is Warfarin and Anticoagulant Meds if any: NOT Prescribed or Continued at Discharge
--- NOTE | 2017-10-09 08:22 | Cons- Cardiology ---
General Information and HPI Consulting Request Date of Consult: 10/08/17 Requested By: Yaniv Fowler MD Reason for Consult: Preoperative evaluation, hip fracture Source of Information: patient, family, old records Exam Limitations: no limitations History of Present Illness: The patient is a 71-year-old woman with a past medical history of hypertension, hyperlipidemia, COPD, Serjio's thyroiditis and prior CVA (with a Medtronic Linq implant to evaluate for paroxysmal atrial fibrillation: Negative to date). She presents to our hospital following a mechanical fall, sustaining a right hip fracture, and requires surgical repair of the same. From a cardiac standpoint, the patient is doing overall well, and describes performance of greater than 6 METs of physical activity on a regular basis without difficulty. She denies symptoms of chest pain/palpitations nor dyspnea at rest or with physical activity. An echocardiogram was performed in May 2017 which demonstrated overall preserved LV function and structure. Recent interrogation of her implanted Linq device demonstrated no significant atrial nor ventricular arrhythmia. The patient states that the fall was sustained following and down stairs and missed stepping, missing a stair. There were no symptoms of chest pains, palpitations nor lightheadedness other prodrome. There was no syncopal episode associated with a fall. Allergies/Medications Allergies: Coded Allergies: azithromycin (Intermediate, HIGH BP 10/08/17) carisoprodol (From Soma) (Intermediate, MAKES ME DRUNK 10/08/17) Home Med List: Aspirin (Ecotrin*) 81 MG TABLET.DR 81 MG PO DAILY heart . Bupropion HCl (Bupropion XL) 150 MG TAB.ER.24H 1 TAB PO DAILY MENTAL HEALTH ( Reported) Famotidine 20 MG TABLET 1 TAB PO BID GI (Reported) Gabapentin 300 MG CAPSULE 300 MG PO AT BEDTIME ANXIETY AND SLEEP Ibandronate Sodium (Boniva) 150 MG TABLET 1 TAB PO Q30D BONE (Reported) on the same date with a full glass of water at least 30 minutes before first food or drink of the day; remain in an upright posi Ipratropium [place] 21 MCG (0.03 %) SPRAY 2 SPRAY NASB BID RHINITIS (Reported ) Levothyroxine Sodium (Synthroid) 125 MCG TABLET 0.125 MG PO DAILY AC THYROID Nadolol (Corgard) 80 MG TABLET 1 TAB PO DAILY HEART (Reported) Olmesartan/Hydrochlorothiazide (Benicar Hct 20-12.5 MG Tablet) 20 MG-12.5 MG TABLET 1 TAB PO DAILY HEART (Reported) Pravastatin Sodium (Pravachol) 40 MG TABLET 1 TAB PO DAILY CHOLESTEROL ( Reported) Zolpidem Tartrate 10 MG TABLET 5 MG PO QPM SLEEP (Reported) Current Medications: Current Medications Sig/Dylan Start time Last Medication Dose Route Stop Time Status Admin Acetaminophen 650 MG Q4P PRN 10/08 1815 AC PO Acetaminophen 325 MG ONCE ONE 10/08 1445 CAN PO 10/08 1446 Bupropion HCl 150 MG DAILY 10/08 899 AC PO Cefazolin Sodium 1,000 MG IQ8 10/09 0000 DC 10/08 IV 10/09 0801 2329 Dextrose/Sodium 1,000 ML Q13H 10/08 1915 AC 10/08 Chloride IV 2009 Enoxaparin Sodium 40 MG QPM 10/09 2100 AC SC Famotidine 20 MG BID 10/08 899 AC 10/08 PO 2044 Fentanyl Citrate 200 MCG .STK-MED ONE 10/08 1537 DC IM 10/08 1538 Gabapentin 300 MG AT BEDTIME 10/08 2100 AC 10/08 PO 2044 Hydromorphone HCl 0.4 MG Q4P PRN 10/08 0430 AC 10/08 IV 2225 Ketamine HCl 50 MG .STK-MED ONE 10/08 1557 DC IM 10/08 1558 Levothyroxine Sodium 0.125 MG DAILY AC 10/08 07 AC 10/09 PO 0536 Losartan Potassium 50 MG DAILY 10/08 1411 AC PO Midazolam HCl 2 MG .STK-MED ONE 10/08 1537 DC IM 10/08 1538 Nadolol 80 MG DAILY 10/08 899 AC 10/08 PO 0816 Ondansetron HCl 4 MG Q6P PRN 10/08 2245 AC 10/08 IV 2238 Ondansetron HCl 4 MG ONCE ONE 10/08 1445 DC 10/08 IV 10/08 1446 1459 Ondansetron HCl 4 MG ONCE ONE 10/08 899 DC 10/08 IV 10/08 0901 0912 Oxycodone/ 1 TAB Q4P PRN 10/08 1815 AC 10/09 Acetaminophen PO 0410 Oxycodone/ 2 TAB Q4P PRN 10/08 1815 AC Acetaminophen PO Patient Medication 1 ED ONE ONE 10/08 1230 DC Teaching ED 10/08 1231 Pravastatin Sodium 40 MG 1700 10/08 1700 AC 10/08 PO 2045 Sodium Chloride 1,000 ML ONCE ONE 10/08 0230 DC 10/08 IV 10/08 1029 0240 Tranexamic Acid 2,000 MG .STK-MED ONE 10/08 1536 DC IV 10/08 1537 Zolpidem Tartrate 5 MG QPM 10/08 2100 AC 10/08 PO 2045 Review of Systems Review of Systems: The review of systems is negative for chest pains, palpitations nor lightheadedness. The remainder of the 14 point review of systems is noncontributory with the exception of above. Past History Travel History Traveled to [place] past 21 day No Medical History Blood Transfusion Hx: Yes Neurological: migraine EENT: cataracts, Sinus headaches Cardiovascular: hypertension, hyperlipidemia Respiratory: COPD Gastrointestinal: DIVERTICULITIS Musculoskeletal: OSTEOPOROSIS Psychiatric: anxiety, depression Endocrine: Serjio's thyroiditis Blood Disorders: anemia Cancer(s): R BREAST CA Surgical History Surgical History: lumpectomy (R), Sinus surgery Family History Relations & Conditions If Any: MOTHER FATHER FHx: hypertension SISTER FHx: breast cancer BROTHER FH: myocardial infarction FHx: liver cancer Psychosocial History Where Do You Live? Home Who Do You Live With? self Services at Home: None Smoking Status: Never Smoked ETOH Use: denies use Illicit Drug Use: denies illicit drug use Functional Ability ADLs Independent: dressing, eating, toileting, bathing. Ambulation: independent IADLs Independent: shopping, housework, finances, food prep, telephone, transportation , medication admin. Exam & Diagnostic Data Vital Signs and I&O Vital Signs Date Time Temp Pulse Resp B/P B/P Pulse O2 O2 Flow FiO2 Mean Ox Delivery Rate 10/09 0404 99.3 87 20 156/80 92 Nasal Cannula 10/09 0011 98.3 79 18 150/86 93 Nasal Cannula 10/09 0000 93 Nasal 3.0L Cannula 10/08 2259 3.0L 10/08 2021 97.8 70 16 120/72 95 Nasal 3.0L Cannula 10/08 1445 97.9 83 20 120/80 92 10/08 0929 Nasal 2.0L Cannula Intake & Output 10/09 1600 10/09 0810/09 0000 10/08 1600 10/08 0000 Intake Total 960 480 375 Output Total 150 50 600 1300 Balance 810 430 -225 -1300 Intake, IV 600 375 Intake, Oral 360 480 Number 0 Bowel Movements Output, Urine 150 50 600 1300 Patient 91 lb 3 oz Weight Weight Bed scale Measurement Method Physical Exam: General: Nontoxic, no apparent distress. HEENT: Sclera and conjunctiva within normal limits, without xanthelasmas. Neck: Carotids 2+ without bruits. Respiratory: Clear to auscultation, air movement is good, without accessory respiratory muscle use. Heart: Regular rate and rhythm, without murmurs, without JVD. Abdomen: Soft, nontender, no masses, normoactive bowel sounds. Extremities: Without clubbing, cyanosis, without edema, right lower extremity external rotated. Neuro: Nonfocal exam, strength, 5 out of 5 Skin: Within normal limits without lesions. Psych: Mood and affect: Normal Labs/Eddi Results: Laboratory Tests 10/08 10/08 0820 0230 Chemistry Sodium (137 - 145 mmol/L) 142 Potassium (3.5 - 5.1 mmol/L) 3.9 Chloride (98 - 107 mmol/L) 102 Carbon Dioxide (22 - 30 mmol/L) 29 Anion Gap (5 - 16) 11 BUN (7 - 17 mg/dL) 22 H Creatinine (0.5 - 1.0 mg/dL) 0.6 Estimated GFR (>60 ml/min) > 60 BUN/Creatinine Ratio (7 - 25 %) 36.7 H Hematology CBC w Diff NO MAN DIFF REQ WBC (4.8 - 10.8 /CUMM) 14.1 H RBC (4.20 - 5.40 /CUMM) 4.26 Hgb (12.0 - 16.0 G/DL) 11.5 L Hct (37 - 47 %) 35.1 L MCV (81.0 - 99.0 FL) 82.2 MCH (27.0 - 31.0 PG) 26.9 L MCHC (33.0 - 37.0 G/DL) 32.7 L RDW (11.5 - 14.5 %) 14.5 Plt Count (130 - 400 /CUMM) 463 H MPV (7.4 - 10.4 FL) 7.4 Gran % (42.2 - 75.2 %) 86.2 H Lymphocytes % (20.5 - 51.1 %) 5.9 L Monocytes % (1.7 - 9.3 %) 6.2 Eosinophils % (0 - 5 %) 1.4 Basophils % (0.0 - 2.0 %) 0.3 Absolute Granulocytes (1.4 - 6.5 /CUMM) 12.2 H Absolute Lymphocytes (1.2 - 3.4 /CUMM) 0.8 L Absolute Monocytes (0.10 - 0.60 /CUMM) 0.9 H Absolute Eosinophils (0.0 - 0.7 /CUMM) 0.2 Absolute Basophils (0.0 - 0.2 /CUMM) 0 Urines Urine Color (YEL,AMB,STR) STRAW Urine Clarity (CLEAR) HAZY H Urine pH (5.0 - 8.0) 7.0 Ur Specific [place] (1.001 - 1.035) 1.015 Urine Protein (NEG,<30 MG/DL) 30 H Urine Ketones (NEG) NEG Urine Nitrite (NEG) NEG Urine Bilirubin (NEG) NEG Urine Urobilinogen (0.1 - 1.0 EU/dl) 0.2 Ur Leukocyte Esterase (NEG) TRACE H Ur Microscopic SEDIMENT EXAMINED Urine RBC (0 - 5 /HPF) 3-5 Urine WBC (0 - 2 /HPF) 1-3 H Ur Epithelial Cells (NONE,FEW) FEW Urine Bacteria (NEG/NONE) RARE H Urine Mucus (FEW,NONE) FEW Urine Hemoglobin (NEG) TRACE-INTACT Urine Glucose (N MG/DL) NEG 10/08 10/08 0130 0129 Chemistry Sodium (137 - 145 mmol/L) 141 Potassium (3.5 - 5.1 mmol/L) 3.9 Chloride (98 - 107 mmol/L) 98 Carbon Dioxide (22 - 30 mmol/L) 28 Anion Gap (5 - 16) 15 BUN (7 - 17 mg/dL) 23 H Creatinine (0.5 - 1.0 mg/dL) 0.6 Estimated GFR (>60 ml/min) > 60 BUN/Creatinine Ratio (7 - 25 %) 38.3 H Glucose (65 - 99 mg/dL) 117 H Calcium (8.4 - 10.2 mg/dL) 9.8 Total Bilirubin (0.2 - 1.3 mg/dL) 0.5 AST (14 - 36 U/L) 33 ALT (9 - 52 U/L) 35 Alkaline Phosphatase (<127 U/L) 96 Troponin I (< 0.11 ng/ml) < 0.01 Total Protein (6.3 - 8.2 g/dL) 8.1 Albumin (3.5 - 5.0 g/dL) 4.1 Globulin (1.9 - 4.2 gm/dL) 4.0 Albumin/Globulin Ratio (1.1 - 2.2 %) 1.0 L Free T4 (0.78 - 2.44 ng/dL) 1.75 Total T3 (0.97 - 1.69 ng/mL) 1.17 TSH &T3 &Free T4 Intrp (0.270 - 4.20 uIU/mL) 7.600 H Cancelled Coagulation PT (9.4 - 12.5 SEC) 12.3 INR (0.90 - 1.19) 1.13 APTT (25 - 37 SEC) 27 Hematology CBC w Diff MAN DIFF ORDERED WBC (4.8 - 10.8 /CUMM) 18.1 H RBC (4.20 - 5.40 /CUMM) 4.97 Hgb (12.0 - 16.0 G/DL) 13.4 Hct (37 - 47 %) 41.2 MCV (81.0 - 99.0 FL) 82.8 MCH (27.0 - 31.0 PG) 26.9 L MCHC (33.0 - 37.0 G/DL) 32.5 L RDW (11.5 - 14.5 %) 14.3 Plt Count (130 - 400 /CUMM) 544 H MPV (7.4 - 10.4 FL) 7.0 L Gran % (42.2 - 75.2 %) 89.2 H Lymphocytes % (20.5 - 51.1 %) 4.5 L Monocytes % (1.7 - 9.3 %) 4.8 Eosinophils % (0 - 5 %) 1.2 Basophils % (0.0 - 2.0 %) 0.3 Absolute Granulocytes (1.4 - 6.5 /CUMM) 16.1 H Segmented Neutrophils (42.2 - 75.2 %) 86 H Absolute Lymphocytes (1.2 - 3.4 /CUMM) 0.8 L Lymphocytes (20.5 - 51.1 %) 6 L Monocytes (1.7 - 9.3 %) 6 Absolute Monocytes (0.10 - 0.60 /CUMM) 0.9 H Eosinophils (0 - 5.0 %) 1 Absolute Eosinophils (0.0 - 0.7 /CUMM) 0.2 Basophils (0.0 - 2.0 %) 1 Absolute Basophils (0.0 - 0.2 /CUMM) 0 Platelet Estimate (ADEQUATE) INCREASED Polychromasia 1+ Hypochromic-Microcytic 1+ Poikilocytosis 1+ Ovalocytes 1+ Stomatocytes FEW Other Body Source Fld Total RBCs Counted (%) 100 Assessment/Plan Assessment/Plan 71-year-old woman with a past medical history of hypertension, hyperlipidemia, COPD, Serjio's thyroiditis and prior CVA (with a Medtronic Linq implant to evaluate for paroxysmal atrial fibrillation: Negative to date). She presents to our hospital following a mechanical fall, sustaining a right hip fracture, and requires surgical repair of the same. Hip fracture: Patient presents with a hip fracture secondary to mechanical fall. Given her cardiac history and current capacity to perform greater than 6 METs of physical activity on a regular basis without cardiac symptoms as well as her recent echocardiogram results and Linq interrogation, I believe she may proceed with the upcoming procedure without the need for further preoperative cardiac testing. Her blood pressure has been suboptimally controlled; however, is acceptable for the procedure currently. If needed, IV labetalol may be administered preoperatively or perioperatively for further control (20 mg IV when necessary). Hypertension: The patient currently has suboptimally controlled hypertension; however, on review of her outpatient records, she appears to be better controlled. At this time, we will continue her current medication regimen and further titrate as an outpatient. Linq implantation: The patient has a Medtronic Linq implantation to exclude a cryptogenic source of her prior CVA. This has been unrevealing for arrhythmia to date. No specific precautions will be necessary perioperatively. Thank you for allowing us to participate in the care of your patient. Please do not hesitate to contact us further with any questions. Sincerely, Johnny See MD [facility] Consult Acknowledgment - Thank you for your consult request.
--- NOTE | 2017-10-09 08:23 | PN- Housestaff ---
See Addendum Subjective Follow-up For: R Femur Fx s/p fall Subjective: Pt seen and examined at bedside. Pt lethargic, sleep during exam. Exhibited one word answers. States mild pain to RLE; denies abdominal pain. Denies pain with urination. Per night nurse, pt outputted 150mL in moran, input over 950; moran in place and urine is being produced. Pt encouraged to drink fluids. Pt denied fevers/chills/chest pain/SOB/Abdominal Pain/LE edema S: Patient was found to have flaccid right upper extremity when Physical therapy at bedside eval around 8:30AM, with difficulty finding words, partial response to commands, and appeared to be markedly lethargic compared to her baseline from admission. I was paged to bedside for eval, found vitals stable, BGL 110's; Rapid response and stroke alert was called for assessment at bedside. B: Ms Szymanski is a 71-year-old lady past medical history of hypertension, hyperlipidemia, COPD, diverticulitis, anxiety, depression, Hashimotos thyroiditis and right breast cancer presents after a fall around 9:30 p.m on 10/07. Xray shows R femoral neck fx. Patient was admitted and now s/p OR on 10/08 , uneventful, and had received Dilaudid 0.4mg x 1, and Percocet x 1 for pain control, Keflex x 2 for routine post-OP ABx, and was pending to start Lovenox 40mg sc on 10/09 evening. AR: - Rapid response/stroke alert activated. NIHSS 12 on bedside eval (including flaccid RUE, partial following command, aphasia, see core measures in detail). Dr. Gray (Neurologist) called back and patient case was presented. Non-con head CT and CTA of head and neck were ordered, patient transferred to telemetry under care of Dr. Shore. Pts family notified of event, agreeable with plan. Review of Systems Constitutional: Reports: see HPI. Objective Last 24 Hrs of Vital Signs/I&O Vital Signs Date Time Temp Pulse Resp B/P B/P Pulse O2 O2 Flow FiO2 Mean Ox Delivery Rate 10/09 0404 99.3 87 20 156/80 92 Nasal Cannula 10/09 0011 98.3 79 18 150/86 93 Nasal Cannula 10/09 0000 93 Nasal 3.0L Cannula 10/08 2259 3.0L 10/08 2022 97.8 70 16 120/72 95 Nasal 3.0L Cannula 10/08 1445 97.9 83 20 120/80 92 10/08 0929 Nasal 2.0L Cannula Intake & Output 10/09 1600 10/09 0800 10/09 0000 Intake Total 960 480 Output Total 150 50 Balance 810 430 Intake, IV 600 Intake, Oral 360 480 Number 0 Bowel Movements Output, Urine 150 50 Physical Exam General Appearance: Alert, Cooperative, No Acute Distress Skin Temp/Moisture Exam: Warm/Dry Cardiovascular: Regular Rate, Normal S1, Normal S2 Lungs: Clear to Auscultation, Normal Air Movement Abdomen: Soft, No Tenderness Neurological: Sensation Intact Extremities: No Edema, R hip ORIF; dressing in place Vascular: Normal Pulses Current Medications: Current Medications Sig/Dylan Start time Last Medication Dose Route Stop Time Status Admin Acetaminophen 650 MG Q4P PRN 10/08 1815 AC PO Acetaminophen 325 MG ONCE ONE 10/08 1445 CAN PO 10/08 1446 Bupropion HCl 150 MG DAILY 10/08 899 AC PO Cefazolin Sodium 1,000 MG IQ8 10/09 0000 DC 10/08 IV 10/09 0801 2329 Dextrose/Sodium 1,000 ML Q13H 10/08 1915 AC 10/08 Chloride IV 2009 Enoxaparin Sodium 40 MG QPM 10/09 2100 AC SC Famotidine 20 MG BID 10/08 899 AC 10/08 PO 204 Fentanyl Citrate 200 MCG .STK-MED ONE 10/08 1537 DC IM 10/08 1538 Gabapentin 300 MG AT BEDTIME 10/08 2100 AC 10/08 PO 2044 Hydromorphone HCl 0.4 MG Q4P PRN 10/08 0430 AC 10/08 IV 2225 Ketamine HCl 50 MG .STK-MED ONE 10/08 1557 DC IM 10/08 1558 Levothyroxine Sodium 0.125 MG DAILY AC 10/08 0700 AC 10/09 PO 0536 Losartan Potassium 50 MG DAILY 10/08 1411 AC PO Midazolam HCl 2 MG .STK-MED ONE 10/08 1537 DC IM 10/08 1538 Nadolol 80 MG DAILY 10/08 899 AC 10/08 PO 0816 Ondansetron HCl 4 MG Q6P PRN 10/08 2245 AC 10/08 IV 2238 Ondansetron HCl 4 MG ONCE ONE 10/08 1445 DC 10/08 IV 10/08 1446 1459 Ondansetron HCl 4 MG ONCE ONE 10/08 0900 DC 10/08 IV 10/08 0901 0912 Oxycodone/ 1 TAB Q4P PRN 10/08 1815 AC 10/09 Acetaminophen PO 0410 Oxycodone/ 2 TAB Q4P PRN 10/08 1815 AC Acetaminophen PO Patient Medication 1 ED ONE ONE 10/08 1230 DC Teaching ED 10/08 1231 Pravastatin Sodium 40 MG 1700 10/08 1700 AC 10/08 PO 2045 Sodium Chloride 1,000 ML ONCE ONE 10/08 0230 DC 10/08 IV 10/08 1029 0240 Tranexamic Acid 2,000 MG .STK-MED ONE 10/08 1536 DC IV 10/08 1537 Zolpidem Tartrate 5 MG QPM 10/08 2100 AC 10/08 PO 2045 Assessment/Plan Assessment: Ms Szymanski is a 71-year-old lady past medical history of hypertension, hyperlipidemia, COPD, diverticulitis, anxiety, depression, Hashimotos thyroiditis and right breast cancer presents after a fall around 9:30 p.m. Xray shows R femoral neck fx. #R Femoral Neck Fx -REVISED CARDIAC RISK CLASS I -Not high risk surgery -No history of ischemic heart disease -No history of congestive heart failure -No History of cerebrovascular disease -No Pre-operative treatment with insulin -Pre-operative creatinine <2 -Pt had ORIF last night. No note filed; will f/u on operative note re fluid loss -Appreciate Ortho consult -Appreciate Cardio consult. #HTN Restarted home meds. Will monitor closely. #COPD -Not on oxygen at home. Will monitor for wheezes or exacerbation #RUE flaccid paralysis -Code stroke was called; pt underwent non-con head CT and CTA head/neck. Negative. NIHSS 12. Not a candidate for tPa. Family notified; Transferred to telemetry under care of Dr Shore. Problem List: 1. Closed right hip fracture Pain Ratin Pain Location: R Hip Pain Goal: Pain 4 or less Pain Plan: PRN Tomorrow's Labs & Rationales: na
--- NOTE | 2017-10-09 09:06 | Event Note ---
Event Note Event Note: S: Patient was found to have flaccid right upper extremity when resident Dr. Barrios and Physical therapy at bedside eval around 8:30AM, with difficulty finding words, partial response to commands, and appeared to be markedly lethargic compared to her baseline from admission. Per nursing staff, patient was last seen normal but lethargic around 7:15AM. Rapid response and stroke alert was called for prompt assessment at bedside. B: Ms Szymanski is a 71-year-old lady past medical history of hypertension, hyperlipidemia, COPD, diverticulitis, anxiety, depression, Hashimotos thyroiditis and right breast cancer presents after a fall around 9:30 p.m on 10/07. Xray shows R femoral neck fx. Patient was admitted and now s/p OR on 10/08 , uneventful, and had received Dilaudid 0.4mg x 1, and Percocet x 1 for pain control, Keflex x 2 for routine post-OP ABx, and was pending to start Lovenox 40mg sc on 10/09 evening. AR: - Rapid response/stroke alert activated. NIHSS 12 on bedside eval (including flaccid RUE, partial following command, aphasia, see core measures/stroke alert folder for scoring in detail). - Dr. Gray (Neurologist) called back and patient case was presented. Recommended CT Head without contrast, followed by CTA head/neck to assess if patient would be a candidate for Endarterectomy. tPA was relatively contraindicated due to recent OR event. tPA was not administered at this point pending imaging results (as below). - Patient remained vital signs stable under RA. Transferred to telemetry, updated the family and receiving housestaffs in Telemetry, MOD, and attending Dr. Jaramillo. Update 1030 CT head: Moderate motion degradation. No evidence of hemorrhage or large territorial infarct. Stable chronic microangiopathy and volume loss relative to the prior study of 05/31/2017 CTA Head/Neck 1. No evidence of arterial occlusion or hemodynamically significant stenosis in the head or neck. 2. Slight fullness in the region of the anterior communicating artery, appearing to relate to vessel branching in this locale with a possible 1 mm superimposed infundibulum versus aneurysm projecting anteromedially. 3. No acute intracranial abnormality or abnormal intracranial enhancement is evident. Mild chronic microangiopathy and volume loss, appearing similar to the priors. 4. Chronic inflammatory disease of the paranasal sinuses worse on the left with the suggestion of prior left uncinectomy. 5. Chronic, stable mildly displaced fracture of the right zygoma. 6. Abnormalities within the lung apices including nodular pleural parenchymal scarring, bronchiectasis, parenchymal nodularity, mucous plugging, and some perceived nodular pleural thickening. These findings could be better assessed with CT chest. - After CT imaging and transferred to telemetry, patient had improved rapidly on NIHSS with full 5/5 strength on RUE (compared to 0/5 as above), improved aphasia w/ lingering difficulty finding words however would speak in almost full sentence, improved following of commands, and passed bedside swallow with 2 sips of water without choking/coughing. - Discussed with Dr. See at bedside, that patient had recent Echo done in outpatient setting, no need to repeat Echo for now. Patient also has an implated LINK heart monitor. - Updated Dr. Gray regarding patient's improvement and CT results. - Recommended to start ASA 81mg qd and Lovenox 40mg SC qd now, and will eval for dual-antiplatelet therapy on discharge. - Again, patient would not be a candidate for tPA as she improved markedly upon transfer without interventions, and recent OR event. - Please followup consultants' recommendations including if repeated MRI is needed. Family updated at bedside. Surgery team updated on the transfer. Core Measures/Misc (12/17) Acute Coronary Syndrome ACS Diagnosis: No Congestive Heart Failure Congestive Heart Failure Diagnosis No Cerebrovascular Accident CVA/TIA Diagnosis: Yes NIH Stroke Scale: Total 11 Date Last Known Well: 10/09/17 Time Last Known Well: 714 Symptom Start Date: 10/09/17 Symptom Start Time: 0830 tPA Risk/Benefit discussion I have discussed with the daughter at the bedside regarding that why patient would not be a candidate of tPA administration (recent OR event, rapid improvement on NIHSS) tPA given? No Reason tPA not ordered Medical Contraindication Swallow Evaluation Pass Current/Past Hx AFib/AFlutter No No Antithrombotic d/t Medical Contraindication VTE (View Protocol) VTE Risk Factors Age>40 No Mechanical VTE Prophylaxis d/t N/A MechProphylax Ordered No VTE Pharm Prophylaxis d/t NA PharmProphylax ordered Sepsis (View protocol) Sepsis Present: No If YES complete Sepsis Event Note If YES complete Sepsis Event Note
--- NOTE | 2017-10-09 09:41 | CT SCAN REPORT ---
EXAMINATION: CT HEAD WITHOUT CONTRAST CLINICAL INFORMATION: Sudden onset right arm flaccid paralysis. Confusion. COMPARISON: MRI of the brain from 06/01/2017. Head CT from 05/31/2017. TECHNIQUE: Contiguous axial imaging was performed from the skull base to vertex without intravenous administration of contrast. DLP: 939 mGy-cm FINDINGS: The images are moderately motion degraded. There is no evidence of acute intracranial hemorrhage or large territorial infarction. No abnormal mass effect or midline shift is seen. [place] to white matter differentiation is well preserved. No extra-axial fluid collections are identified. There is mild generalized prominence of the ventricles, sulci, and extra-axial series of spaces. There is mild scattered hypoattenuation in the bihemispheric white matter without convincing change from the prior head CT accounting for motion. No acute osseous abnormality. There is stable opacification of the left ethmoid air cells and sphenoid air cell as well as the partially visualized left maxillary sinus with sclerosis, wall thickening of the left maxillary and sphenoid sinuses, and lateral retraction of the left maxillary medial wall. There is partial opacification of the right ethmoid air cells. IMPRESSION: Moderate motion degradation. No evidence of hemorrhage or large territorial infarct. Stable chronic microangiopathy and volume loss relative to the prior study of 05/31/2017. This critical result was communicated with Dr. Campa at 9:19AM on 10/09/2017 and the content and urgency was understood at the time of direct communication.
--- NOTE | 2017-10-09 10:08 | CT SCAN REPORT ---
EXAMINATION: CT ANGIOGRAM NECK WITH CONTRAST CT ANGIOGRAM BRAIN WITH CONTRAST CLINICAL INFORMATION: Sudden onset right upper extremity flaccid paralysis COMPARISON: Head CTs from 10/09/2017 and 05/31/2017, MRI of the brain from 06/01/2017. CT angiogram from 02/19/2015. TECHNIQUE: Test bolus sequences followed by intravenous administration 95 mL of Optiray 320. Helical imaging was performed in the axial plane from the thoracic inlet to the skull vertex. Delayed postcontrast imaging of the head was also performed. The data was processed at the ophthalmic technologist workstation for generation of MIP sequences. Angled MIPs and volume rendered reformatted images were also generated at an offline 3D workstation. Stenoses are assessed in accordance with NASCET criteria unless otherwise indicated. DLP: 1913 mGy-cm FINDINGS: Nonvascular: Postcontrast imaging through the brain demonstrates no abnormal intracranial enhancement. There is mild chronic microangiopathy and volume loss, fairly similar in configuration to 05/31/2017. No extra-axial collection, mass effect, or shift of the normally midline structures. Within the lung apices there is extensive biapical pleural-parenchymal scarring and scattered areas of fibrosis as well as bronchiectasis and some mucous plugging. There may be some pleural nodularity on the right (series 2 image 32). A chest x-ray of 10/08/2017 demonstrates chronic interstitial lung disease. Findings would be better assessed with dedicated chest CT. No upper mediastinal adenopathy is evident. The thyroid is not well visualized and appears atrophic. No gross abnormalities of the pharyngeal or laryngeal contours. No cervical adenopathy. The parotid and submandibular glands are symmetric in attenuation without focal inflammation. There have been bilateral ocular lens extractions. There is chronic opacification of the left frontal, ethmoid, sphenoid, and maxillary sinuses with sclerosis and thickening of the merrill. There appears to have been prior left uncinectomy. The mastoid air cells and middle ear cavities are clear. There are degenerative changes of the temporomandibular joints. There is a chronic fracture of the right zygoma, unchanged. No acute osseous abnormality. There is mild cervical and upper thoracic spondylosis. No periapical lucencies are convincingly evident. Vascular: The visualized aortic arch demonstrates calcified and noncalcified atheroma without evidence of aneurysmal dilatation. There is conventional branching of the great vessels without hemodynamically significant ostial stenosis. The origin of the right common carotid artery is normal. The proximal subclavian arteries appear bilaterally unremarkable. The origins of both vertebral arteries appear normal. The common carotid arteries are normal in caliber. Minor atherosclerotic calcification at the carotid bulbs without hemodynamically significant stenosis. The cervical internal carotid arteries are normal in caliber. The vertebral arteries appear codominant and normal in their cervical courses. The distal internal carotid arteries appear unremarkable. There is a robust right posterior communicating artery which appears normal. The left posterior communicating artery is not well visualized, a normal variant. The carotid termini appear unremarkable. The MCA complexes are normal in caliber and arborization. The CHAPIN complexes are normal in caliber and arborization, with a hypoplastic right CHAPIN A1 segment, a normal variant. At the anterior communicating artery there is slight perceived fullness to the right of midline, which appears to relate to vessel branching. A 1 mm superimposed outpouching projecting anteromedially may be present (see for example series 2 image 411), possibly a tiny aneurysm or small infundibulum. The intradural vertebral arteries, basilar artery, and vertebrobasilar branches appear normal. There is no evidence of arterial occlusion, significant stenosis, or vascular malformation. The major dural venous sinuses, deep and cortical veins opacify normally as do the jugular bulbs. IMPRESSION: 1. No evidence of arterial occlusion or hemodynamically significant stenosis in the head or neck. 2. Slight fullness in the region of the anterior communicating artery, appearing to relate to vessel branching in this locale with a possible 1 mm superimposed infundibulum versus aneurysm projecting anteromedially. 3. No acute intracranial abnormality or abnormal intracranial enhancement is evident. Mild chronic microangiopathy and volume loss, appearing similar to the priors. 4. Chronic inflammatory disease of the paranasal sinuses worse on the left with the suggestion of prior left uncinectomy. 5. Chronic, stable mildly displaced fracture of the right zygoma. 6. Abnormalities within the lung apices including nodular pleural parenchymal scarring, bronchiectasis, parenchymal nodularity, mucous plugging, and some perceived nodular pleural thickening. These findings could be better assessed with CT chest.
--- NOTE | 2017-10-09 12:08 | PN- Orthopedic ---
See Addendum Subjective Subjective: Pt in bed on tele after RR this morning. Pt says shes very tired. Appears mild SOB, on O2 by nasal canula. pt denies hip pain. Did not get oob with pt this morning due to "Rapid Response" Denies paresthesias Objective Vital Signs and I&Os Vital Signs Date Time Temp Pulse Resp B/P B/P Pulse O2 O2 Flow FiO2 Mean Ox Delivery Rate 10/09 0834 98.4 80 20 148/82 95 Nasal Cannula 10/09 0800 94 Nasal 3.0L Cannula 10/09 0404 99.3 87 20 156/80 92 Nasal Cannula 10/09 0011 98.3 79 18 150/86 93 Nasal Cannula 10/09 0000 93 Nasal 3.0L Cannula 10/08 2259 3.0L 10/08 2021 97.8 70 16 120/72 95 Nasal 3.0L Cannula 10/08 1445 97.9 83 20 120/80 92 Intake & Output 10/09 1600 10/09 0800 10/09 0000 10/08 1600 10/08 0810/08 0000 Intake Total 960 480 375 Output Total 150 50 600 1300 Balance 810 430 -225 -1300 Intake, IV 600 375 Intake, Oral 360 480 Number 0 Bowel Movements Output, Urine 150 50 600 1300 Patient 91 lb 3 oz Weight Weight Bed scale Measurement Method Physical Exam: gen- sleepy resp- mild wheezes on right side cardiac-RRR abd- soft, nt ext- R thigh soft, dressing clean and dry. ABduction pillow between knees. 2+ DP pulse. no edema. distal sensory and motor function intact Current Medications: Current Medications Sig/Dylan Start time Last Medication Dose Route Stop Time Status Admin Acetaminophen 650 MG Q4P PRN 10/08 1815 AC PO Acetaminophen 325 MG ONCE ONE 10/08 1445 CAN PO 10/08 1446 Aspirin 81 MG DAILY 10/09 1030 AC 10/09 PO 1131 Bupropion HCl 150 MG DAILY 10/08 09 AC PO Cefazolin Sodium 1,000 MG IQ8 10/09 0000 DC 10/09 IV 10/09 0801 1131 Dextrose/Sodium 1,000 ML Q13H 10/08 1915 AC 10/09 Chloride IV 1131 Enoxaparin Sodium 40 MG QPM 10/09 2100 DC SC Enoxaparin Sodium 40 MG QPM 10/09 1030 AC SC Famotidine 20 MG BID 10/08 899 AC 10/08 PO 2044 Fentanyl Citrate 200 MCG .STK-MED ONE 10/08 1537 DC IM 10/08 1538 Gabapentin 300 MG AT BEDTIME 10/08 2100 AC 10/08 PO 2044 Hydromorphone HCl 0.4 MG Q4P PRN 10/08 0430 AC 10/08 IV 2225 Ketamine HCl 50 MG .STK-MED ONE 10/08 1557 DC IM 10/08 1558 Levothyroxine Sodium 0.125 MG DAILY AC 10/08 07 AC 10/09 PO 0536 Losartan Potassium 50 MG DAILY 10/08 1411 AC PO Midazolam HCl 2 MG .STK-MED ONE 10/08 1537 DC IM 10/08 1538 Nadolol 80 MG DAILY 10/08 899 AC 10/08 PO 0816 Ondansetron HCl 4 MG Q6P PRN 10/08 2245 AC 10/08 IV 2238 Ondansetron HCl 4 MG ONCE ONE 10/08 1445 DC 10/08 IV 10/08 1446 1459 Oxycodone/ 1 TAB Q4P PRN 10/08 1815 AC 10/09 Acetaminophen PO 0410 Oxycodone/ 2 TAB Q4P PRN 10/08 1815 AC Acetaminophen PO Patient Medication 1 ED ONE ONE 10/08 1230 DC Teaching ED 10/08 1231 Pravastatin Sodium 40 MG 1700 10/08 1700 AC 10/08 PO 2045 Tranexamic Acid 2,000 MG .STK-MED ONE 10/08 1536 DC IV 10/08 1537 Zolpidem Tartrate 5 MG QPM 10/08 2100 AC 10/08 PO 2045 Results Last 48 Hours of Labs: Laboratory Tests 10/08 10/08 0820 0230 Chemistry Sodium (137 - 145 mmol/L) 142 Potassium (3.5 - 5.1 mmol/L) 3.9 Chloride (98 - 107 mmol/L) 102 Carbon Dioxide (22 - 30 mmol/L) 29 Anion Gap (5 - 16) 11 BUN (7 - 17 mg/dL) 22 H Creatinine (0.5 - 1.0 mg/dL) 0.6 Estimated GFR (>60 ml/min) > 60 BUN/Creatinine Ratio (7 - 25 %) 36.7 H Hematology CBC w Diff NO MAN DIFF REQ WBC (4.8 - 10.8 /CUMM) 14.1 H RBC (4.20 - 5.40 /CUMM) 4.26 Hgb (12.0 - 16.0 G/DL) 11.5 L Hct (37 - 47 %) 35.1 L MCV (81.0 - 99.0 FL) 82.2 MCH (27.0 - 31.0 PG) 26.9 L MCHC (33.0 - 37.0 G/DL) 32.7 L RDW (11.5 - 14.5 %) 14.5 Plt Count (130 - 400 /CUMM) 463 H MPV (7.4 - 10.4 FL) 7.4 Gran % (42.2 - 75.2 %) 86.2 H Lymphocytes % (20.5 - 51.1 %) 5.9 L Monocytes % (1.7 - 9.3 %) 6.2 Eosinophils % (0 - 5 %) 1.4 Basophils % (0.0 - 2.0 %) 0.3 Absolute Granulocytes (1.4 - 6.5 /CUMM) 12.2 H Absolute Lymphocytes (1.2 - 3.4 /CUMM) 0.8 L Absolute Monocytes (0.10 - 0.60 /CUMM) 0.9 H Absolute Eosinophils (0.0 - 0.7 /CUMM) 0.2 Absolute Basophils (0.0 - 0.2 /CUMM) 0 Urines Urine Color (YEL,AMB,STR) STRAW Urine Clarity (CLEAR) HAZY H Urine pH (5.0 - 8.0) 7.0 Ur Specific [place] (1.001 - 1.035) 1.015 Urine Protein (NEG,<30 MG/DL) 30 H Urine Ketones (NEG) NEG Urine Nitrite (NEG) NEG Urine Bilirubin (NEG) NEG Urine Urobilinogen (0.1 - 1.0 EU/dl) 0.2 Ur Leukocyte Esterase (NEG) TRACE H Ur Microscopic SEDIMENT EXAMINED Urine RBC (0 - 5 /HPF) 3-5 Urine WBC (0 - 2 /HPF) 1-3 H Ur Epithelial Cells (NONE,FEW) FEW Urine Bacteria (NEG/NONE) RARE H Urine Mucus (FEW,NONE) FEW Urine Hemoglobin (NEG) TRACE-INTACT Urine Glucose (N MG/DL) NEG 10/08 10/08 0130 0129 Chemistry Sodium (137 - 145 mmol/L) 141 Potassium (3.5 - 5.1 mmol/L) 3.9 Chloride (98 - 107 mmol/L) 98 Carbon Dioxide (22 - 30 mmol/L) 28 Anion Gap (5 - 16) 15 BUN (7 - 17 mg/dL) 23 H Creatinine (0.5 - 1.0 mg/dL) 0.6 Estimated GFR (>60 ml/min) > 60 BUN/Creatinine Ratio (7 - 25 %) 38.3 H Glucose (65 - 99 mg/dL) 117 H Calcium (8.4 - 10.2 mg/dL) 9.8 Total Bilirubin (0.2 - 1.3 mg/dL) 0.5 AST (14 - 36 U/L) 33 ALT (9 - 52 U/L) 35 Alkaline Phosphatase (<127 U/L) 96 Troponin I (< 0.11 ng/ml) < 0.01 Total Protein (6.3 - 8.2 g/dL) 8.1 Albumin (3.5 - 5.0 g/dL) 4.1 Globulin (1.9 - 4.2 gm/dL) 4.0 Albumin/Globulin Ratio (1.1 - 2.2 %) 1.0 L Free T4 (0.78 - 2.44 ng/dL) 1.75 Total T3 (0.97 - 1.69 ng/mL) 1.17 TSH &T3 &Free T4 Intrp (0.270 - 4.20 uIU/mL) 7.600 H Cancelled Coagulation PT (9.4 - 12.5 SEC) 12.3 INR (0.90 - 1.19) 1.13 APTT (25 - 37 SEC) 27 Hematology CBC w Diff MAN DIFF ORDERED WBC (4.8 - 10.8 /CUMM) 18.1 H RBC (4.20 - 5.40 /CUMM) 4.97 Hgb (12.0 - 16.0 G/DL) 13.4 Hct (37 - 47 %) 41.2 MCV (81.0 - 99.0 FL) 82.8 MCH (27.0 - 31.0 PG) 26.9 L MCHC (33.0 - 37.0 G/DL) 32.5 L RDW (11.5 - 14.5 %) 14.3 Plt Count (130 - 400 /CUMM) 544 H MPV (7.4 - 10.4 FL) 7.0 L Gran % (42.2 - 75.2 %) 89.2 H Lymphocytes % (20.5 - 51.1 %) 4.5 L Monocytes % (1.7 - 9.3 %) 4.8 Eosinophils % (0 - 5 %) 1.2 Basophils % (0.0 - 2.0 %) 0.3 Absolute Granulocytes (1.4 - 6.5 /CUMM) 16.1 H Segmented Neutrophils (42.2 - 75.2 %) 86 H Absolute Lymphocytes (1.2 - 3.4 /CUMM) 0.8 L Lymphocytes (20.5 - 51.1 %) 6 L Monocytes (1.7 - 9.3 %) 6 Absolute Monocytes (0.10 - 0.60 /CUMM) 0.9 H Eosinophils (0 - 5.0 %) 1 Absolute Eosinophils (0.0 - 0.7 /CUMM) 0.2 Basophils (0.0 - 2.0 %) 1 Absolute Basophils (0.0 - 0.2 /CUMM) 0 Platelet Estimate (ADEQUATE) INCREASED Polychromasia 1+ Hypochromic-Microcytic 1+ Poikilocytosis 1+ Ovalocytes 1+ Stomatocytes FEW Other Body Source Fld Total RBCs Counted (%) 100 Assessment/Plan Assessment/Plan 71yo F with hx of htn, hld and copd now SP Right hip hemiarthroplasty POD1. Pt had a RR this morning which is probably due to a TIA. cardiology and Neurology is following. From ortho standpoint: PT- WBAT w RW. Posterior hip precautions with pillow between knees dvt ppx- lovenox and alps pain management dressing change POD2, reinforce as needed for now FU with Dr wong in 2 weeks as outpt Will discuss with Dr. Wong
--- NOTE | 2017-10-09 16:52 | Cons- Neurology ---
General Information and HPI Consulting Request Date of Consult: 10/09/17 Requested By: Toña Jaramillo MD Reason for Consult: Stroke alert Source of Information: old records, Resident MD Exam Limitations: clinical condition History of Present Illness: 71-year-old woman admitted yesterday with a mechanical fall resulting in a right hip fracture and underwent ORIF yesterday. This AM rapid response called due to confusion, difficulty finding words, last seen normal around 7:15 AM. And inability to move the right side, arm or leg. Emergent CT scan revealed no bleed, CTA disclosed no thrombus or significant stenosis and the patient improved rapidly regaining normal power on the right arm and some movement in speech. TPA contraindicated by surgery yesterday. At this time there is a moderately severe expressive aphasia and some recurrence of right side weakness, 4/5 on the right arm. Blood pressure has remained stable, minimum 120/80. prior CVA (with a Medtronic Linq implant to evaluate for paroxysmal atrial fibrillation: Negative to date. Was on aspirin and pravastatin 40 mg according to admission medication list. Allergies/Medications Allergies: Coded Allergies: azithromycin (Intermediate, HIGH BP 10/08/17) carisoprodol (From Soma) (Intermediate, MAKES ME DRUNK 10/08/17) Home Med List: Aspirin (Ecotrin*) 81 MG TABLET.DR 81 MG PO DAILY heart . Bupropion HCl (Bupropion XL) 150 MG TAB.ER.24H 1 TAB PO DAILY MENTAL HEALTH ( Reported) Famotidine 20 MG TABLET 1 TAB PO BID GI (Reported) Gabapentin 300 MG CAPSULE 300 MG PO AT BEDTIME ANXIETY AND SLEEP Ibandronate Sodium (Boniva) 150 MG TABLET 1 TAB PO Q30D BONE (Reported) on the same date with a full glass of water at least 30 minutes before first food or drink of the day; remain in an upright posi Ipratropium [place] 21 MCG (0.03 %) SPRAY 2 SPRAY NASB BID RHINITIS (Reported ) Levothyroxine Sodium (Synthroid) 125 MCG TABLET 0.125 MG PO DAILY AC THYROID Nadolol (Corgard) 80 MG TABLET 1 TAB PO DAILY HEART (Reported) Olmesartan/Hydrochlorothiazide (Benicar Hct 20-12.5 MG Tablet) 20 MG-12.5 MG TABLET 1 TAB PO DAILY HEART (Reported) Pravastatin Sodium (Pravachol) 40 MG TABLET 1 TAB PO DAILY CHOLESTEROL ( Reported) Zolpidem Tartrate 10 MG TABLET 5 MG PO QPM SLEEP (Reported) Current Medications: Current Medications Sig/Dylan Start time Last Medication Dose Route Stop Time Status Admin Acetaminophen 650 MG Q4P PRN 10/08 1815 AC PO Aspirin 81 MG DAILY 10/09 1030 AC 10/09 PO 1131 Bupropion HCl 150 MG DAILY 10/08 899 AC PO Cefazolin Sodium 1,000 MG IQ8 10/09 0000 DC 10/09 IV 10/09 0801 1131 Dextrose/Sodium 1,000 ML Q20H 10/09 2200 AC Chloride IV 10/10 1759 Dextrose/Sodium 1,000 ML Q13H 10/08 1915 AC 10/09 Chloride IV 1131 Enoxaparin Sodium 40 MG QPM 10/09 2100 DC SC Enoxaparin Sodium 40 MG QPM 10/09 1030 AC 10/09 SC 1227 Famotidine 20 MG BID 10/08 09 AC 10/08 PO 2044 Gabapentin 300 MG AT BEDTIME 10/08 2100 AC 10/08 PO 2044 Hydromorphone HCl 0.4 MG Q4P PRN 10/08 0430 DC 10/08 IV 2225 Levothyroxine Sodium 0.125 MG DAILY AC 10/08 07 AC 10/09 PO 0536 Losartan Potassium 50 MG DAILY 10/08 1411 AC PO Nadolol 80 MG DAILY 10/08 899 AC 10/08 PO 0816 Ondansetron HCl 4 MG Q6P PRN 10/08 2245 AC 10/08 IV 2238 Oxycodone/ 1 TAB Q4P PRN 10/08 1815 AC 10/09 Acetaminophen PO 0410 Oxycodone/ 2 TAB Q4P PRN 10/08 1815 DC Acetaminophen PO Pravastatin Sodium 40 MG 1700 10/08 1700 AC 10/08 PO 2045 Zolpidem Tartrate 5 MG QPM 10/08 2100 AC 10/08 PO 2045 Review of Systems Review of Systems: Unobtainable due to a fascia Past History Travel History Traveled to [place] past 21 day No Medical History Blood Transfusion Hx: Yes Neurological: migraine EENT: cataracts, Sinus headaches Cardiovascular: hypertension, hyperlipidemia Respiratory: COPD Gastrointestinal: DIVERTICULITIS Musculoskeletal: OSTEOPOROSIS Psychiatric: anxiety, depression Endocrine: Serjio's thyroiditis Blood Disorders: anemia Cancer(s): R BREAST CA Surgical History Surgical History: lumpectomy (R), Sinus surgery Family History Relations & Conditions If Any: MOTHER FATHER FHx: hypertension SISTER FHx: breast cancer BROTHER FH: myocardial infarction FHx: liver cancer Psychosocial History Where Do You Live? Home Who Do You Live With? self Services at Home: None Smoking Status: Never Smoked ETOH Use: denies use Illicit Drug Use: denies illicit drug use Functional Ability ADLs Independent: dressing, eating, toileting, bathing. Ambulation: independent IADLs Independent: shopping, housework, finances, food prep, telephone, transportation , medication admin. Exam & Diagnostic Data Vital Signs and I&O Vital Signs Date Time Temp Pulse Resp B/P B/P Pulse O2 O2 Flow FiO2 Mean Ox Delivery Rate 10/09 1521 98.5 86 18 120/80 97 10/09 1516 98.5 86 18 120/80 97 Nasal 4.0L Cannula 10/09 1225 98.4 84 18 140/80 96 Nasal 4.0L Cannula 10/09 1224 98.3 85 20 158/90 94 Nasal 4.0L Cannula 10/09 0930 94 Nasal 4.0L Cannula 10/09 0834 98.4 80 20 148/82 95 Nasal Cannula 10/09 0800 94 Nasal 3.0L Cannula 10/09 0404 99.3 87 20 156/80 92 Nasal Cannula 10/09 0011 98.3 79 18 150/86 93 Nasal Cannula 10/09 0000 93 Nasal 3.0L Cannula 10/08 2259 3.0L 10/08 2022 97.8 70 16 120/72 95 Nasal 3.0L Cannula Intake & Output 10/09 1600 10/09 0800 10/09 0000 Intake Total 960 480 Output Total 450 150 50 Balance -450 810 430 Intake, IV 600 Intake, Oral 360 480 Number 0 Bowel Movements Output, Urine 450 150 50 Physical Exam: Restless, appears uncomfortable, good skin color No carotid bruits or cardiac murmur, peripheral pulses intact, regular rhythm Awake, moderately severe expressive aphasia, dense anomia, some perseveration, some difficulty following commands as well. Unable to adequately test for visual field cut Pupils midsize equal round and reactive, eye movements appear conjugate and full Reduced right nasolabial fold Right 4/5 upper extremity power with rapid downward drift, handgrip somewhat weaker on right as well Right leg power not tested due to recent surgery, patient was able to move the foot somewhat. Tendon reflexes hypoactive, right Babinski sign present Response to touch both sides Unable to test cerebellar or gait functions due to clinical condition Last 48 Hours of Lab Results: Laboratory Tests 10/08 10/08 0820 0230 Chemistry Sodium (137 - 145 mmol/L) 142 Potassium (3.5 - 5.1 mmol/L) 3.9 Chloride (98 - 107 mmol/L) 102 Carbon Dioxide (22 - 30 mmol/L) 29 Anion Gap (5 - 16) 11 BUN (7 - 17 mg/dL) 22 H Creatinine (0.5 - 1.0 mg/dL) 0.6 Estimated GFR (>60 ml/min) > 60 BUN/Creatinine Ratio (7 - 25 %) 36.7 H Hematology CBC w Diff NO MAN DIFF REQ WBC (4.8 - 10.8 /CUMM) 14.1 H RBC (4.20 - 5.40 /CUMM) 4.26 Hgb (12.0 - 16.0 G/DL) 11.5 L Hct (37 - 47 %) 35.1 L MCV (81.0 - 99.0 FL) 82.2 MCH (27.0 - 31.0 PG) 26.9 L MCHC (33.0 - 37.0 G/DL) 32.7 L RDW (11.5 - 14.5 %) 14.5 Plt Count (130 - 400 /CUMM) 463 H MPV (7.4 - 10.4 FL) 7.4 Gran % (42.2 - 75.2 %) 86.2 H Lymphocytes % (20.5 - 51.1 %) 5.9 L Monocytes % (1.7 - 9.3 %) 6.2 Eosinophils % (0 - 5 %) 1.4 Basophils % (0.0 - 2.0 %) 0.3 Absolute Granulocytes (1.4 - 6.5 /CUMM) 12.2 H Absolute Lymphocytes (1.2 - 3.4 /CUMM) 0.8 L Absolute Monocytes (0.10 - 0.60 /CUMM) 0.9 H Absolute Eosinophils (0.0 - 0.7 /CUMM) 0.2 Absolute Basophils (0.0 - 0.2 /CUMM) 0 Urines Urine Color (YEL,AMB,STR) STRAW Urine Clarity (CLEAR) HAZY H Urine pH (5.0 - 8.0) 7.0 Ur Specific [place] (1.001 - 1.035) 1.015 Urine Protein (NEG,<30 MG/DL) 30 H Urine Ketones (NEG) NEG Urine Nitrite (NEG) NEG Urine Bilirubin (NEG) NEG Urine Urobilinogen (0.1 - 1.0 EU/dl) 0.2 Ur Leukocyte Esterase (NEG) TRACE H Ur Microscopic SEDIMENT EXAMINED Urine RBC (0 - 5 /HPF) 3-5 Urine WBC (0 - 2 /HPF) 1-3 H Ur Epithelial Cells (NONE,FEW) FEW Urine Bacteria (NEG/NONE) RARE H Urine Mucus (FEW,NONE) FEW Urine Hemoglobin (NEG) TRACE-INTACT Urine Glucose (N MG/DL) NEG 10/08 10/08 0130 0129 Chemistry Sodium (137 - 145 mmol/L) 141 Potassium (3.5 - 5.1 mmol/L) 3.9 Chloride (98 - 107 mmol/L) 98 Carbon Dioxide (22 - 30 mmol/L) 28 Anion Gap (5 - 16) 15 BUN (7 - 17 mg/dL) 23 H Creatinine (0.5 - 1.0 mg/dL) 0.6 Estimated GFR (>60 ml/min) > 60 BUN/Creatinine Ratio (7 - 25 %) 38.3 H Glucose (65 - 99 mg/dL) 117 H Calcium (8.4 - 10.2 mg/dL) 9.8 Total Bilirubin (0.2 - 1.3 mg/dL) 0.5 AST (14 - 36 U/L) 33 ALT (9 - 52 U/L) 35 Alkaline Phosphatase (<127 U/L) 96 Troponin I (< 0.11 ng/ml) < 0.01 Total Protein (6.3 - 8.2 g/dL) 8.1 Albumin (3.5 - 5.0 g/dL) 4.1 Globulin (1.9 - 4.2 gm/dL) 4.0 Albumin/Globulin Ratio (1.1 - 2.2 %) 1.0 L Free T4 (0.78 - 2.44 ng/dL) 1.75 Total T3 (0.97 - 1.69 ng/mL) 1.17 TSH &T3 &Free T4 Intrp (0.270 - 4.20 uIU/mL) 7.600 H Cancelled Coagulation PT (9.4 - 12.5 SEC) 12.3 INR (0.90 - 1.19) 1.13 APTT (25 - 37 SEC) 27 Hematology CBC w Diff MAN DIFF ORDERED WBC (4.8 - 10.8 /CUMM) 18.1 H RBC (4.20 - 5.40 /CUMM) 4.97 Hgb (12.0 - 16.0 G/DL) 13.4 Hct (37 - 47 %) 41.2 MCV (81.0 - 99.0 FL) 82.8 MCH (27.0 - 31.0 PG) 26.9 L MCHC (33.0 - 37.0 G/DL) 32.5 L RDW (11.5 - 14.5 %) 14.3 Plt Count (130 - 400 /CUMM) 544 H MPV (7.4 - 10.4 FL) 7.0 L Gran % (42.2 - 75.2 %) 89.2 H Lymphocytes % (20.5 - 51.1 %) 4.5 L Monocytes % (1.7 - 9.3 %) 4.8 Eosinophils % (0 - 5 %) 1.2 Basophils % (0.0 - 2.0 %) 0.3 Absolute Granulocytes (1.4 - 6.5 /CUMM) 16.1 H Segmented Neutrophils (42.2 - 75.2 %) 86 H Absolute Lymphocytes (1.2 - 3.4 /CUMM) 0.8 L Lymphocytes (20.5 - 51.1 %) 6 L Monocytes (1.7 - 9.3 %) 6 Absolute Monocytes (0.10 - 0.60 /CUMM) 0.9 H Eosinophils (0 - 5.0 %) 1 Absolute Eosinophils (0.0 - 0.7 /CUMM) 0.2 Basophils (0.0 - 2.0 %) 1 Absolute Basophils (0.0 - 0.2 /CUMM) 0 Platelet Estimate (ADEQUATE) INCREASED Polychromasia 1+ Hypochromic-Microcytic 1+ Poikilocytosis 1+ Ovalocytes 1+ Stomatocytes FEW Other Body Source Fld Total RBCs Counted (%) 100 Imaging/Other Studies: CT head, CTA head and neck: 1. No evidence of arterial occlusion or hemodynamically significant stenosis in the head or neck. 2. Slight fullness in the region of the anterior communicating artery, appearing to relate to vessel branching in this locale with a possible 1 mm superimposed infundibulum versus aneurysm projecting anteromedially. 3. No acute intracranial abnormality or abnormal intracranial enhancement is evident. Mild chronic microangiopathy and volume loss, appearing similar to the priors. Assessment/Plan Assessment: Stroke, left hemispheric, MCA pattern, occurred one day after hip surgery Hypercoagulable state may be present Consider possibility of paradoxical emboli TPA contraindicated and no thrombus found which would have been amenable to endovascular treatment Recommendations: Echocardiogram, Interrogate linq monitor Continue Enoxaparin Aspirin has been resumed Recommend addition of Plavix 75 mg p.o. daily once able to swallow Speech therapy and swallowing evaluation OT and PT consultations as well Hold oral antihypertensive medications and follow blood pressure, prefer blood pressure back up in the 140-160 range to assure cerebral perfusion Consult Acknowledgment - Thank you for your consult request.
[2017-10-10 06:21] VITALS: BP 136/68
--- NOTE | 2017-10-10 06:56 | PN- Housestaff ---
Kelsea Shore 10/10/17 0655: Subjective Follow-up For: TIA Tele-Events Since Last Visit: NSR, HR 84 Subjective: Patient seen and examined at bedside this morning. She continues to have expressive aphasia and right sided weakness. She was bothered by light this morning but was alert to voice and commands. Patient did not verbalize place and time. Patient failed swallow evaluation today. On IV fluids. Will give aspirin rectally and levothyroxine through IV. Review of Systems Constitutional: Denies: see HPI. Objective Last 24 Hrs of Vital Signs/I&O Vital Signs Date Time Temp Pulse Resp B/P B/P Pulse O2 O2 Flow FiO2 Mean Ox Delivery Rate 10/10 1257 Nasal 2.0L Cannula 10/10 0621 98.4 83 24 136/68 97 Nasal 3.5L Cannula 10/10 0000 Nasal 3.5L Cannula 10/09 2258 98.4 87 18 144/70 96 Nasal Cannula 10/09 1600 Nasal 2.0L Cannula 10/09 1521 98.5 86 18 120/80 97 10/09 1516 98.5 86 18 120/80 97 Nasal 4.0L Cannula Intake & Output 10/10 1600 10/10 0800 10/10 0000 Intake Total 600 600 Output Total 225 200 Balance 375 400 Intake, IV 600 600 Output, Urine 225 200 Physical Exam General Appearance: Alert, Cooperative, Mild Distress, Does not fully follow commands; minimally verbal; mild expressive aphasia HEENT: PERRLA, EOMI, Mucous Membr. moist/pink Cardiovascular: Normal S1, Normal S2 Lungs: Clear to Auscultation, Normal Air Movement Neurological: Strength 3/5 right upper extremity; 4/5 left upper extremity Patients sensation intact and able to move all extremities on command Reflexes hyporeflective Gait unassessed as per femoral fractor Cranial nerves not able to be examined Extremities: No Clubbing, No Cyanosis, No Edema Current Medications: Current Medications Sig/Dylan Start time Last Medication Dose Route Stop Time Status Admin Acetaminophen 650 MG Q4P PRN 10/08 1815 AC PO Aspirin 300 MG DAILY 10/10 1200 AC 10/10 RI 1312 Aspirin 81 MG DAILY 10/09 1030 AC 10/09 PO 1131 Bupropion HCl 150 MG DAILY 10/08 899 AC PO Clopidogrel Bisulfate 75 MG DAILY 10/10 899 AC PO Dextrose/Sodium 1,000 ML Q20H 10/09 2200 CAN Chloride IV 10/10 1759 Dextrose/Sodium 1,000 ML Q13H 10/09 2030 AC 10/10 Chloride IV 1053 Dextrose/Sodium 1,000 ML Q13H 10/08 1915 DC 10/09 Chloride IV 1131 Enoxaparin Sodium 40 MG QPM / 1030 10/09 SC 202 Famotidine 20 MG BID 10/08 09 AC 10/08 PO 204 Gabapentin 300 MG AT BEDTIME 10/08 2100 10/08 PO 204 Hydromorphone HCl 0.4 MG Q4P PRN 10/08 0430 DC 10/08 IV 2225 Levothyroxine Sodium 62.5 MCG DAILY AC 10/10 1131 AC 10/10 IV 1311 Levothyroxine Sodium 0.125 MG DAILY AC 10/08 07 DC 10/09 PO 0536 Losartan Potassium 50 MG DAILY 10/08 1411 DC PO Morphine Sulfate 2 MG Q6P PRN 10/09 2030 10/10 IV 0339 Nadolol 80 MG DAILY 10/08 899 DC 10/08 PO 0816 Ondansetron HCl 4 MG Q6P PRN 10/08 2245 10/08 IV 2238 Oxycodone/ 1 TAB Q4P PRN 10/08 1815 DC 10/09 Acetaminophen PO 0410 Oxycodone/ 2 TAB Q4P PRN 10/08 1815 DC Acetaminophen PO Patient Medication 1 ED ONE ONE 10/09 1715 DC Teaching ED 10/09 1716 Pravastatin Sodium 40 MG 1700 10/08 1700 10/08 PO 204 Zolpidem Tartrate 5 MG QPM 10/08 2100 10/08 PO 2045 Last 24 Hrs of Lab/Eddi Results Last 24 Hrs of Labs/Mics: Laboratory Tests 10/10/17 0614: Anion Gap 9, Estimated GFR > 60, BUN/Creatinine Ratio 24.0, Hemoglobin A1c 6.2 H, Triglycerides 89, Cholesterol 99, LDL Cholesterol, Calc 51 L, HDL Cholesterol 31 L, Cholesterol/HDL Ratio 3, CBC w Diff NO MAN DIFF REQ, RBC 3.47 L, MCV 83.2, MCH 27.1, MCHC 32.6 L, RDW 14.4, MPV 7.3 L, Gran % 84.3 H, Lymphocytes % 4.7 L, Monocytes % 10.3 H, Eosinophils % 0.6, Basophils % 0.1, Absolute Granulocytes 9.6 H, Absolute Lymphocytes 0.5 L, Absolute Monocytes 1.2 H, Absolute Eosinophils 0.1, Absolute Basophils 0 Assessment/Plan Assessment: A/P: Patient is a 71 year old female with past medical history of hypertension, hyperlipidemia, COPD, diverticulitis, anxiety, depression, Hashimotos thyroiditis and right breast cancer. Patient had a fall prior to admission leading to right femoral fracture. Post op right hemiarthorplasty day 2 Failed swallow evaluation 10/10. Patient for rehab when stable. Problem List: 1. TIA 2. Status post R. femoral hip rafal 3. Hashimotos Thyroiditis TIA * Continued right side weakness and expressive aphasia * Failed swallow evaluation * Aspirin changed to rectal * monitor blood pressure to allow permissive HTN as per neurology recommendations * Follow up ECHO * patient medtronic Linq implantation interrogated;; no unrevealing for arrhythmia to date * continue telemetry monitoring since admission * appreciate PT evaluation; rehab facility when stable; will speak to family * Hba1C:6.2; Lipid panel: T; Cholestrol: 99; LDL 51: HDL:31 HYPOTHYROIDISM * levothyroxine to IV SEVERE PROTEIN MALNUTRITION * patient currently failed swallow evaluation; will re-evaluate tomorrow * nutrition will be consulted once able to swallow * BMI 15.7 kg/m2 * IV fluids D5 1/2NS 75ml/hr Appreciate PT evaluation: short term rehab vs AR if able to increase participation in therapy; goals discussed with patients family Code Status: Full Code DVT PPx: Diet: NPO failed swallow evaluation; IV fluids Pain: IV morphine q6 PRN Problem List: 1. Closed right hip fracture 2. Hypothyroidism 3. Syncope Pain Ratin Pain Location: Right Hip Pain Goal: Pain 4 or less Pain Plan: As per pain pathway Tomorrow's Labs & Rationales: CBC BEP DVT/Prophylaxis: pharmacological Toña Jaramillo 10/10/17 1131: Attending MD Review Statement Attending Statement Attending MD Statement: examined this patient, discuss w/resident/PA/INVESTMENT FUND MANAGER, agreed w/resident/PA/INVESTMENT FUND MANAGER, discussed with family, reviewed EMR data (avail), discussed with nursing, discussed with case mgmt Attending Assessment/Plan: d/w pts mark cisneros at bedside the care plan. Stroke- with rt side weakness and expressive aphasia- will change asa to rectal as pt not able to take po for now. will cont to monitor her bp and will allow permissive htn. will f/u on neuro recommendations. Hypothyroidism- will change levo to iv as pt npo. PT eval Dysphagia- currently npo. will get speech to reevaluate.
[2017-10-10 08:38] LABS: ABSOLUTE BASOPHIL COUNT 0 /CUMM (0.0-0.2); ABSOLUTE EOSINOPHIL COUNT 0.1 /CUMM (0.0-0.7); ABSOLUTE GRANULOCYTE CT 9.6 /CUMM (1.4-6.5); ABSOLUTE LYMPH COUNT 0.5 /CUMM (1.2-3.4); ABSOLUTE MONOCYTE COUNT 1.2 /CUMM (0.10-0.60); BASOPHIL % 0.1 % (0.0-2.0); EOSINOPHIL % 0.6 % (0-5); GRANULOCYTE % 84.3 % (42.2-75.2); MEAN CORPUSCULAR HGB 27.1 PG (27.0-31.0); MEAN CORPUSCULAR HGB CONC 32.6 G/DL (33.0-37.0); MEAN CORPUSCULAR VOLUME 83.2 FL (81.0-99.0); MEAN PLATELET VOLUME 7.3 FL (7.4-10.4); PLATELET COUNT 311 /CUMM (130-400); RBC DISTRIBUTION WIDTH 14.4 % (11.5-14.5); RED BLOOD CELL CT 3.47 /CUMM (4.20-5.40)
--- NOTE | 2017-10-10 08:50 | Operative Report ---
Operative/Inv Procedure Report Surgery Date: 10/08/17 Name of Procedure: Right hip hemiarthroplasty Pre-Operative Diagnosis: Displaced right femoral neck hip fracture Post-Operative Diagnosis: same Estimated Blood Loss: 50ml to 100ml Surgeon/Steersman: Tony Wong MD, PATRICK Polanco Anesthesia: general endotracheal tube Implants: [place] accolade cemented femoral stem size 4, 48 unipolar head, neutral standard collar Drains: None Specimens: Femoral head Complications: None Condition: Stable Operative Indication: Patient is a 71-year-old woman who fell at home injuring her right hip. She was found to have a displaced femoral neck hip fracture. She was admitted to medical service for medical clearance for recommended right hip surgery. We discussed the findings with patient including recommendations concerning hemiarthroplasty versus total hip arthroplasty. After discussion of risks benefits and expectations of both procedures, decision was made to proceed with a hemiarthroplasty. Risks, benefits and expectations of this procedure were discussed which included but were not limited to persistent hip pain, need for subsequent surgery, infection, DVT, injury to blood vessel or nerve, anesthesia risks, leg length discrepancy dislocation. She wished to proceed with the hemiarthroplasty procedure Operative/Procedure Note Note: Patient was brought to the operating room and transferred to the operating table. Once under appropriate anesthesia the patient was placed into a left lateral decubitus position with right side up. All bony prominences were well- padded. The right lower extremity was prepped and draped in standard fashion. Preoperative IV antibiotics were given prophylactically. A standard lateral incision was made for anticipated superior approach to the hip. The incision was taken down sharply to the underlying fascia. Fascia was incised in line with the skin incision. The hip was internally rotated placing the external rotators on tension. The piriformis was identified and reflected posteriorly. The retractors were placed underneath the gluteus minimus tendon and inferiorly to the femoral neck. A T-incision was made in the capsule and the inferior and superior flaps of the posterior capsule were tagged and reflected posteriorly for later repair. The hip was visualized. A large hemarthrosis was evacuated. Comminution of the femoral neck was identified. These comminuted fragments were removed. The fracture itself was a high femoral neck and therefore a femoral neck cut was needed to remove the femoral head from the acetabular fossa. This was done in standard fashion protecting the soft tissues. I then removed the femoral head and measured it to a size 48. I uses trial 48 femoral head and confirmed the sizing. The acetabulum was found to be intact. No major change degenerative changes. The labrum was found to be intact. I then exposed the proximal femur and placed retractors underneath and inferior. A box osteotome used to was used to lateralize my insertion site. I then used a canal finder followed by broaching up to a size 4 cemented. The bone itself was fairly osteopenic and I did not feel a uncemented stem would do well. After leaving the last broach in place I did a trial reduction. I was satisfied with the stability of the hip. I was satisfied with hindu of leg lengths. His rotation was removed from the hip copious irrigation of the femoral canal followed. I use a cement restrictor down the distal canal. I used the suction/ tampon device to dry the canal as the cement was being mixed on the back table. Once the cement was ready it was inserted into the femoral canal pressurized properly and then the definitive size 4 Accolade fracture stem was impacted in place and excess cement was removed with curettes. The stem was held in place until cement hardened completely. I then constructed the hemiarthroplasty with the neutral neck which was trialed previously this was done after drying the trunnion. The femoral head was also impacted in place and the hip was reduced. Again stability was confirmed. No evidence of anterior instability with simultaneous extension and external rotation. No evidence of posterior instability with simultaneous adduction internal rotation and flexion to greater than 90. After copious irrigation I then closed the T incision in the capsule with interrupted #1 Vicryl suture.. Every level of closure was followed by copious irrigation. Fascia was closed with a running #1 Vicryl suture. Subcutaneous tissues closed in 2 layers with 2-0 Vicryl and skin was closed with rimma. Appropriate dressings were applied and patient was awakened and taken the recovery room in good condition. No intraoperative complications. Blood loss was less than 100 mL Discharge Disposition: PACU
[2017-10-10 09:15] LABS: HEMATOCRIT 28.9 % (37-47)
--- NOTE | 2017-10-10 09:21 | PN- Orthopedic ---
See Addendum Subjective Subjective: Events of yesterday noted. Pt c/o pain to surgical site when tape removed but otherwise offered no complaints. Was not conversant. Objective Vital Signs and I&Os Vital Signs Date Time Temp Pulse Resp B/P B/P Pulse O2 O2 Flow FiO2 Mean Ox Delivery Rate 10/10 0621 98.4 83 24 136/68 97 Nasal 3.5L Cannula 10/10 0000 Nasal 3.5L Cannula 10/09 2258 98.4 87 18 144/70 96 Nasal Cannula 10/09 1600 Nasal 2.0L Cannula 10/09 1521 98.5 86 18 120/80 97 10/09 1516 98.5 86 18 120/80 97 Nasal 4.0L Cannula 10/09 1225 98.4 84 18 140/80 96 Nasal 4.0L Cannula 10/09 1224 98.3 85 20 158/90 94 Nasal 4.0L Cannula 10/09 0930 94 Nasal 4.0L Cannula Intake & Output 10/10 1600 10/10 0800 10/10 0000 10/09 1600 10/09 0800 10/09 0000 Intake Total 600 600 960 480 Output Total 225 200 450 150 50 Balance 375 400 -450 810 430 Intake, IV 600 600 600 Intake, Oral 360 480 Number 0 Bowel Movements Output, Urine 225 200 450 150 50 Physical Exam: General: Lethargic, responds to verbal and painful stimuli (dressing change), not coversant Cardiac: RRR, s1s2 Pulm: Non-labored respiratory effort, nasal cannula, bilateral lung sounds clear Abd: Non-tender, non-distended Extremities: Moves all extremities. Right thigh soft, tender to palpation. Dressing dry and intact. Bilateral calves soft and nontender Assessment/Plan Assessment/Plan This is a 71 year old female, POD 2, s/p R hip hemiarthroplasty. Rapid response one day ago for flaccid right upper extremity and mental status change. Questionable TIA, tpa not given due to surgical contraindication, pt improved. -Continue primary management per medicine team -Appreciate neurology recommendations -Lovenox 40 daily per ortho recommendations, also asa 81 mg daily per med recommendations -Weight bearing as tolerated -Posterior hip precautions in place -Daily dry dressing changes
[2017-10-10 10:20] LABS: WHITE BLOOD CELL COUNT 11.3 /CUMM (4.8-10.8)
--- NOTE | 2017-10-10 11:28 | PN- Cardiology ---
Subjective Subjective: The patient is awake, more alert than yesterday; however, still lethargic and minimally communicating The events of the last 24 hours as well as telemetry were reviewed. Review of Systems: The review of systems is negative for chest pains, palpitations nor lightheadedness. The remainder of the 14 point review of systems is noncontributory with the exception of above. Objective Vital Signs and I&Os Vital Signs Date Time Temp Pulse Resp B/P B/P Pulse O2 O2 Flow FiO2 Mean Ox Delivery Rate 10/10 0621 98.4 83 24 136/68 97 Nasal 3.5L Cannula 10/10 0000 Nasal 3.5L Cannula 10/09 2258 98.4 87 18 144/70 96 Nasal Cannula 10/09 1600 Nasal 2.0L Cannula 10/09 1521 98.5 86 18 120/80 97 10/09 1516 98.5 86 18 120/80 97 Nasal 4.0L Cannula 10/09 1225 98.4 84 18 140/80 96 Nasal 4.0L Cannula 10/09 1224 98.3 85 20 158/90 94 Nasal 4.0L Cannula Intake & Output 10/10 1600 10/10 0800 10/10 0000 10/09 1600 10/09 0800 10/09 0000 Intake Total 600 600 960 480 Output Total 225 200 450 150 50 Balance 375 400 -450 810 430 Intake, IV 600 600 600 Intake, Oral 360 480 Number 0 Bowel Movements Output, Urine 225 200 450 150 50 Physical Exam: General: Nontoxic, no apparent distress. HEENT: Sclera and conjunctiva within normal limits, without xanthelasmas. Neck: Carotids 2+ without bruits. Respiratory: Clear to auscultation, air movement is good, without accessory respiratory muscle use. Heart: Regular rate and rhythm, without murmurs, without JVD. Abdomen: Soft, nontender, no masses, normoactive bowel sounds. Extremities: Without clubbing, cyanosis, without edema. Neuro: Nonfocal exam, strength, 5 out of 5 Skin: Within normal limits without lesions. Psych: Mood and affect: Unable to fully assess Current Medications: Current Medications Sig/Dylan Start time Last Medication Dose Route Stop Time Status Admin Acetaminophen 650 MG Q4P PRN 10/08 1815 AC PO Aspirin 81 MG DAILY 10/09 1030 AC 10/09 PO 1131 Bupropion HCl 150 MG DAILY 10/08 899 AC PO Clopidogrel Bisulfate 75 MG DAILY 10/10 899 AC PO Dextrose/Sodium 1,000 ML Q20H 10/09 2200 CAN Chloride IV 10/10 1759 Dextrose/Sodium 1,000 ML Q13H 10/09 2030 AC 10/10 Chloride IV 1053 Dextrose/Sodium 1,000 ML Q13H 10/08 1915 DC 10/09 Chloride IV 1131 Enoxaparin Sodium 40 MG QPM 10/09 1030 AC 10/09 SC 202 Famotidine 20 MG BID 10/08 899 AC 10/08 PO 204 Gabapentin 300 MG AT BEDTIME 10/08 2099 AC 10/08 PO 204 Hydromorphone HCl 0.4 MG Q4P PRN 10/08 0430 DC 10/08 IV 2225 Levothyroxine Sodium 0.125 MG DAILY AC 10/08 699 AC 10/09 PO 0536 Losartan Potassium 50 MG DAILY 10/08 1411 DC PO Morphine Sulfate 2 MG Q6P PRN 10/09 2029 AC 10/10 IV 0339 Nadolol 80 MG DAILY 10/08 899 DC 10/08 PO 0816 Ondansetron HCl 4 MG Q6P PRN 10/08 2245 AC 10/08 IV 2238 Oxycodone/ 1 TAB Q4P PRN 10/08 181 DC 10/09 Acetaminophen PO 0410 Oxycodone/ 2 TAB Q4P PRN 10/08 1815 DC Acetaminophen PO Patient Medication 1 ED ONE ONE 10/09 1715 DC Teaching ED 10/09 1716 Pravastatin Sodium 40 MG 1700 10/08 1700 AC 10/08 PO 204 Zolpidem Tartrate 5 MG QPM 10/08 2100 AC 10/08 PO 2045 Results Last 48 Hrs of Labs/Mics: Laboratory Tests 10/10/17 0614: Anion Gap 9, Estimated GFR > 60, BUN/Creatinine Ratio 24.0, Hemoglobin A1c 6.2 H, Triglycerides 89, Cholesterol 99, LDL Cholesterol, Calc 51 L, HDL Cholesterol 31 L, Cholesterol/HDL Ratio 3, CBC w Diff NO MAN DIFF REQ, RBC 3.47 L, MCV 83.2, MCH 27.1, MCHC 32.6 L, RDW 14.4, MPV 7.3 L, Gran % 84.3 H, Lymphocytes % 4.7 L, Monocytes % 10.3 H, Eosinophils % 0.6, Basophils % 0.1, Absolute Granulocytes 9.6 H, Absolute Lymphocytes 0.5 L, Absolute Monocytes 1.2 H, Absolute Eosinophils 0.1, Absolute Basophils 0 Assessment/Plan Assessment/Plan 71-year-old woman with a past medical history of hypertension, hyperlipidemia, COPD, Serjio's thyroiditis and prior CVA (with a Medtronic Linq implant to evaluate for paroxysmal atrial fibrillation: Negative to date). She presents to our hospital following a mechanical fall, sustaining a right hip fracture, and required surgical repair of the same. Hip fracture: Patient presents with a hip fracture secondary to mechanical fall. She is now status post operative repair of the same, and without perioperative cardiac complications; however, with possible postoperative CVA. Neurology input is appreciated. Hypertension: The patient currently has suboptimally controlled hypertension; however, on review of her outpatient records, she appears to be better controlled. At this time, we will continue her current medication regimen and further titrate as an outpatient. Linq implantation: The patient has a Medtronic Linq implantation to exclude a cryptogenic source of her prior CVA. This has been unrevealing for arrhythmia to date. Telemetry monitoring since admission demonstrates no significant arrhythmias. Continue telemetry? Yes
--- NOTE | 2017-10-10 14:17 | Discharge Summary ---
Visit Information Visit Dates Admission Date: 10/08/17 Discharge Date: 10/13/17 Hospital Course Course Attending Physician: Ella ESPINOSA,Toña Foster Primary Care Physician: Eduard ESPINOSA,[facility] Course: Ms Szymanski is a 71-year-old lady past medical history of hypertension, hyperlipidemia, COPD, diverticulitis, anxiety, depression, Hashimotos thyroiditis and right breast cancer center to the [place] [facility] emergency department after fall on 10/08/2017. According to the patient she was getting out of her friend's house, didn't realize she had to take the stairs, she stepped down, tripped and fell on her right side. Denied hitting her head or loss of consciousness. Also denied any chest pain, palpitations, lightheadedness/dizziness, weakness/numbness or tingling any part of her body or headaches prior to or after the fall. She was able to get up and drive herself to [facility], but because of a longer wait time she decided to drive back home and come back in the morning. She had to take a flight of stairs to her house, just put pressure on her right leg, mentions hearing a crack in her leg gave away and she sat down because she was unable to get up because of the excruciating pain. Her neighbor called the ambulance and she was brought into the [facility] ER. Vitals on admission were temperature 96.8, heart rate 90, respiratory rate 20, BP 192/108, and oxygen saturation 90% on room air. She had a WBC count of 18.1, H&H 13.4/41.2, platelet count 544, INR 1.54 and unremarkable BEP. Right hip x-ray showed femoral neck fracture with Varus angulation. Problem List; 1. Mechanical Fall 2. Right femoral neck fracture 3. Leukocytosis and thrombosytosis - liekly reactive 4. Hypertension - BP 192/108 likely 2/2 to pain 5. Hx of Hypothyroidism and HLD ---- 1. Mechanical fall status post right femoral neck fracture 71yoF BIBA with right hip pain after fall. X-ray showed right femoral neck fracture. She was evaluated by ortho and hall cleaner prior to the surgery. Given her cardiac history and current capacity to perform greater than 6 METs of physical activity on a regular basis without cardiac symptoms as well as her recent echocardiogram results and Linq interrogation, she underwent ORIF procedure without the need for further preoperative cardiac testing. RCRI risk score of 0, she is at a low risk (0.4% ) of any major cardiac events for this intermediate risk surgery. She received antibiotics postoperatively 2 doses, continued with pain management. She was started on Lovenox 40 mg subcutaneously 1 day after surgery. She tolerated procedure well with no postop complications. Anticoagulation was changed to Pradaxa 150 mg twice daily once she passed swallow evaluation. She will be discharged on Pradaxa 150 twice daily for DVT prophylaxis for the next 6 weeks until 11/19/2017. 2. Stroke On 10/09/2017 patient was found to have flaccid right upper extremity with difficulty finding words, partial response to commands and appeared very lethargic compared to her baseline. Rapid response and stroke alert was called. CAT scan head showed Moderate motion degradation. No evidence of hemorrhage or large territorial infarct. Stable chronic microangiopathy and volume loss relative to the prior study of 05/31/2017 She is not a candidate for TPA given her recent surgery. She was started on aspirin 81 daily which is her home medication (held prior to the ortho surgery ) . Aspirin was given rectally as she failed swallow evaluation. Later on once she passed swallow evaluation aspirin was stopped and started on Plavix 75 daily for stroke secondary prevention. Echocardiogram was done which showed normal ejection fraction, no wall motion abnormalities. Also interrogated Linq monitor, no arrhythmias were found. Hypertension Patient usually takes nadolol, losartan, hydrochlorothiazide for her blood pressure. However it was held initially during her hospital stay given stroke/ in order to maintain permissive hypertension. Later on home blood pressure medications were resumed Hyperlipidemia She was continued on pravastatin 40 mg daily COPD Provided supplemental oxygen and total respiratory care Serjio's thyroiditis She was continued on her home medication levothyroxine 125 mcg daily GERD Continue famotidine 20 mg twice daily Mental health Continue home medication bupropion 150 mg daily Complications: NOTED ABOVE Allergies: Coded Allergies: azithromycin (Intermediate, HIGH BP 10/08/17) carisoprodol (From Soma) (Intermediate, MAKES ME DRUNK 10/08/17) Significant Procedures: Operative Indication: Patient is a 71-year-old woman who fell at home injuring her right hip. She was found to have a displaced femoral neck hip fracture. She was admitted to medical service for medical clearance for recommended right hip surgery. We discussed the findings with patient including recommendations concerning hemiarthroplasty versus total hip arthroplasty. After discussion of risks benefits and expectations of both procedures, decision was made to proceed with a hemiarthroplasty. Risks, benefits and expectations of this procedure were discussed which included but were not limited to persistent hip pain, need for subsequent surgery, infection, DVT, injury to blood vessel or nerve, anesthesia risks, leg length discrepancy dislocation. She wished to proceed with the hemiarthroplasty procedure Operative/Procedure Note Note: Patient was brought to the operating room and transferred to the operating table. Once under appropriate anesthesia the patient was placed into a left lateral decubitus position with right side up. All bony prominences were well- padded. The right lower extremity was prepped and draped in standard fashion. Preoperative IV antibiotics were given prophylactically. A standard lateral incision was made for anticipated superior approach to the hip. The incision was taken down sharply to the underlying fascia. Fascia was incised in line with the skin incision. The hip was internally rotated placing the external rotators on tension. The piriformis was identified and reflected posteriorly. The retractors were placed underneath the gluteus minimus tendon and inferiorly to the femoral neck. A T-incision was made in the capsule and the inferior and superior flaps of the posterior capsule were tagged and reflected posteriorly for later repair. The hip was visualized. A large hemarthrosis was evacuated. Comminution of the femoral neck was identified. These comminuted fragments were removed. The fracture itself was a high femoral neck and therefore a femoral neck cut was needed to remove the femoral head from the acetabular fossa. This was done in standard fashion protecting the soft tissues. I then removed the femoral head and measured it to a size 48. I uses trial 48 femoral head and confirmed the sizing. The acetabulum was found to be intact. No major change degenerative changes. The labrum was found to be intact. I then exposed the proximal femur and placed retractors underneath and inferior. A box osteotome used to was used to lateralize my insertion site. I then used a canal finder followed by broaching up to a size 4 cemented. The bone itself was fairly osteopenic and I did not feel a uncemented stem would do well. After leaving the last broach in place I did a trial reduction. I was satisfied with the stability of the hip. I was satisfied with baptism of leg lengths. His rotation was removed from the hip copious irrigation of the femoral canal followed. I use a cement restrictor down the distal canal. I used the suction/ tampon device to dry the canal as the cement was being mixed on the back table. Once the cement was ready it was inserted into the femoral canal pressurized properly and then the definitive size 4 Accolade fracture stem was impacted in place and excess cement was removed with curettes. The stem was held in place until cement hardened completely. I then constructed the hemiarthroplasty with the neutral neck which was trialed previously this was done after drying the trunnion. The femoral head was also impacted in place and the hip was reduced. Again stability was confirmed. No evidence of anterior instability with simultaneous extension and external rotation. No evidence of posterior instability with simultaneous adduction internal rotation and flexion to greater than 90. After copious irrigation I then closed the T incision in the capsule with interrupted #1 Vicryl suture.. Every level of closure was followed by copious irrigation. Fascia was closed with a running #1 Vicryl suture. Subcutaneous tissues closed in 2 layers with 2-0 Vicryl and skin was closed with rimma. Appropriate dressings were applied and patient was awakened and taken the recovery room in good condition. No intraoperative complications. Blood loss was less than 100 mL Discharge Disposition: PACU Pertinent Lab Results: hip xry IMPRESSION: Right femoral neck fracture with varus angulation. chest xry IMPRESSION: Similar findings of chronic interstitial lung disease. No superimposed acute process noted. hipxry IMPRESSION: Anatomic alignment status post right hemiarthroplasty Head ct IMPRESSION: Moderate motion degradation. No evidence of hemorrhage or large territorial infarct. Stable chronic microangiopathy and volume loss relative to the prior study of 05/31/2017. ct head/neck 1. No evidence of arterial occlusion or hemodynamically significant stenosis in the head or neck. 2. Slight fullness in the region of the anterior communicating artery, appearing to relate to vessel branching in this locale with a possible 1 mm superimposed infundibulum versus aneurysm projecting anteromedially. 3. No acute intracranial abnormality or abnormal intracranial enhancement is evident. Mild chronic microangiopathy and volume loss, appearing similar to the priors. 4. Chronic inflammatory disease of the paranasal sinuses worse on the left with the suggestion of prior left uncinectomy. 5. Chronic, stable mildly displaced fracture of the right zygoma. 6. Abnormalities within the lung apices including nodular pleural parenchymal scarring, bronchiectasis, parenchymal nodularity, mucous plugging, and some perceived nodular pleural thickening. These findings could be better assessed with CT chest. Disposition Summary Disposition Principal Diagnosis: 1. Mechanical fall 2. Status post right femoral fracture 3. Status post right femoral hip hemiarthroplasty 4. Stroke (ruled out hemorrage) Additional Diagnosis: As above Discharge Disposition: SNF Discharge Instructions General Discharge Information Code Status: Full Code Patient's Diet: As tolerated Patient's Activity: As tolerated Follow-Up Instructions/Appts: Follow-up PCP in 1 week after discharge Follow-up orthopedics in 1 week after discharge Follow-up with hall cleaner in 1 week after discharge Follow-up with the neurologist in 1 week after discharge Medications at Discharge Discharge Medications: Stop taking the following medications: Aspirin (Ecotrin*) 81 MG TABLET.DR ORAL DAILY Qty = 30 Continue taking these medications: Pravastatin Sodium (Pravachol) 40 MG TABLET 1 Tablet ORAL DAILY Comments: Last Taken: 05/31/17 Time: 9:55 PM Nadolol (Corgard) 80 MG TABLET 1 Tablet ORAL DAILY Comments: Last Taken: 06/01/17 Time: 10:30 AM Ibandronate Sodium (Boniva) 150 MG TABLET 1 Tablet ORAL ONCE A MONTH Qty = 3 Instructions: on the same date with a full glass of water at least 30 minutes before first food or drink of the day; remain in an upright posi Comments: Last Taken: NOT GIVEN IN HOSPITAL Time: Gabapentin (Gabapentin) 300 MG CAPSULE 300 Milligram ORAL AT BEDTIME Qty = 14 Comments: Last Taken: 05/31/17 Time: 9:55 PM Levothyroxine Sodium (Synthroid) 125 MCG TABLET 0.125 Milligram ORAL DAILY BEFORE BREAKFAST Qty = 14 Comments: Last Taken: 06/01/17 Time: 6:30 AM Bupropion HCl (Bupropion XL) 150 MG TAB.ER.24H 1 Tablet ORAL DAILY Qty = 90 Comments: Last Taken: 06/01/17 Time: 10:30 AM Zolpidem Tartrate (Zolpidem Tartrate) 10 MG TABLET 5 Milligram ORAL Every night Qty = 30 Comments: Last Taken: 03/14/17 Time: 10:15 PM Ipratropium [place] (Ipratropium [place]) 21 MCG (0.03 %) SPRAY 2 [place] Both sides of nose TWICE DAILY Qty = 30 Comments: Last Taken: NOT GIVEN IN HOSPITAL Time: Famotidine (Famotidine) 20 MG TABLET 1 Tablet ORAL TWICE DAILY Comments: Last Taken: 06/01/17 Time: 10:30 AM Olmesartan/Hydrochlorothiazide (Benicar Hct 20-12.5 MG Tablet) 20 MG-12.5 MG TABLET 1 Tablet ORAL DAILY Qty = 30 Comments: Last Taken: 06/01/17 Time: 10:30 AM Start taking the following new medications: Clopidogrel Bisulfate (Plavix) 75 MG TABLET 1 Tablet ORAL DAILY Qty = 90 No Refills Dabigatran Etexilate Mesylate (Pradaxa 150 MG) 150 MG CAPSULE 1 Capsule ORAL TWICE DAILY Qty = 60 No Refills Instructions: needs 6 weeks till 11/19/2017 Copies To: Isaac ESPINOSA,Luis Mock; Marvin ESPINOSA,Tony; Neo Estrada MD
[2017-10-10 14:42] VITALS: BP 140/68
[2017-10-10 22:55] VITALS: BP 140/80
[2017-10-11 05:59] VITALS: BP 120/64
--- NOTE | 2017-10-11 06:57 | PN- Housestaff ---
Kelsea Shore 10/11/17 0657: Subjective Follow-up For: TIA Status post right hemiarthroplasty Subjective: Patient seen and examined at bedside this morning. Post op day 3 status post hemiarthroplasty. She continues to have expressive aphasia and right sided weakness. She is alert to voice but not able to verbalize person place and time. Patient passed swallow evaluation today and started on ground and thin liquid diet. Will continue to monitor neurological status. Review of Systems Constitutional: Denies: see HPI. Objective Last 24 Hrs of Vital Signs/I&O Vital Signs Date Time Temp Pulse Resp B/P B/P Pulse O2 O2 Flow FiO2 Mean Ox Delivery Rate 10/11 0559 98.3 78 20 120/64 98 Nasal Cannula 10/11 0000 Nasal 3.0L Cannula 10/10 2255 98.7 80 22 140/80 97 Nasal Cannula 10/10 1600 Nasal 3.5L Cannula 10/10 1442 99.7 76 22 140/68 96 Nasal 3.0L Cannula 10/10 1257 Nasal 2.0L Cannula 10/10 0800 94 Nasal 3.0L Cannula Intake & Output 10/11 0800 10/11 0000 10/10 1600 Intake Total 600 600 550 Output Total 275 400 250 Balance 325 200 300 Intake, IV 600 600 550 Output, Urine 275 400 250 Physical Exam General Appearance: Alert, Patient minimally verbal but alert; does not follow commands fully Skin: No Rashes, No Breakdown Neurological: Patients strength 3/5 in upper and lower extremities bilaterally Reflexes are hypoactive Sensation intact Patient able to move toes in both lower extremities Assessment/Plan Assessment: A/P: Patient is a 71 year old female with past medical history of hypertension, hyperlipidemia, COPD, diverticulitis, anxiety, depression, Hashimotos thyroiditis and right breast cancer. Patient had a fall prior to admission leading to right femoral fracture. Post op day 3 status post hemiarthroplasty. Patient for rehab when stable. Passed swallow evaluation 10/11. Diet swtiched to ground and thin. Problem List: 1. TIA 2. Status post right hemiarthroplasty 3. Hashimotos Thyroiditis TIA * Continued right sided weakness and expressive aphasia; improving * Passed swallow evalaution; ground and thin diet began 10/11/17 * ASA rectal for now; pain regimen IV morphine and tylenol * patient more responsive when evaluated from left side * Linq implant interrogated by Dr. See; unrevealing for arrhythmia to date * continue telemetry monitoring; no significant arrhythmias since admission Hypothyroidism * IV synthroid as patient NPO PT Evaluation * patient may become apporpriate for acute rehab if she is able to tolerate increased therapy intensity by time of discharge Severe Protein Malnutrition * Patients BMI 15.7 kg/m2 * Patient passed swallow evaluation today; started on ground/thins * will follow up with nutrition consult accordingly Code Status: Full Code DVT PPx: Lovenox 40mg Diet: Passed swallow evaluation today; Ground/thin IV Fluids D5 1/2 NS Problem List: 1. Hip fracture 2. Hypothyroidism 3. Weakness Pain Ratin Pain Location: Right Hip Pain Goal: Pain 4 or less Pain Plan: As per pain pathway Tomorrow's Labs & Rationales: CBC BEP DVT/Prophylaxis: mechanical, pharmacological JaramilloToña saavedra 10/11/17 1115: Attending MD Review Statement Attending Statement Attending MD Statement: examined this patient, discuss w/resident/PA/C[employer] D[employer]ER, agreed w/resident/PA/C[employer] D[employer]RIER, discussed with family, reviewed EMR data (avail), discussed with nursing, discussed with case mgmt Attending Assessment/Plan: d/w pts daughter amelia at bedside the care plan. Stroke- with rt side weakness and expressive aphasia- cont rectal asa suppository for now. will cont to monitor her bp and will allow permissive htn. will f/u on neuro recommendations. Hypothyroidism- cont iv levothyroxine for now as pt npo PT eval - cont to follow their recommendations. STR recommended. Dysphagia- currently npo. will get speech to reevaluate. d/w family at bedside about tube feeds options if pts dysphagia does not improve in view of her poor nutritional status Severe protein calorie malnutrition- pt still npo. will f/u on speech recommendations.
[2017-10-11 08:15] LABS: ABSOLUTE BASOPHIL COUNT 0 /CUMM (0.0-0.2); ABSOLUTE EOSINOPHIL COUNT 0.2 /CUMM (0.0-0.7); ABSOLUTE GRANULOCYTE CT 9.8 /CUMM (1.4-6.5); ABSOLUTE LYMPH COUNT 0.7 /CUMM (1.2-3.4); ABSOLUTE MONOCYTE COUNT 1.5 /CUMM (0.10-0.60); BASOPHIL % 0.3 % (0.0-2.0); EOSINOPHIL % 1.2 % (0-5); GRANULOCYTE % 80.4 % (42.2-75.2); HEMATOCRIT 28.1 % (37-47); MEAN CORPUSCULAR HGB 26.9 PG (27.0-31.0); MEAN CORPUSCULAR HGB CONC 32.2 G/DL (33.0-37.0); MEAN CORPUSCULAR VOLUME 83.6 FL (81.0-99.0); MEAN PLATELET VOLUME 7.4 FL (7.4-10.4); PLATELET COUNT 322 /CUMM (130-400); RBC DISTRIBUTION WIDTH 14.1 % (11.5-14.5); RED BLOOD CELL CT 3.36 /CUMM (4.20-5.40); WHITE BLOOD CELL COUNT 12.2 /CUMM (4.8-10.8)
--- NOTE | 2017-10-11 09:54 | ECHOCARDIOGRAM REPORT ---
OZZIE CLEARY Age: 71 : 1945 Gender: F Exam Date: 10/10/2017 19:11 Exam Location: [facility] Ht (in): 64 Wt (lb): 91 BSA: 1.35 BP: 136 / 68 Ordering Physician: Candido Eckert MD Referring Physician: Johnny See M.D. Technologist: Kitty Gotti RHIANNON Room Number: [id number] Indications: SOURCE OF EMBOLUS Rhythm: Sinus Technical Quality: fair FINDINGS Left Ventricle Normal size left ventricle. Left ventricular wall thickness mildly increased. Normal left ventricular ejection fraction estimated at 60-65%. Right Ventricle Normal right ventricular size and function. Right Atrium Normal right atrial size. Left Atrium Normal left atrial size. Mitral Valve Mitral valve not well visualized, grossly normal. Trace to mild mitral regurgitation. Aortic Valve Diffuse thickening (sclerosis) of the aortic valve cusps without reduced excursion. Tricuspid Valve Tricuspid valve is normal in structure and function. Mild tricuspid regurgitation. Right ventricular systolic pressure estimated to be elevated at 44 mmHg. Pulmonic Valve Pulmonic valve not well visualized, grossly normal. Pericardium No pericardial effusion. Great Vessels Normal size aortic root. CONCLUSIONS Normal left ventricular systolic function with mild concentric hypertrophy.Mild Pulmonary hypertension. Dano Peguero M.D. (Electronically Signed) Final Date: 11 October 2017 09:51 MEASUREMENTS (Male / Female) Normal Values 2D ECHO LV Diastolic Diameter PLAX 3.3 cm 4.2 - 5.9 / 3.9 - 5.3 cm LV Systolic Diameter PLAX 1.7 cm 2.1 - 4.0 cm LV Fractional Shortening PLAX 48.5 % 25 - 46 % LV Ejection Fraction 2D Teich 81.0 % IVS Diastolic Thickness 1.4 cm LVPW Diastolic Thickness 1.3 cm LV Relative Wall Thickness 0.8 RV Internal Dim ED PLAX 2.2 cm 1.9 - 3.8 cm LVOT Diameter 2.1 cm Aortic Root Diameter 3.1 cm LA Systolic Diameter LX 2.1 cm 3.0 - 4.0 / 2.7 - 3.8 cm LA Volume 23.0 cm 18 - 58 / 22 - 52 cm Ascending Aorta Diameter 3.2 cm DOPPLER AV Peak Velocity 100.0 cm/s AV Peak Gradient 4.0 mmHg AV Mean Velocity 70.0 cm/s AV Mean Gradient 2.0 mmHg AV Velocity Time Integral 21.2 cm LVOT Peak Velocity 72.2 cm/s LVOT Peak Gradient 2.1 mmHg LVOT Mean Velocity 45.4 cm/s LVOT Mean Gradient 1.0 mmHg LVOT Velocity Time Integral 17.5 cm LVOT Stroke Volume 60.6 cm AV Area Cont Eq vti 2.9 cm AV Area Cont Eq pk 2.5 cm MV Peak Velocity 100.0 cm/s MV Peak Gradient 4.0 mmHg MV Mean Velocity 52.4 cm/s MV Mean Gradient 1.0 mmHg Mitral E Point Velocity 57.3 cm/s Mitral A Point Velocity 77.5 cm/s Mitral E to A Ratio 0.7 MV PHT Velocity 72.1 cm/s MV Deceleration [place] 346.0 cm/s MV Pressure Half Time 62.5 ms MV Area PHT 3.5 cm MV Deceleration Time 293.0 ms TR Peak Velocity 304.0 cm/s TR Peak Gradient 37.0 mmHg Right Atrial Pressure 5.0 mmHg Pulmonary Artery Systolic Pressure 42.0 mmHg Right Ventricular Systolic Pressure 42.0 mmHg PV Peak Velocity 75.8 cm/s PV Peak Gradient 2.3 mmHg PV Mean Velocity 53.9 cm/s PV Mean Gradient 1.0 mmHg PV Velocity Time Integral 16.7 cm LV E' Lateral Velocity 5.7 cm/s Mitral E to LV E' Lateral Ratio 10.1 LV E' Septal Velocity 4.5 cm/s Mitral E to LV E' Septal Ratio 12.8
--- NOTE | 2017-10-11 11:02 | PN- Cardiology ---
Subjective Subjective: Patient being tested with swallow eval. Telemetry sinus rhythm. Admits to no chest pain but somewhat frustrated by her recent stroke. Objective Vital Signs and I&Os Vital Signs Date Time Temp Pulse Resp B/P B/P Pulse O2 O2 Flow FiO2 Mean Ox Delivery Rate 10/11 0559 98.3 78 20 120/64 98 Nasal Cannula 10/11 0000 Nasal 3.0L Cannula 10/10 2255 98.7 80 22 140/80 97 Nasal Cannula 10/10 1600 Nasal 3.5L Cannula 10/10 1442 99.7 76 22 140/68 96 Nasal 3.0L Cannula 10/10 1257 Nasal 2.0L Cannula Intake & Output 10/11 1600 10/11 0800 10/11 0000 10/10 1600 10/10 0800 10/10 0000 Intake Total 600 600 550 600 600 Output Total 275 400 250 225 200 Balance 325 200 300 375 400 Intake, IV 600 600 550 600 600 Output, Urine 275 400 250 225 200 Physical Exam: Patient appeared comfortable Head normocephalic atraumatic Eyes sclera anicteric conjunctiva showed no pallor extraocular muscles were normal Neck no jugular vein distention no thyroid masses no palpable nodes Chest lungs are clear bilaterally Heart regular rhythm with a 1/6 systolic murmur Abdomen soft no organomegaly Extremities no edema Current Medications: Current Medications Sig/Dylan Start time Last Medication Dose Route Stop Time Status Admin Acetaminophen 615 MG Q6-PRN PRN 10/10 1400 AC 10/11 IV 0303 Acetaminophen 1,000 MG Q6P PRN 10/10 1345 DC 10/10 N/A 1 UNIT IV 1347 Acetaminophen 650 MG Q4P PRN 10/08 1815 AC PO Aspirin 300 MG DAILY 10/10 1200 AC 10/11 W[place] 1010 Aspirin 81 MG DAILY 10/09 1030 AC 10/09 PO 1131 Bupropion HCl 150 MG DAILY 10/08 09 AC PO Clopidogrel Bisulfate 75 MG DAILY 10/10 09 AC PO Dextrose/Sodium 1,000 ML Q20H 10/11 0900 AC 10/11 Chloride IV 0901 Dextrose/Sodium 1,000 ML Q20H 10/10 1330 DC 10/10 Chloride IV 1330 Dextrose/Sodium 1,000 ML Q13H 10/09 2030 DC 10/11 Chloride IV 0303 Enoxaparin Sodium 40 MG QPM 10/09 1030 AC 10/10 SC 2000 Famotidine 20 MG BID 10/08 899 DC 10/08 PO 2043 Gabapentin 300 MG AT BEDTIME 10/08 2100 AC 10/08 PO 2043 Levothyroxine Sodium 62.5 MCG DAILY 10/11 899 AC 10/11 IV 901 Levothyroxine Sodium 62.5 MCG DAILY AC 10/10 1131 DC 10/10 IV 1311 Levothyroxine Sodium 0.125 MG DAILY AC 10/08 07 DC 10/09 PO 0536 Morphine Sulfate 2 MG Q6P PRN 10/09 2030 AC 10/11 IV 0959 Ondansetron HCl 4 MG Q6P PRN 10/08 2245 AC 10/08 IV 2238 Pantoprazole Sodium 40 MG DAILY 10/10 1645 AC 10/11 IV 09 Pravastatin Sodium 40 MG 1700 10/08 1700 AC 10/08 PO 2044 Zolpidem Tartrate 5 MG QPM 10/08 2099 DC 10/08 PO 2044 Results Last 48 Hrs of Labs/Mics: Laboratory Tests 10/11/17 0630: Anion Gap 7, Estimated GFR > 60, BUN/Creatinine Ratio 18.3, CBC w Diff NO MAN DIFF REQ, RBC 3.36 L, MCV 83.6, MCH 26.9 L, MCHC 32.2 L, RDW 14.1, MPV 7.4, Gran % 80.4 H, Lymphocytes % 5.8 L, Monocytes % 12.3 H, Eosinophils % 1.2, Basophils % 0.3, Absolute Granulocytes 9.8 H, Absolute Lymphocytes 0.7 L, Absolute Monocytes 1.5 H, Absolute Eosinophils 0.2, Absolute Basophils 0 10/10/17 06: Anion Gap 9, Estimated GFR > 60, BUN/Creatinine Ratio 24.0, Hemoglobin A1c 6.2 H, Triglycerides 89, Cholesterol 99, LDL Cholesterol, Calc 51 L, HDL Cholesterol 31 L, Cholesterol/HDL Ratio 3, CBC w Diff NO MAN DIFF REQ, RBC 3.47 L, MCV 83.2, MCH 27.1, MCHC 32.6 L, RDW 14.4, MPV 7.3 L, Gran % 84.3 H, Lymphocytes % 4.7 L, Monocytes % 10.3 H, Eosinophils % 0.6, Basophils % 0.1, Absolute Granulocytes 9.6 H, Absolute Lymphocytes 0.5 L, Absolute Monocytes 1.2 H, Absolute Eosinophils 0.1, Absolute Basophils 0 Recent Imaging Studies: Cardiogram. Normal left ventricular and right ventricle systolic function. Mild LVH. No obvious cardiac source of embolus noted although the echo windows suboptimal. Assessment/Plan Assessment/Plan In summary this 71-year-old female has the following -[id number] woman with a past medical history of hypertension, hyperlipidemia, COPD, Serjio's thyroiditis and prior CVA (with a Medtronic Linq implant to evaluate for paroxysmal atrial fibrillation: Negative to date). She presents to our hospital following a mechanical fall, sustaining a right hip fracture, and required surgical repair of the same. Hip fracture: Patient presents with a hip fracture secondary to mechanical fall. She is now status post operative repair of the same, and without perioperative cardiac complications; however, with possible postoperative CVA. Neurology input is appreciated. Hypertension: The patient appears to have fairly stable blood pressure recordings at this time. She is still n.p.o. as she HAS failed a swallow eval. Linq implantation: The patient has a Medtronic Linq implantation to exclude a cryptogenic source of her prior CVA. This has been unrevealing for arrhythmia to date. Telemetry monitoring since admission demonstrates no significant arrhythmias. Swallow eval in progress. Rehab being planned. Continue telemetry? Yes
--- NOTE | 2017-10-11 13:35 | PN- Orthopedic ---
See Addendum Subjective Subjective: No acute overnight events reported. Pt more conversive, does not recall events of prior days and is frustrated. Denies chest pain and shortness of breath. Acknoweldges improved use of right side. Does not complain of pain to surgical site. Objective Vital Signs and I&Os Vital Signs Date Time Temp Pulse Resp B/P B/P Pulse O2 O2 Flow FiO2 Mean Ox Delivery Rate 10/11 0559 98.3 78 20 120/64 98 Nasal Cannula 10/11 0000 Nasal 3.0L Cannula 10/10 2255 98.7 80 22 140/80 97 Nasal Cannula 10/10 1600 Nasal 3.5L Cannula 10/10 1442 99.7 76 22 140/68 96 Nasal 3.0L Cannula Intake & Output 10/11 0800 10/11 0000 10/10 1600 10/10 0810/10 0000 Intake Total 600 600 550 600 600 Output Total 275 400 250 225 200 Balance 325 200 300 375 400 Intake, IV 600 600 550 600 600 Output, Urine 275 400 250 225 200 Physical Exam: General: Alert, oriented to person and place, does not recall events of prior two days Cardiac: RRR, s1s2 Pulm: C T A, non-labored Abd: Non-tender Extremiteis: Neurovascualr intact. Thigh compartment soft, no evidence of hematoma, dressing dry and intact Assessment/Plan Assessment/Plan This is a 71 year old female, POD 3, s/p R hip hemiarthroplasty, questionable tia post op -Continue pradaxa dc lovenox. 6 week anticoagulation for surgical ppx, will defer to medical/neuro for prolonged course of anticoagulation after that period of time. -OOB, wbat -Daily dressing changes Primary care per medical team Ortho surgery available
[2017-10-11 14:43] VITALS: BP 142/78
[2017-10-11 22:09] VITALS: BP 130/70
--- NOTE | 2017-10-12 06:59 | PN- Housestaff ---
Kelsea Shore 10/12/17 0658: Subjective Follow-up For: TIA Subjective: Patient seen and examined at bedside this morning. Patient improving in terms of mental status. Is alert to voice and follows commands. Patient able to eat grounds/thins after passing swallow eval. Seen by PT this morning during assessment. Was able to get out of bed to chair. Hemoglobin trending down will transfuse one unit. Review of Systems Constitutional: Denies: see HPI. Objective Last 24 Hrs of Vital Signs/I&O Vital Signs Date Time Temp Pulse Resp B/P B/P Pulse O2 O2 Flow FiO2 Mean Ox Delivery Rate 10/12 1345 98 136/66 10/12 1100 Nasal 2.0L Cannula 10/12 1057 Nasal 2.0L Cannula 10/12 1051 Nasal 2.0L Cannula 10/12 0800 97 Nasal 3.0L Cannula 10/12 0703 97.8 69 20 154/68 100 Nasal 3.0L Cannula 10/12 0000 94 Nasal 3.0L Cannula 10/11 2209 98.6 99 20 130/70 98 Intake & Output 10/12 1600 10/12 0800 10/12 0000 Intake Total 520 120 Output Total 325 225 Balance 195 -105 Intake, IV 400 Intake, Oral 120 120 Output, Urine 325 225 Physical Exam General Appearance: Alert, Cooperative, No Acute Distress, Patient alert to person; minimally verbal HEENT: PERRLA, EOMI, Mucous Membr. moist/pink Cardiovascular: Regular Rate, Normal S1, Normal S2 Lungs: Clear to Auscultation, Normal Air Movement Abdomen: Normal Bowel Sounds, Soft, No Tenderness Neurological: Strength 4/5 in upper/lower extremities Reflexes hyporeflexes Gait unassessed Normal tone and sensation intact Pupils equal and reactive to light Extremities: No Clubbing, No Cyanosis, No Edema, Normal Pulses Vascular: Normal Pulses Current Medications: Current Medications Sig/Dylan Start time Last Medication Dose Route Stop Time Status Admin Acetaminophen 615 MG Q6-PRN PRN 10/10 1400 AC 10/12 IV 1344 Acetaminophen 650 MG Q4P PRN 10/08 1815 AC PO Aspirin 81 MG DAILY 10/09 1030 DC 10/12 PO 08 Bupropion HCl 150 MG DAILY 10/08 09 AC 10/12 PO 08 Clopidogrel Bisulfate 75 MG DAILY 10/10 09 AC 10/12 PO 08 Dabigatran 150 MG BID 10/12 0900 AC 10/12 PO 0812 Dextrose/Sodium 1,000 ML Q20H 10/11 09 DC 10/12 Chloride IV 10/13 0059 0551 Enoxaparin Sodium 40 MG QPM 10/09 1030 DC 10/11 SC 10/12 0000 1955 Gabapentin 300 MG AT BEDTIME 10/08 2100 AC 10/11 PO 1955 Hydrochlorothiazide 12.5 MG DAILY 10/13 0900 AC PO Levothyroxine Sodium 0.125 MG DAILY AC 10/12 0700 AC 10/12 PO 0550 Losartan Potassium 50 MG DAILY 10/12 1122 AC 10/12 PO 1345 Morphine Sulfate 2 MG Q6P PRN 10/09 2030 AC 10/12 IV 0827 Omeprazole 40 MG DAILY AC 10/12 0945 AC 10/12 PO 1345 Ondansetron HCl 4 MG Q6P PRN 10/08 2245 AC 10/08 IV 2238 Pantoprazole Sodium 40 MG DAILY 10/10 1645 DC 10/12 IV 0812 Potassium Chloride 40 MEQ ONCE ONE 10/12 0800 DC 10/12 PO 10/12 0801 0811 Pravastatin Sodium 40 MG 1700 10/08 1700 AC 10/11 PO 1855 Last 24 Hrs of Lab/Eddi Results Last 24 Hrs of Labs/Mics: Laboratory Tests 10/12/17 0639: Anion Gap 6, Estimated GFR > 60, BUN/Creatinine Ratio 24.0, Magnesium 1.9, CBC w Diff NO MAN DIFF REQ, RBC 3.01 L, MCV 84.2, MCH 26.9 L, MCHC 31.9 L, RDW 14.5 , MPV 7.5, Gran % 75.8 H, Lymphocytes % 9.9 L, Monocytes % 10.3 H, Eosinophils % 3.5, Basophils % 0.5, Absolute Granulocytes 7.0 H, Absolute Lymphocytes 0.9 L, Absolute Monocytes 1.0 H, Absolute Eosinophils 0.3, Absolute Basophils 0 Assessment/Plan Assessment: Patient is a 71 year old female with past medical history of hypertension, hyperlipidemia, COPD, diverticulitis, anxiety, depression, Hashimotos thyroiditis and right breast cancer. Patient had a fall prior to admission leading to right femoral fracture. Post op day 4 status post hemiarthroplasty. Patient for rehab when stable. Passed swallow evaluation 10/11. Diet swtiched to ground and thin. Problem List: 1. TIA 2. Status Post Hemiarthroplasty Day 4 4. Hashimotis Thyroiditis TIA * patient continues to have right sided weakness and expressive aphasia; * passed swallow evalutation able to tolerate grounds/thins; medications switched to PO and IV fluids discontinued * continue to monitor blood pressure and allow for permissive hypertension; resume home bp meds if pressures stay on higher side * follow up neuro recommendations * PT evaluated; STR recommended * ASA discontinued; continue pradaxa and plavix Hypothyroidism * PO levothyroxine resumed; IV discontinued Severe Protein Calorie Malnutrition * Nutrition consulted * Started on Ensure Complete protein shakes * BMI 15.7 kg/m2 Acute Blood Loss Anemia * Hemoglobin 8.1; given 1 unit PRBC today * will follow hgb in the AM Hypokalemia * Replaced with KLOR 40 once; repleated Code Status: Full Code DVT PPx: Pradaxa per ortho recommendations Diet: Grounds/thin IV fluids discontinued Problem List: 1. Hypothyroidism 2. Hypertension 3. Weakness Pain Ratin Pain Location: Right hip pain Pain Goal: Pain 4 or less Pain Plan: As per pain pathway Tomorrow's Labs & Rationales: CBC BEP DVT/Prophylaxis: pharmacological Toña Jaramillo 10/12/17 1128: Attending MD Review Statement Attending Statement Attending MD Statement: examined this patient, discuss w/resident/PA/PHYSICIAN ALLERGIST IMMUNOLOGIST, agreed w/resident/PA/PHYSICIAN ALLERGIST IMMUNOLOGIST, reviewed EMR data (avail), discussed with nursing, discussed with case mgmt Attending Assessment/Plan: Stroke- with rt side weakness and expressive aphasia- pt able to tolerate po now. stopped asa, started back on plavix . will cont to monitor her bp and will allow permissive htn. will f/u on neuro recommendations. will resume her home bp meds as tolerated if pressure stays on the higher side. Hypothyroidism- changed back to po levothyroxine. PT eval - cont to follow their recommendations. STR recommended. Dysphagia- able to tolerate po now. started back on diet. Severe protein calorie malnutrition- nutrition consult. started on protein shakes. acute blood loss anemia- hb 8.1. will give 1 U pRBC today. hypokalemia- replaced. dvt proph- started on pradaxa per ortho recommendations.
[2017-10-12 07:03] VITALS: BP 154/68
[2017-10-12 07:46] LABS: ABSOLUTE BASOPHIL COUNT 0 /CUMM (0.0-0.2); ABSOLUTE EOSINOPHIL COUNT 0.3 /CUMM (0.0-0.7); ABSOLUTE LYMPH COUNT 0.9 /CUMM (1.2-3.4); BASOPHIL % 0.5 % (0.0-2.0); EOSINOPHIL % 3.5 % (0-5); GRANULOCYTE % 75.8 % (42.2-75.2); HEMATOCRIT 25.3 % (37-47); MEAN CORPUSCULAR HGB 26.9 PG (27.0-31.0); MEAN CORPUSCULAR HGB CONC 31.9 G/DL (33.0-37.0); MEAN CORPUSCULAR VOLUME 84.2 FL (81.0-99.0); MEAN PLATELET VOLUME 7.5 FL (7.4-10.4); PLATELET COUNT 313 /CUMM (130-400); RBC DISTRIBUTION WIDTH 14.5 % (11.5-14.5); RED BLOOD CELL CT 3.01 /CUMM (4.20-5.40); WHITE BLOOD CELL COUNT 9.3 /CUMM (4.8-10.8)
--- NOTE | 2017-10-12 11:44 | PN- Cardiology ---
Subjective Subjective: The patient is awake, alert The events of the last 24 hours as well as telemetry were reviewed. Review of Systems: The review of systems is negative for chest pains, palpitations nor lightheadedness. The remainder of the 14 point review of systems is noncontributory with the exception of above. Objective Vital Signs and I&Os Vital Signs Date Time Temp Pulse Resp B/P B/P Pulse O2 O2 Flow FiO2 Mean Ox Delivery Rate 10/12 1100 Nasal 2.0L Cannula 10/12 1057 Nasal 2.0L Cannula 10/12 1051 Nasal 2.0L Cannula 10/12 0703 97.8 69 20 154/68 100 Nasal 3.0L Cannula 10/12 0000 94 Nasal 3.0L Cannula 10/11 2209 98.6 99 20 130/70 98 10/11 1443 99.0 77 20 142/78 97 Nasal 3.0L Cannula Intake & Output 10/12 1600 10/12 0800 10/12 0000 10/11 1600 10/11 0800 10/11 0000 Intake Total 520 120 450 600 600 Output Total 325 225 300 275 400 Balance 195 -105 150 325 200 Intake, IV 400 350 600 600 Intake, Oral 120 120 100 Output, Urine 325 225 300 275 400 Patient 91 lb 3 oz Weight Physical Exam: General: Nontoxic, no apparent distress. HEENT: Sclera and conjunctiva within normal limits, without xanthelasmas. Neck: Carotids 2+ without bruits. Respiratory: Clear to auscultation, air movement is good, without accessory respiratory muscle use. Heart: Regular rate and rhythm, without murmurs, without JVD. Abdomen: Soft, nontender, no masses, normoactive bowel sounds. Extremities: Without clubbing, cyanosis, without edema. Neuro: Nonfocal exam, strength, 5 out of 5 Skin: Within normal limits without lesions. Psych: Mood and affect: Unable to fully assess Current Medications: Current Medications Sig/Dylan Start time Last Medication Dose Route Stop Time Status Admin Acetaminophen 615 MG Q6-PRN PRN 10/10 1400 AC 10/12 IV 0102 Acetaminophen 650 MG Q4P PRN 10/08 1815 AC PO Aspirin 81 MG DAILY 10/09 1030 DC 10/12 PO 0811 Bupropion HCl 150 MG DAILY 10/08 09 AC 10/12 PO 08 Clopidogrel Bisulfate 75 MG DAILY 10/10 0900 AC 10/12 PO 0811 Dabigatran 150 MG BID 10/12 09 AC 10/12 PO 0812 Dextrose/Sodium 1,000 ML Q20H 10/11 09 CA 10/12 Chloride IV 10/13 0059 0551 Enoxaparin Sodium 40 MG QPM 10/09 1030 DC 10/11 SC 10/12 0000 1955 Gabapentin 300 MG AT BEDTIME 10/08 2100 AC 10/11 PO 1955 Hydrochlorothiazide 12.5 MG DAILY 10/13 09 AC PO Levothyroxine Sodium 0.125 MG DAILY AC 10/12 0700 AC 10/12 PO 0550 Losartan Potassium 50 MG DAILY 10/12 1122 AC PO Morphine Sulfate 2 MG Q6P PRN 10/09 2030 AC 10/12 IV 0827 Omeprazole 40 MG DAILY AC 10/12 0945 AC PO Ondansetron HCl 4 MG Q6P PRN 10/08 2245 AC 10/08 IV 2238 Pantoprazole Sodium 40 MG DAILY 10/10 1645 DC 10/12 IV 0812 Potassium Chloride 40 MEQ ONCE ONE 10/12 08 DC 10/12 PO 10/12 0801 0811 Pravastatin Sodium 40 MG 1700 10/08 1700 AC 10/11 PO 1855 Results Last 48 Hrs of Labs/Mics: Laboratory Tests 10/12/17 0639: Anion Gap 6, Estimated GFR > 60, BUN/Creatinine Ratio 24.0, Magnesium 1.9, CBC w Diff NO MAN DIFF REQ, RBC 3.01 L, MCV 84.2, MCH 26.9 L, MCHC 31.9 L, RDW 14.5 , MPV 7.5, Gran % 75.8 H, Lymphocytes % 9.9 L, Monocytes % 10.3 H, Eosinophils % 3.5, Basophils % 0.5, Absolute Granulocytes 7.0 H, Absolute Lymphocytes 0.9 L, Absolute Monocytes 1.0 H, Absolute Eosinophils 0.3, Absolute Basophils 0 10/11/17 0630: Anion Gap 7, Estimated GFR > 60, BUN/Creatinine Ratio 18.3, CBC w Diff NO MAN DIFF REQ, RBC 3.36 L, MCV 83.6, MCH 26.9 L, MCHC 32.2 L, RDW 14.1, MPV 7.4, Gran % 80.4 H, Lymphocytes % 5.8 L, Monocytes % 12.3 H, Eosinophils % 1.2, Basophils % 0.3, Absolute Granulocytes 9.8 H, Absolute Lymphocytes 0.7 L, Absolute Monocytes 1.5 H, Absolute Eosinophils 0.2, Absolute Basophils 0 Assessment/Plan Assessment/Plan 71-year-old woman with a past medical history of hypertension, hyperlipidemia, COPD, Serjio's thyroiditis and prior CVA (with a Medtronic Linq implant to evaluate for paroxysmal atrial fibrillation: Negative to date). She presents to our hospital following a mechanical fall, sustaining a right hip fracture, and required surgical repair of the same. Hip fracture: Patient presents with a hip fracture secondary to mechanical fall. She is now status post operative repair of the same, and without perioperative cardiac complications; however, with postoperative CVA. Neurology input is appreciated. Hypertension: The patient currently has suboptimally controlled hypertension; however, on review of her outpatient records, she appears to be better controlled. At this time, we will continue her current medication regimen and further titrate as an outpatient. Linq implantation: The patient has a Medtronic Linq implantation to exclude a cryptogenic source of her prior CVA. This has been unrevealing for arrhythmia to date. Telemetry monitoring since admission demonstrates no significant arrhythmias. Continue telemetry? No
[2017-10-12] MEDS ORDERED: PRADAXA150 M1 PO (12:47)
[2017-10-12] MEDS ORDERED: PLAVIX75 M1 PO (12:47)
[2017-10-12 14:51] VITALS: BP 132/68
[2017-10-12 23:06] VITALS: BP 150/80
[2017-10-13 07:03] VITALS: BP 160/70
[2017-10-13 08:27] LABS: ABSOLUTE BASOPHIL COUNT 0 /CUMM (0.0-0.2); ABSOLUTE EOSINOPHIL COUNT 0.4 /CUMM (0.0-0.7); ABSOLUTE GRANULOCYTE CT 8.1 /CUMM (1.4-6.5); ABSOLUTE MONOCYTE COUNT 1.1 /CUMM (0.10-0.60); BASOPHIL % 0.3 % (0.0-2.0); EOSINOPHIL % 3.4 % (0-5); GRANULOCYTE % 76.2 % (42.2-75.2); MEAN CORPUSCULAR HGB 27.3 PG (27.0-31.0); MEAN CORPUSCULAR HGB CONC 32.7 G/DL (33.0-37.0); MEAN CORPUSCULAR VOLUME 83.7 FL (81.0-99.0); MEAN PLATELET VOLUME 7.1 FL (7.4-10.4); PLATELET COUNT 372 /CUMM (130-400); RBC DISTRIBUTION WIDTH 14.4 % (11.5-14.5); RED BLOOD CELL CT 3.67 /CUMM (4.20-5.40); WHITE BLOOD CELL COUNT 10.6 /CUMM (4.8-10.8)
--- NOTE | 2017-10-13 09:02 | PN- Housestaff ---
Shaneka Street 10/13/17 0902: Subjective Follow-up For: TIA Complaints: no complaints Tele-Events Since Last Visit: Normal sinus rhythm. Heart rate 84-87. Subjective: No acute events overnight/no complaints. Review of Systems Constitutional: Reports: see HPI. Objective Last 24 Hrs of Vital Signs/I&O Vital Signs Date Time Temp Pulse Resp B/P B/P Pulse O2 O2 Flow FiO2 Mean Ox Delivery Rate 10/13 1418 98.2 84 20 150/74 10/13 0912 150/74 10/13 0800 94 Nasal 3.0L Cannula 10/13 0703 98.2 84 20 160/70 99 10/13 0000 94 Nasal 3.0L Cannula 10/12 2306 99.0 83 24 150/80 96 Intake & Output 10/13 1600 10/13 0800 10/13 0000 Intake Total 600 Output Total 1300 350 350 Balance -700 -350 -350 Intake, Oral 600 Number 1 Bowel Movements Output, Urine 1300 350 350 Physical Exam General Appearance: Alert, Oriented X3, Cooperative, No Acute Distress Skin: No Rashes, No Breakdown, No Significant Lesion Skin Temp/Moisture Exam: Cool/Dry HEENT: Atraumatic Neck: Supple Cardiovascular: Regular Rate, Normal S1, Normal S2 Lungs: Clear to Auscultation, Normal Air Movement Abdomen: Normal Bowel Sounds, Soft, No Tenderness Neurological: Normal Speech, Normal Tone, Sensation Intact, Power 4/5 in upper and lower extremities Extremities: No Clubbing, No Cyanosis, No Edema Assessment/Plan Assessment: Patient is a 71 year old female with past medical history of hypertension, hyperlipidemia, COPD, diverticulitis, anxiety, depression, Hashimotos thyroiditis and right breast cancer. Patient had a fall prior to admission leading to right femoral fracture. Vitals: BP in the 150s/60s, Pulse 80s. Sh is sating fine on 3L oxygen. Problem List: 1. TIA 2. Status Post Hemiarthroplasty Day 4 4. Hashimotis Thyroiditis 5. rt side hemineglect and some weakness on rt side. PLAN: * ost op day 4 status post hemiarthroplasty * d/c today to SNF for STR at [facility] * Code Status: Full Code * DVT PPx: Pradaxa * Diet: Grounds/thin Problem List: 1. Hypothyroidism 2. Weakness 3. Hypertension Pain Ratin Pain Location: right hip Pain Goal: Pain 4 or less Pain Plan: As per pain pathway Tomorrow's Labs & Rationales: cbc [place] 10/13/17 1609: Attending MD Review Statement Attending Statement Attending MD Statement: examined this patient, discuss w/resident/PA/COTTON BREEDER, agreed w/resident/PA/COTTON BREEDER, discussed with family, reviewed EMR data (avail), discussed with nursing, discussed with case mgmt Attending Assessment/Plan: Pt being dced today to SNF for STR at [facility]. Pt s/p ORIF for femoral neck fracture and stroke post surgery with rt side hemineglect and some weakness on rt side. see dc summary for more details. dw/ pt and pts sister at bedside the care plan.
[2017-10-13 09:24] LABS: HEMATOCRIT 30.7 % (37-47)
[2017-10-13] MEDS ORDERED: PRADAXA150 M1 PO (13:15)
[2017-10-13 14:18] VITALS: BP 150/74
== END 2017-10-13 14:53 | DRG 469 ==
LOC: ERH 00:03 → ERHI 03:18 → 1NO 03:18 → ENRESERV 04:05 → 1NO 04:37 → 2NA 04:38 → ENTRNSPT 19:29 → EDTRNSPTSTS 19:52 → CMPTRNSPT 20:19 → 1NO 10-09 09:14 → ENPENDDIS 10-13 13:07 → 1NO 10-13 14:53
PROVIDERS: Internal Medicine; Pediatrics; Physical Medicine & Rehabilitation Pain Medicine
PROC: 0SRR019 Replacement of Right Hip Joint, Femoral Surface with Metal Synthetic Substitute, Cemented, Open Approach (ICD-10-PCS; principal; 2017-10-08)
PROC: 30233N1 Transfusion of Nonautologous Red Blood Cells into Peripheral Vein, Percutaneous Approach (ICD-10-PCS; 2017-10-12)
DX: S72.001A Fracture of unspecified part of neck of right femur, initial encounter for closed fracture (principal); E43 Unspecified severe protein-calorie malnutrition; I63.9 Cerebral infarction, unspecified; R47.01 Aphasia; Z68.1 Body mass index [BMI] 19.9 or less, adult; D62 Acute posthemorrhagic anemia; J44.9 Chronic obstructive pulmonary disease, unspecified; R13.10 Dysphagia, unspecified; E06.3 Autoimmune thyroiditis; E87.6 Hypokalemia; F41.9 Anxiety disorder, unspecified; Y92.009 Unspecified place in unspecified non-institutional (private) residence as the place of occurrence of the external cause; W10.9XXA Fall (on) (from) unspecified stairs and steps, initial encounter; G83.21 Monoplegia of upper limb affecting right dominant side; E03.9 Hypothyroidism, unspecified; I10 Essential (primary) hypertension; F32.9 Major depressive disorder, single episode, unspecified; E78.5 Hyperlipidemia, unspecified; Z85.3 Personal history of malignant neoplasm of breast; Z86.73 Personal history of transient ischemic attack (TIA), and cerebral infarction without residual deficits
CPT/HCPCS: 1NP; 2NAP; 36415; 36592; 71045; 73501; 73502-RT; 81001; 82436; 86920; 87086; 93005; 93010; 93306; 96374; 96375; 97110-GO; 97112-GO; 97116-GO; 97161-GP; 97165-GO; 97530-GO; C1713; J0131; J0690; J1650; J2405; J3490; J7042; P9016